=== PATIENT | female | born 1940 | race Caucasian/White ===

== ENCOUNTER → 2017-07-12 09:48 | Outpatient (CLI) | payer MEDICARE, SELFPAY ==
[2017-07-12 12:36] LABS: Absolute Neutrophil Count 1.6 X10^3/uL (2.0-7.7); Basophil# 0.01 X10^3/uL; Basophil% 0.2 % (0-1); Eosinophil# 0.12 X10^3/uL; Eosinophils% 2.8 % (0-5); Hematocrit 39.1 % (37-47); Hemoglobin 12.7 g/dl (12.0-15.0); Lymphocyte % 46.4 % (19-41); Mean Corp Hgb Conc 32.5 g/gl (32-36); Mean Corpuscular Hgb 32.9 pg (27.0-32.0); Mean Corpuscular Volume 101.3 fL (81-99); Mean Platelet Vol. 10.6 fl (6.2-12.0); Monocyte# 0.59 X10^3/uL; Monocyte% 13.7 % (0-10); Neutrophil # 1.58 X10^3/uL (2.7-7.7); Neutrophil % 36.7 % (47-70); Platelet Count 258 K/mm3 (150-450); RBC Distribution Width CV 12.6 % (11.6-14.6); RBC Distribution Width SD 46.5 fl (35.1-43.9); Red Blood Count 3.86 M/mm3 (4.2-5.4); White Blood Count 4.3 K/mm3 (4.4-11.0)
[2017-07-12 12:38] LABS: AST(SGOT) 21 U/L (15-37); Alanine Aminotransfer ALT/SGPT 20 U/L (13-56); Albumin, Serum 3.6 g/dL (3.2-5.0); Alkaline Phosphatase 75 U/L (45-117); Anion Gap 4 (5-15); BUN 12 mg/dL (7-18); BUN/Creat Ratio 16.2 RATIO (10-20); Calcium,Total 8.7 mg/dL (8.5-10.1); Chloride 103 mmol/L (98-107); Creatinine, Serum 0.74 mg/dL (0.55-1.02); EST Glomerular Filtration Rate 80 mL/min (>60); Est Glom Filt Rate - Afr Amer 97 mL/min (>60); Globulin 3.5 g/dL (2.2-4.2); Glucose 89 mg/dL (74-106); Potassium 4.1 mmol/L (3.5-5.1); Protein, Total 7.1 g/dL (6.4-8.2); Sodium Level 138 mmol/L (136-145)
[2017-07-12 12:46] LABS: POSITIVE COUNT NO; POSITIVE DIFFERENTIAL NO; POSITIVE MORPHOLOGY NO
== END ==
PROVIDERS: Family Provider Family Medicine; PCP Family Medicine; Visit Provider Internal Medicine Rheumatology
DX: M06.00 Rheumatoid arthritis without rheumatoid factor, unspecified site (principal); Z79.899 Other long term (current) drug therapy; M17.0 Bilateral primary osteoarthritis of knee; M47.896 Other spondylosis, lumbar region
CPT/HCPCS: 36415; 80053; 85025

== ENCOUNTER → 2017-07-18 10:32 | Outpatient (CLI) | payer MEDICARE, SELFPAY ==
[2017-07-18 12:26] LABS: Thyroid Stim Hormone (TSH) 2.16 uIU/mL (0.358-3.74)
== END ==
PROVIDERS: Family Medicine; Family Provider Family Medicine; PCP Family Medicine; Visit Provider Family Medicine
DX: R63.5 Abnormal weight gain (principal)
CPT/HCPCS: 36415; 84443

== ENCOUNTER → 2017-07-26 12:00 | Outpatient (CLI) | payer MEDICARE, SELFPAY ==
--- NOTE | 2017-07-26 12:00 | DT_ITS ---
This patient was seen during an EMR downtime July 23, 2017 - July 30, 2017. This patient may have a combination of paper and electronic documentation or all paper documentation. All documentation is viewable within the e-chart portion of [facility] for each patient visit.
== END ==
PROVIDERS: Family Provider Family Medicine; PCP Family Medicine; Visit Provider Internal Medicine Rheumatology
DX: M06.00 Rheumatoid arthritis without rheumatoid factor, unspecified site (principal)
CPT/HCPCS: 96413; 96415; J7050; A4216; Q5103

== ENCOUNTER → 2017-09-27 09:48 | Outpatient (CLI) | payer MEDICARE, SELFPAY ==
[2017-09-27 10:06] VITALS: BP 121/65; PULSE 78; RESP 16; TEMP 36.9; O2SAT 98; BMI 27.5
[2017-09-27 10:57] VITALS: BP 105/57; PULSE 64; RESP 16; TEMP 36.3; O2SAT 98
[2017-09-27 11:13] VITALS: BP 107/61; PULSE 62; RESP 16; TEMP 36.2; O2SAT 99
[2017-09-27 11:35] VITALS: BP 116/69; PULSE 65; RESP 16; TEMP 36.4; O2SAT 100
[2017-09-27 11:53] VITALS: BP 115/53; PULSE 64; RESP 16; TEMP 36.4; O2SAT 99
== END ==
PROVIDERS: Family Provider Family Medicine; PCP Family Medicine; Visit Provider Internal Medicine Rheumatology
DX: M06.00 Rheumatoid arthritis without rheumatoid factor, unspecified site (principal)
CPT/HCPCS: 96365; 96413; J7050; A4216; Q5103

== ENCOUNTER → 2017-10-10 10:19 | Outpatient (CLI) | payer MEDICARE, SELFPAY ==
[2017-10-10 12:24] LABS: Absolute Lymphocyte Count 2.22 X10^3/ul (0.83-4.51); Absolute Neutrophil Count 1.9 X10^3/uL (2.0-7.7); Basophil# 0.03 X10^3/uL; Basophil% 0.6 % (0-1); Eosinophil# 0.17 X10^3/uL; Eosinophils% 3.4 % (0-5); Hematocrit 39.8 % (37-47); Hemoglobin 12.5 g/dl (12.0-15.0); Lymphocyte # 2.22 X10^3/ul (4.0); Lymphocyte % 44.6 % (19-41); Mean Corp Hgb Conc 31.4 g/gl (32-36); Mean Corpuscular Hgb 31.8 pg (27.0-32.0); Mean Corpuscular Volume 101.3 fL (81-99); Mean Platelet Vol. 10.6 fl (6.2-12.0); Monocyte% 14.1 % (0-10); Neutrophil # 1.86 X10^3/uL (2.7-7.7); Neutrophil % 37.3 % (47-70); Platelet Count 262 K/mm3 (150-450); RBC Distribution Width CV 13.3 % (11.6-14.6); RBC Distribution Width SD 49.7 fl (35.1-43.9); Red Blood Count 3.93 M/mm3 (4.2-5.4)
[2017-10-10 12:28] LABS: POSITIVE COUNT NO; POSITIVE DIFFERENTIAL NO; POSITIVE MORPHOLOGY NO
[2017-10-10 12:56] LABS: AST(SGOT) 19 U/L (15-37); Alanine Aminotransfer ALT/SGPT 19 U/L (13-56); Albumin, Serum 3.4 g/dL (3.2-5.0); Alkaline Phosphatase 76 U/L (45-117); Anion Gap 6 (5-15); BUN 18 mg/dL (7-18); BUN/Creat Ratio 21.3 RATIO (10-20); Calcium,Total 8.7 mg/dL (8.5-10.1); Chloride 104 mmol/L (98-107); Creatinine, Serum 0.84 mg/dL (0.55-1.02); EST Glomerular Filtration Rate 69 mL/min (>60); Est Glom Filt Rate - Afr Amer 84 mL/min (>60); Globulin 3.5 g/dL (2.2-4.2); Glucose 85 mg/dL (74-106); Potassium 4.1 mmol/L (3.5-5.1); Protein, Total 6.9 g/dL (6.4-8.2); Sodium Level 140 mmol/L (136-145)
== END ==
PROVIDERS: Family Provider Family Medicine; PCP Family Medicine; Visit Provider Internal Medicine Rheumatology
DX: M06.00 Rheumatoid arthritis without rheumatoid factor, unspecified site (principal); Z79.899 Other long term (current) drug therapy; M17.0 Bilateral primary osteoarthritis of knee; M47.896 Other spondylosis, lumbar region
CPT/HCPCS: 36415; 80053; 85025

== ENCOUNTER → 2018-09-18 13:42 | Outpatient (CLI) | payer MEDICARE, SELFPAY ==
[2017-09-27 10:06] VITALS: BMI 27.5
[2018-09-18 14:53] LABS: Absolute Lymphocyte Count 2.64 X10^3/uL (0.83-4.51); Absolute Neutrophil Count 2.9 X10^3/uL (2.0-7.7); Basophil# 0.03 X10^3/uL; Basophil% 0.5 % (0-1); Eosinophil# 0.15 X10^3/uL; Eosinophils% 2.4 % (0-5); Hematocrit 39.8 % (37-47); Hemoglobin 12.5 g/dL (12.0-15.0); Lymphocyte # 2.64 X10^3/ul (4.0); Lymphocyte % 42.5 % (19-41); Mean Corp Hgb Conc 31.4 g/dL (32-36); Mean Corpuscular Hgb 31.1 pg (27.0-32.0); Mean Platelet Vol. 10.1 fl (6.2-12.0); Monocyte# 0.52 X10^3/uL; Monocyte% 8.4 % (0-10); NRBC Flagged by Analyzer 0 % (0-5); Neutrophil # 2.85 X10^3/uL (2.7-7.7); Neutrophil % 45.9 % (47-70); Platelet Count 278 K/mm3 (150-450); RBC Distribution Width CV 12.6 % (11.6-14.6); RBC Distribution Width SD 45.6 fl (35.1-43.9); Red Blood Count 4.02 M/mm3 (4.2-5.4); White Blood Count 6.2 K/mm3 (4.4-11.0)
[2018-09-18 15:32] LABS: AST(SGOT) 21 U/L (15-37); Alanine Aminotransfer ALT/SGPT 16 U/L (13-56); Albumin, Serum 3.4 g/dL (3.2-5.0); Alkaline Phosphatase 93 U/L (45-117); Anion Gap 4 (5-15); BUN 12 mg/dL (7-18); BUN/Creat Ratio 14.5 RATIO (10-20); Calcium,Total 8.5 mg/dL (8.5-10.1); Chloride 105 mmol/L (98-107); Creatinine, Serum 0.82 mg/dL (0.55-1.02); EST Glomerular Filtration Rate 71 mL/min (>60); Est Glom Filt Rate - Afr Amer 86 mL/min (>60); Globulin 3.5 g/dL (2.2-4.2); Glucose 106 mg/dL (74-106); Potassium 3.6 mmol/L (3.5-5.1); Protein, Total 6.9 g/dL (6.4-8.2); Sodium Level 141 mmol/L (136-145)
== END ==
PROVIDERS: Family Provider Family Medicine; PCP Family Medicine; Referring Provider Internal Medicine Rheumatology; Visit Provider Internal Medicine Rheumatology
DX: M06.00 Rheumatoid arthritis without rheumatoid factor, unspecified site (principal); Z79.899 Other long term (current) drug therapy; M17.0 Bilateral primary osteoarthritis of knee; M47.896 Other spondylosis, lumbar region
CPT/HCPCS: 36415; 80053; 85025

== ENCOUNTER → 2019-08-07 07:59 | Outpatient (CLI) | payer MEDICARE, SELFPAY ==
[2017-09-27 10:06] VITALS: BMI 27.5
[2019-08-07 10:17] LABS: Absolute Lymphocyte Count 1.92 X10^3/uL (0.83-4.51); Absolute Neutrophil Count 2.2 X10^3/uL (2.0-7.7); Basophil# 0.02 X10^3/uL; Basophil% 0.4 % (0-1); Eosinophil# 0.08 X10^3/uL; Eosinophils% 1.7 % (0-5); Hemoglobin 12.3 g/dL (12.0-15.0); Lymphocyte # 1.92 X10^3/ul (4.0); Lymphocyte % 39.9 % (19-41); Mean Corp Hgb Conc 31.5 g/dL (32-36); Mean Corpuscular Hgb 32.6 pg (27.0-32.0); Mean Corpuscular Volume 103.4 fL (81-99); Mean Platelet Vol. 10.1 fl (6.2-12.0); Monocyte# 0.55 X10^3/uL; Monocyte% 11.4 % (0-10); NRBC Flagged by Analyzer 0 % (0-5); Neutrophil # 2.23 X10^3/uL (2.7-7.7); Neutrophil % 46.4 % (47-70); Platelet Count 311 K/mm3 (150-450); RBC Distribution Width CV 13.2 % (11.6-14.6); RBC Distribution Width SD 50.5 fl (35.1-43.9); Red Blood Count 3.77 M/mm3 (4.2-5.4); White Blood Count 4.8 K/mm3 (4.4-11.0)
[2019-08-07 10:41] LABS: AST(SGOT) 17 U/L (15-37); Alanine Aminotransfer ALT/SGPT 18 U/L (13-56); Albumin, Serum 3.5 g/dL (3.2-5.0); Alkaline Phosphatase 79 U/L (45-117); Anion Gap 5 (5-15); BUN 15 mg/dL (7-18); BUN/Creat Ratio 19.4 RATIO (10-20); Calcium,Total 8.8 mg/dL (8.5-10.1); Chloride 102 mmol/L (98-107); Creatinine, Serum 0.77 mg/dL (0.55-1.02); EST Glomerular Filtration Rate 76 mL/min (>60); Est Glom Filt Rate - Afr Amer 92 mL/min (>60); Globulin 3.5 g/dL (2.2-4.2); Glucose 93 mg/dL (74-106); Sodium Level 140 mmol/L (136-145)
== END ==
PROVIDERS: Referring Provider Internal Medicine Rheumatology; Visit Provider Internal Medicine Rheumatology
DX: M06.00 Rheumatoid arthritis without rheumatoid factor, unspecified site (principal); M17.0 Bilateral primary osteoarthritis of knee; M47.896 Other spondylosis, lumbar region; Z79.899 Other long term (current) drug therapy
CPT/HCPCS: 36415; 80053; 85025

== ENCOUNTER → 2019-09-03 10:47 | Outpatient (CLI) | payer MEDICARE, SELFPAY ==
[2017-09-27 10:06] VITALS: BMI 27.5
[2019-09-03 11:07] VITALS: BP 123/63; PULSE 66; RESP 16; TEMP 36.7; BMI 25.4
[2019-09-03] MEDS: 0.9% NaCl IVPB Med Flush (250 mL) 15 ML IV (11:16)
[2019-09-03] MEDS: 0.9% NaCl Peripheral Flush Adult/Peds IV (11:16)
[2019-09-03 11:46] VITALS: BP 124/63; PULSE 50; RESP 16; TEMP 37.2
== END ==
PROVIDERS: Referring Provider Internal Medicine Rheumatology; Visit Provider Internal Medicine Rheumatology
DX: M06.00 Rheumatoid arthritis without rheumatoid factor, unspecified site (principal)
CPT/HCPCS: 96365; J7050; A4216; J1602

== ENCOUNTER → 2019-10-02 09:45 | Outpatient (CLI) | payer MEDICARE, SELFPAY ==
[2019-09-03 11:07] VITALS: BMI 25.4
[2019-10-02 12:30] LABS: Absolute Lymphocyte Count 1.96 X10^3/uL (0.83-4.51); Absolute Neutrophil Count 4.7 X10^3/uL (2.0-7.7); Basophil# 0.04 X10^3/uL; Basophil% 0.5 % (0-1); Eosinophil# 0.07 X10^3/uL; Eosinophils% 0.9 % (0-5); Hematocrit 40.3 % (37-47); Hemoglobin 12.8 g/dL (12.0-15.0); Lymphocyte # 1.96 X10^3/ul (4.0); Lymphocyte % 26.1 % (19-41); Mean Corp Hgb Conc 31.8 g/dL (32-36); Mean Corpuscular Hgb 32.6 pg (27.0-32.0); Mean Corpuscular Volume 102.5 fL (81-99); Mean Platelet Vol. 10.1 fl (6.2-12.0); Monocyte% 9.3 % (0-10); NRBC Flagged by Analyzer 0 % (0-5); Neutrophil # 4.71 X10^3/uL (2.7-7.7); Neutrophil % 62.7 % (47-70); Platelet Count 311 K/mm3 (150-450); RBC Distribution Width CV 12.2 % (11.6-14.6); RBC Distribution Width SD 46.5 fl (35.1-43.9); Red Blood Count 3.93 M/mm3 (4.2-5.4); White Blood Count 7.5 K/mm3 (4.4-11.0)
[2019-10-02 12:44] LABS: AST(SGOT) 12 U/L (15-37); Alanine Aminotransfer ALT/SGPT 17 U/L (13-56); Albumin, Serum 3.5 g/dL (3.2-5.0); Alkaline Phosphatase 70 U/L (45-117); Anion Gap 3 (5-15); BUN 17 mg/dL (7-18); BUN/Creat Ratio 19.8 RATIO (10-20); Calcium,Total 8.7 mg/dL (8.5-10.1); Chloride 100 mmol/L (98-107); Creatinine, Serum 0.86 mg/dL (0.55-1.02); EST Glomerular Filtration Rate 68 mL/min (>60); Est Glom Filt Rate - Afr Amer 82 mL/min (>60); Globulin 3.6 g/dL (2.2-4.2); Glucose 91 mg/dL (74-106); Potassium 3.5 mmol/L (3.5-5.1); Protein, Total 7.1 g/dL (6.4-8.2); Sodium Level 138 mmol/L (136-145)
== END ==
PROVIDERS: Referring Provider Internal Medicine Rheumatology; Visit Provider Internal Medicine Rheumatology
DX: M06.00 Rheumatoid arthritis without rheumatoid factor, unspecified site (principal); Z79.899 Other long term (current) drug therapy; M17.0 Bilateral primary osteoarthritis of knee; M47.896 Other spondylosis, lumbar region
CPT/HCPCS: 36415; 80053; 85025

== ENCOUNTER → 2019-10-29 10:47 | Outpatient (CLI) | payer MEDICARE, SELFPAY ==
[2019-09-03 11:07] VITALS: BMI 25.4
[2019-10-29 11:24] VITALS: BP 105/48; PULSE 66; RESP 16; TEMP 35.9; O2SAT 97; BMI 25.4
[2019-10-29] MEDS: 0.9% NaCl Peripheral Flush Adult/Peds IV (11:32)
[2019-10-29] MEDS: 0.9% NaCl IVPB Med Flush (250 mL) 15 ML IV (11:35)
[2019-10-29 12:28] VITALS: BP 105/53; RESP 12; TEMP 36.8; O2SAT 99
== END ==
PROVIDERS: Referring Provider Internal Medicine Rheumatology; Visit Provider Internal Medicine Rheumatology
DX: M06.00 Rheumatoid arthritis without rheumatoid factor, unspecified site (principal)
CPT/HCPCS: 96365; J7050; A4216; J1602

== ENCOUNTER → 2019-10-30 09:30 | Outpatient (CLI) | payer MEDICARE, SELFPAY ==
[2019-10-29 11:24] VITALS: BMI 25.4
[2019-10-30 12:52] LABS: Absolute Lymphocyte Count 1.65 X10^3/uL (0.83-4.51); Absolute Neutrophil Count 4.1 X10^3/uL (2.0-7.7); Basophil# 0.03 X10^3/uL; Basophil% 0.5 % (0-1); Eosinophil# 0.06 X10^3/uL; Eosinophils% 0.9 % (0-5); Hematocrit 39.1 % (37-47); Hemoglobin 12.2 g/dL (12.0-15.0); Lymphocyte # 1.65 X10^3/ul (4.0); Lymphocyte % 25.9 % (19-41); Mean Corp Hgb Conc 31.2 g/dL (32-36); Mean Corpuscular Hgb 31.9 pg (27.0-32.0); Mean Corpuscular Volume 102.1 fL (81-99); Mean Platelet Vol. 10.1 fl (6.2-12.0); Monocyte# 0.56 X10^3/uL; Monocyte% 8.8 % (0-10); NRBC Flagged by Analyzer 0 % (0-5); Neutrophil # 4.05 X10^3/uL (2.7-7.7); Neutrophil % 63.6 % (47-70); Platelet Count 329 K/mm3 (150-450); RBC Distribution Width CV 12.7 % (11.6-14.6); RBC Distribution Width SD 47.2 fl (35.1-43.9); Red Blood Count 3.83 M/mm3 (4.2-5.4); White Blood Count 6.4 K/mm3 (4.4-11.0)
[2019-10-30 13:21] LABS: ALB/GLOB Ratio 1.1 RATIO (0.9-2.4); AST(SGOT) 20 U/L (15-37); Alanine Aminotransfer ALT/SGPT 16 U/L (13-56); Albumin, Serum 3.5 g/dL (3.2-5.0); Alkaline Phosphatase 62 U/L (45-117); Anion Gap 5 (5-15); BUN 19 mg/dL (7-18); BUN/Creat Ratio 21.4 RATIO (10-20); Calcium,Total 8.8 mg/dL (8.5-10.1); Chloride 103 mmol/L (98-107); Creatinine, Serum 0.89 mg/dL (0.55-1.02); EST Glomerular Filtration Rate 65 mL/min (>60); Est Glom Filt Rate - Afr Amer 79 mL/min (>60); Globulin 3.3 g/dL (2.2-4.2); Glucose 100 mg/dL (74-106); Potassium 3.9 mmol/L (3.5-5.1); Protein, Total 6.8 g/dL (6.4-8.2); Sodium Level 139 mmol/L (136-145)
== END ==
PROVIDERS: Referring Provider Internal Medicine Rheumatology; Visit Provider Internal Medicine Rheumatology
DX: M06.00 Rheumatoid arthritis without rheumatoid factor, unspecified site (principal); Z79.899 Other long term (current) drug therapy; M17.0 Bilateral primary osteoarthritis of knee; M47.896 Other spondylosis, lumbar region
CPT/HCPCS: 36415; 80053; 85025

== ENCOUNTER → 2020-07-20 11:02 | Outpatient (CLI) | payer MEDICARE, SELFPAY ==
[2019-10-29 11:24] VITALS: BMI 25.4
[2020-07-20 12:24] LABS: Absolute Lymphocyte Count 1.86 X10^3/uL (0.83-4.51); Basophil# 0.03 X10^3/uL; Basophil% 0.6 % (0-1); Eosinophil# 0.12 X10^3/uL; Eosinophils% 2.5 % (0-5); Hematocrit 38.9 % (37-47); Hemoglobin 12.3 g/dL (12.0-15.0); Lymphocyte # 1.86 X10^3/ul (0.83-4.51); Lymphocyte % 39.5 % (19-41); Mean Corp Hgb Conc 31.6 g/dL (32-36); Mean Corpuscular Hgb 32.3 pg (27.0-32.0); Mean Corpuscular Volume 102.1 fL (81-99); Mean Platelet Vol. 10.4 fl (6.2-12.0); Monocyte# 0.73 X10^3/uL; Monocyte% 15.5 % (0-10); NRBC Flagged by Analyzer 0 % (0-5); Neutrophil # 1.95 X10^3/uL (2.7-7.7); Neutrophil % 41.5 % (47-70); Platelet Count 277 K/mm3 (150-450); Red Blood Count 3.81 M/mm3 (4.2-5.4); White Blood Count 4.7 K/mm3 (4.4-11.0)
[2020-07-20 13:07] LABS: ALB/GLOB Ratio 1.1 RATIO (0.9-2.4); AST(SGOT) 19 U/L (15-37); Alanine Aminotransfer ALT/SGPT 16 U/L (13-56); Albumin, Serum 3.6 g/dL (3.2-5.0); Alkaline Phosphatase 73 U/L (45-117); Anion Gap 2 (5-15); BUN 17 mg/dL (7-18); BUN/Creat Ratio 22.3 RATIO (10-20); Chloride 106 mmol/L (98-107); Creatinine, Serum 0.76 mg/dL (0.55-1.02); EST Glomerular Filtration Rate 77 mL/min (>60); Est Glom Filt Rate - Afr Amer 93 mL/min (>60); Globulin 3.3 g/dL (2.2-4.2); Glucose 81 mg/dL (74-106); Potassium 4.2 mmol/L (3.5-5.1); Protein, Total 6.9 g/dL (6.4-8.2); Sodium Level 140 mmol/L (136-145)
[2020-07-22 20:08] LABS: QNTFERON TB Mitogen Value > 10.00 IU/mL (.); QNTFERON TB Nil Value 0.05 IU/mL (.); QNTFERON TB1+ Ag Value 0.14 IU/mL (.); QNTFERON TB2+ Ag Value 0.14 IU/mL (.)
[2020-07-22 21:04] LABS: QNTIFERON TB Positive Criteria Negative (Negative)
== END ==
PROVIDERS: Referring Provider Internal Medicine Rheumatology; Visit Provider Internal Medicine Rheumatology
DX: M06.00 Rheumatoid arthritis without rheumatoid factor, unspecified site (principal); Z79.899 Other long term (current) drug therapy; M17.0 Bilateral primary osteoarthritis of knee; M47.896 Other spondylosis, lumbar region
CPT/HCPCS: 36415; 80053; 85025; 86480

== ENCOUNTER → 2020-08-26 07:56 | Outpatient (CLI) | payer MEDICARE, SELFPAY ==
[2019-10-29 11:24] VITALS: BMI 25.4
[2020-08-26 08:06] VITALS: BP 117/62; PULSE 84; RESP 16; TEMP 36.2; O2SAT 96; BMI 26.6
[2020-08-26] MEDS: 0.9% NaCl IVPB Med Flush (250 mL) 15 ML IV (08:20)
[2020-08-26] MEDS: 0.9% NaCl Peripheral Flush Adult/Peds IV (08:20)
[2020-08-26 09:33] VITALS: BP 110/59; PULSE 64; RESP 16; O2SAT 98
== END ==
PROVIDERS: Referring Provider Internal Medicine Rheumatology; Visit Provider Internal Medicine Rheumatology
DX: M06.00 Rheumatoid arthritis without rheumatoid factor, unspecified site (principal)
CPT/HCPCS: 96365; J7050; A4216; J1602

== ENCOUNTER → 2020-10-04 09:51 | Outpatient (CLI) | payer MEDICARE, SELFPAY ==
[2020-08-26 08:06] VITALS: BMI 26.6
[2020-10-04 12:02] LABS: Absolute Lymphocyte Count 1.98 X10^3/uL (0.83-4.51); Absolute Neutrophil Count 2.3 X10^3/uL (2.0-7.7); Basophil# 0.04 X10^3/uL; Basophil% 0.8 % (0-1); Eosinophil# 0.13 X10^3/uL; Eosinophils% 2.6 % (0-5); Hematocrit 41.2 % (37-47); Hemoglobin 13.1 g/dL (12.0-15.0); Lymphocyte # 1.98 X10^3/ul (0.83-4.51); Mean Corp Hgb Conc 31.8 g/dL (32-36); Mean Corpuscular Volume 100.7 fL (81-99); Mean Platelet Vol. 10.8 fl (6.2-12.0); Monocyte% 10.1 % (0-10); NRBC Flagged by Analyzer 0 % (0-5); Neutrophil # 2.28 X10^3/uL (2.7-7.7); Neutrophil % 46.1 % (47-70); Platelet Count 305 K/mm3 (150-450); RBC Distribution Width CV 12.8 % (11.6-14.6); RBC Distribution Width SD 47.5 fl (35.1-43.9); Red Blood Count 4.09 M/mm3 (4.2-5.4)
[2020-10-04 12:23] LABS: ALB/GLOB Ratio 1.1 RATIO (0.9-2.4); AST(SGOT) 19 U/L (15-37); Alanine Aminotransfer ALT/SGPT 23 U/L (13-56); Albumin, Serum 3.7 g/dL (3.2-5.0); Alkaline Phosphatase 82 U/L (45-117); Anion Gap 3 (5-15); BUN 16 mg/dL (7-18); BUN/Creat Ratio 23.3 RATIO (10-20); Calcium,Total 8.9 mg/dL (8.5-10.1); Chloride 103 mmol/L (98-107); Creatinine, Serum 0.69 mg/dL (0.55-1.02); EST Glomerular Filtration Rate 87 mL/min (>60); Est Glom Filt Rate - Afr Amer 105 mL/min (>60); Globulin 3.4 g/dL (2.2-4.2); Glucose 99 mg/dL (74-106); Potassium 3.9 mmol/L (3.5-5.1); Protein, Total 7.1 g/dL (6.4-8.2); Sodium Level 139 mmol/L (136-145)
== END ==
PROVIDERS: Referring Provider Internal Medicine Rheumatology; Visit Provider Internal Medicine Rheumatology
DX: M06.00 Rheumatoid arthritis without rheumatoid factor, unspecified site (principal); Z79.899 Other long term (current) drug therapy; M17.0 Bilateral primary osteoarthritis of knee; M47.896 Other spondylosis, lumbar region
CPT/HCPCS: 36415; 80053; 85025

== ENCOUNTER → 2020-10-21 08:10 | Outpatient (CLI) | payer MEDICARE, SELFPAY ==
[2019-10-29 11:24] VITALS: BMI 25.4
[2020-10-21 08:17] VITALS: BP 126/55; PULSE 73; RESP 16; TEMP 36.2; O2SAT 96; BMI 26.6
[2020-10-21] MEDS: 0.9% NaCl Peripheral Flush Adult/Peds IV (08:30)
[2020-10-21] MEDS: 0.9% NaCl IVPB Med Flush (250 mL) 15 ML IV (08:33)
[2020-10-21 09:32] VITALS: BP 111/57; PULSE 65; RESP 16; TEMP 36.4; O2SAT 98
== END ==
PROVIDERS: Referring Provider Internal Medicine Rheumatology; Visit Provider Internal Medicine Rheumatology
DX: M06.00 Rheumatoid arthritis without rheumatoid factor, unspecified site (principal)
CPT/HCPCS: 96365; J7050; A4216; J1602

== ENCOUNTER → 2021-07-15 | Outpatient (CLI) | payer MEDICARE, SELFPAY ==
[2021-07-15 12:33] LABS: Absolute Lymphocyte Count 1.71 X10^3/uL (0.83-4.51); Absolute Neutrophil Count 2.1 X10^3/uL (2.0-7.7); Basophil# 0.04 X10^3/uL; Basophil% 0.9 % (0-1); Eosinophil# 0.08 X10^3/uL; Eosinophils% 1.8 % (0-5); Hematocrit 35.9 % (37-47); Hemoglobin 11.6 g/dL (12.0-15.0); Lymphocyte # 1.71 X10^3/ul (0.83-4.51); Lymphocyte % 38.8 % (19-41); Mean Corp Hgb Conc 32.3 g/dL (32-36); Mean Corpuscular Hgb 33.1 pg (27.0-32.0); Mean Corpuscular Volume 102.6 fL (81-99); Mean Platelet Vol. 10.3 fl (6.2-12.0); Monocyte# 0.51 X10^3/uL; Monocyte% 11.6 % (0-10); NRBC Flagged by Analyzer 0 % (0-5); Neutrophil # 2.05 X10^3/uL (2.7-7.7); Neutrophil % 46.4 % (47-70); Platelet Count 321 K/mm3 (150-450); RBC Distribution Width CV 12.5 % (11.6-14.6); RBC Distribution Width SD 46.6 fl (35.1-43.9); White Blood Count 4.4 K/mm3 (4.4-11.0)
[2021-07-15 12:50] LABS: ALB/GLOB Ratio 0.9 RATIO (0.9-2.4); AST(SGOT) 18 U/L (15-37); Alanine Aminotransfer ALT/SGPT 17 U/L (13-56); Albumin, Serum 3.4 g/dL (3.2-5.0); Alkaline Phosphatase 64 U/L (45-117); Anion Gap 5 (5-15); BUN 22 mg/dL (7-18); BUN/Creat Ratio 27.1 RATIO (10-20); Calcium,Total 9.1 mg/dL (8.5-10.1); Chloride 102 mmol/L (98-107); Creatinine, Serum 0.81 mg/dL (0.55-1.02); EST Glomerular Filtration Rate 72 mL/min (>60); Est Glom Filt Rate - Afr Amer 87 mL/min (>60); Globulin 3.6 g/dL (2.2-4.2); Glucose 102 mg/dL (74-106); Potassium 3.9 mmol/L (3.5-5.1); Sodium Level 139 mmol/L (136-145)
== END | disposition home or self-care (01) ==
LOC: MTLAB 09:21
PROVIDERS: Referring Provider Internal Medicine Rheumatology; Visit Provider Internal Medicine Rheumatology
DX: M06.00 Rheumatoid arthritis without rheumatoid factor, unspecified site (principal); Z79.899 Other long term (current) drug therapy; M17.0 Bilateral primary osteoarthritis of knee; M47.896 Other spondylosis, lumbar region
CPT/HCPCS: 36415; 80053; 85025

== ENCOUNTER → 2021-08-25 | Outpatient (CLI) | payer MEDICARE, SELFPAY ==
[2021-08-25 08:24] VITALS: BP 127/75; PULSE 89; RESP 16; TEMP 37.1; O2SAT 95; BMI 27.1
[2021-08-25] MEDS: 0.9% NaCl Peripheral Flush Adult/Peds IV (08:43)
[2021-08-25] MEDS: 0.9% NaCl IVPB Med Flush (250 mL) 15 ML IV (08:43)
[2021-08-25 09:24] VITALS: BP 118/60; PULSE 81; TEMP 37.3; O2SAT 96
== END | disposition home or self-care (01) ==
LOC: MEDOUTP 08:17
PROVIDERS: Referring Provider Internal Medicine Rheumatology; Visit Provider Internal Medicine Rheumatology
DX: M06.00 Rheumatoid arthritis without rheumatoid factor, unspecified site (principal)
CPT/HCPCS: 96365; J7050; A4216; J1602

== ENCOUNTER → 2021-10-13 | Outpatient (CLI) | payer MEDICARE, SELFPAY ==
[2021-10-13 11:58] LABS: Hematocrit 36.1 % (37-47); Hemoglobin 11.6 g/dL (12.0-15.0); Mean Corp Hgb Conc 32.1 g/dL (32-36); Mean Corpuscular Hgb 32.2 pg (27.0-32.0); Mean Corpuscular Volume 100.3 fL (81-99); Mean Platelet Vol. 9.6 fl (6.2-12.0); POSITIVE COUNT YES; POSITIVE MORPHOLOGY YES; Platelet Count 474 K/mm3 (150-450); RBC Distribution Width CV 13.4 % (11.6-14.6); RBC Distribution Width SD 49.4 fl (35.1-43.9); White Blood Count 7.5 K/mm3 (4.4-11.0)
[2021-10-13 12:09] LABS: Differential Indicated MANUAL DIFF
[2021-10-13 12:15] LABS: ALB/GLOB Ratio 0.7 RATIO (0.9-2.4); AST(SGOT) 47 U/L (15-37); Alanine Aminotransfer ALT/SGPT 48 U/L (13-56); Albumin, Serum 2.8 g/dL (3.2-5.0); Alkaline Phosphatase 86 U/L (45-117); Anion Gap 6 (5-15); BUN 15 mg/dL (7-18); BUN/Creat Ratio 18.3 RATIO (10-20); Calcium,Total 9.3 mg/dL (8.5-10.1); Chloride 101 mmol/L (98-107); Creatinine, Serum 0.82 mg/dL (0.55-1.02); EST Glomerular Filtration Rate 71 mL/min (>60); Est Glom Filt Rate - Afr Amer 86 mL/min (>60); Globulin 4.1 g/dL (2.2-4.2); Glucose 140 mg/dL (74-106); Protein, Total 6.9 g/dL (6.4-8.2); Sodium Level 138 mmol/L (136-145)
[2021-10-13 13:33] LABS: Lymphocyte 39 % (19-41); Metamyelocyte 1 % (0-1); Monocyte 8 % (0-10); Myelocyte 5 % (0-0); Neutrophil-Band 2 % (0-5); Neutrophil-Segmented 45 % (47-70); Platelet Estimate ADEQUATE (ADEQ); Red Cell Morphology NORM C+C NORMAL (NORM C&C); Total Cells Counted 100 (MANUAL DIFF)
[2021-10-13 13:34] LABS: Absolute Lymphocyte Count 2.92 X10^3/uL (0.83-4.51); Absolute Neutrophil Count 3.5 X10^3/uL (2.0-7.7)
[2021-10-14 15:11] LABS: Pathologist Review Reviewed
== END | disposition home or self-care (01) ==
LOC: MTLAB 10:04
PROVIDERS: Referring Provider Internal Medicine Rheumatology; Visit Provider Internal Medicine Rheumatology
DX: M06.00 Rheumatoid arthritis without rheumatoid factor, unspecified site (principal); Z79.899 Other long term (current) drug therapy; M17.0 Bilateral primary osteoarthritis of knee; M47.896 Other spondylosis, lumbar region
CPT/HCPCS: 36415; 80053; 85025

== ENCOUNTER → 2021-10-28 | Outpatient (CLI) | payer MEDICARE, SELFPAY ==
[2021-10-28 08:28] VITALS: BP 111/61; PULSE 70; RESP 16; TEMP 35.9; O2SAT 95; BMI 25.8
[2021-10-28] MEDS: 0.9% NaCl Peripheral Flush Adult/Peds IV (08:40)
[2021-10-28] MEDS: 0.9% NaCl IVPB Med Flush (250 mL) 15 ML IV (09:09)
[2021-10-28 10:04] VITALS: BP 117/65; PULSE 65
== END | disposition home or self-care (01) ==
LOC: MEDOUTP 08:22
PROVIDERS: Referring Provider Internal Medicine Rheumatology; Visit Provider Internal Medicine Rheumatology
DX: M06.00 Rheumatoid arthritis without rheumatoid factor, unspecified site (principal)
CPT/HCPCS: 96365; J7050; A4216; J1602

== ENCOUNTER → 2021-11-08 | Outpatient (CLI) | payer MEDICARE, SELFPAY ==
[2021-11-08 10:23] LABS: ALB/GLOB Ratio 0.9 RATIO (0.9-2.4); AST(SGOT) 16 U/L (15-37); Alanine Aminotransfer ALT/SGPT 15 U/L (13-56); Albumin, Serum 3.3 g/dL (3.2-5.0); Alkaline Phosphatase 79 U/L (45-117); Anion Gap 7 (5-15); BUN 17 mg/dL (7-18); BUN/Creat Ratio 22.3 RATIO (10-20); Calcium,Total 8.8 mg/dL (8.5-10.1); Chloride 104 mmol/L (98-107); Creatinine, Serum 0.76 mg/dL (0.55-1.02); EST Glomerular Filtration Rate 77 mL/min (>60); Est Glom Filt Rate - Afr Amer 93 mL/min (>60); Globulin 3.6 g/dL (2.2-4.2); Glucose 112 mg/dL (74-106); Potassium 3.7 mmol/L (3.5-5.1); Protein, Total 6.9 g/dL (6.4-8.2); Sodium Level 142 mmol/L (136-145)
== END | disposition home or self-care (01) ==
LOC: MTLAB 09:11
PROVIDERS: Referring Provider Internal Medicine Rheumatology; Visit Provider Internal Medicine Rheumatology
DX: M06.00 Rheumatoid arthritis without rheumatoid factor, unspecified site (principal); Z79.899 Other long term (current) drug therapy; M17.0 Bilateral primary osteoarthritis of knee; M47.896 Other spondylosis, lumbar region
CPT/HCPCS: 36415; 80053

== ENCOUNTER → 2022-07-19 | Outpatient (CLI) | payer MEDICARE, SELFPAY ==
[2022-07-19 10:59] LABS: Absolute Lymphocyte Count 1.96 X10^3/uL (0.83-4.51); Absolute Neutrophil Count 1.7 X10^3/uL (2.0-7.7); Basophil# 0.04 X10^3/uL; Basophil% 0.9 % (0-1); Eosinophil# 0.12 X10^3/uL; Eosinophils% 2.8 % (0-5); Hematocrit 38.4 % (37-47); Hemoglobin 12.2 g/dL (12.0-15.0); Lymphocyte # 1.96 X10^3/ul (0.83-4.51); Lymphocyte % 45.7 % (19-41); Mean Corp Hgb Conc 31.8 g/dL (32-36); Mean Corpuscular Hgb 32.4 pg (27.0-32.0); Mean Corpuscular Volume 102.1 fL (81-99); Mean Platelet Vol. 10.2 fl (6.2-12.0); Monocyte# 0.48 X10^3/uL; Monocyte% 11.2 % (0-10); NRBC Flagged by Analyzer 0 % (0-5); Neutrophil # 1.68 X10^3/uL (2.7-7.7); Neutrophil % 39.2 % (47-70); Platelet Count 290 K/mm3 (150-450); Red Blood Count 3.76 M/mm3 (4.2-5.4); White Blood Count 4.3 K/mm3 (4.4-11.0)
[2022-07-19 12:04] LABS: ALB/GLOB Ratio 1.1 RATIO (0.9-2.4); AST(SGOT) 25 U/L (15-37); Alanine Aminotransfer ALT/SGPT 20 U/L (13-56); Albumin, Serum 3.6 g/dL (3.2-5.0); Alkaline Phosphatase 76 U/L (45-117); Anion Gap 7 (5-15); BUN 15 mg/dL (7-18); BUN/Creat Ratio 19.2 RATIO (10-20); Calcium,Total 9.2 mg/dL (8.5-10.1); Chloride 106 mmol/L (98-107); Creatinine, Serum 0.78 mg/dL (0.55-1.02); EST Glomerular Filtration Rate 75 mL/min (>60); Est Glom Filt Rate - Afr Amer 90 mL/min (>60); Globulin 3.2 g/dL (2.2-4.2); Glucose 114 mg/dL (74-106); Potassium 4.2 mmol/L (3.5-5.1); Protein, Total 6.8 g/dL (6.4-8.2); Sodium Level 142 mmol/L (136-145)
== END | disposition home or self-care (01) ==
PROVIDERS: Referring Provider Internal Medicine Rheumatology; Visit Provider Internal Medicine Rheumatology
DX: M06.00 Rheumatoid arthritis without rheumatoid factor, unspecified site (principal); Z79.899 Other long term (current) drug therapy; M17.0 Bilateral primary osteoarthritis of knee; M47.896 Other spondylosis, lumbar region
CPT/HCPCS: 36415; 80053; 85025

== ENCOUNTER → 2022-07-21 | Outpatient (CLI) | payer MEDICARE, SELFPAY ==
[2022-07-25 08:12] LABS: QNTFERON TB Mitogen Value > 10.00 IU/mL (.); QNTFERON TB1+ Ag Value 0.15 IU/mL (.); QNTFERON TB2+ Ag Value 0.14 IU/mL (.); QNTIFERON TB Positive Criteria Negative (Negative)
== END | disposition home or self-care (01) ==
LOC: MTLAB 10:11
PROVIDERS: Referring Provider Internal Medicine Rheumatology; Visit Provider Internal Medicine Rheumatology
DX: M06.00 Rheumatoid arthritis without rheumatoid factor, unspecified site (principal); Z79.899 Other long term (current) drug therapy; M17.0 Bilateral primary osteoarthritis of knee; M47.896 Other spondylosis, lumbar region
CPT/HCPCS: 36415; 86480

== ENCOUNTER 2022-09-13 08:25 | Outpatient (CLI) | payer MEDICARE, SELFPAY ==
[2022-09-13 08:37] VITALS: BP 121/67; PULSE 68; RESP 16; TEMP 36.2; O2SAT 96; BMI 26.2
[2022-09-13 10:05] VITALS: BP 103/61; PULSE 62; RESP 16; TEMP 36.1; O2SAT 96
== END 2022-09-13 08:26 | disposition home or self-care (01) ==
PROVIDERS: Referring Provider Internal Medicine Rheumatology; Visit Provider Internal Medicine Rheumatology
DX: M06.00 Rheumatoid arthritis without rheumatoid factor, unspecified site (principal)
CPT/HCPCS: 96365; J7050; A4216; J1602

== ENCOUNTER → 2022-10-16 | Outpatient (CLI) | payer MEDICARE, SELFPAY ==
[2022-10-16 12:07] LABS: Absolute Lymphocyte Count 2.24 X10^3/uL (0.83-4.51); Absolute Neutrophil Count 2.2 X10^3/uL (2.0-7.7); Basophil# 0.05 X10^3/uL; Basophil% 0.9 % (0-1); Eosinophil# 0.13 X10^3/uL; Eosinophils% 2.5 % (0-5); Hematocrit 40.2 % (37-47); Hemoglobin 12.4 g/dL (12.0-15.0); Lymphocyte # 2.24 X10^3/ul (0.83-4.51); Lymphocyte % 42.5 % (19-41); Mean Corp Hgb Conc 30.8 g/dL (32-36); Mean Corpuscular Volume 103.6 fL (81-99); Mean Platelet Vol. 10.5 fl (6.2-12.0); Monocyte# 0.67 X10^3/uL; Monocyte% 12.7 % (0-10); NRBC Flagged by Analyzer 0 % (0-5); Neutrophil # 2.17 X10^3/uL (2.7-7.7); Neutrophil % 41.2 % (47-70); Platelet Count 282 K/mm3 (150-450); RBC Distribution Width CV 12.7 % (11.6-14.6); RBC Distribution Width SD 48.2 fl (35.1-43.9); Red Blood Count 3.88 M/mm3 (4.2-5.4); White Blood Count 5.3 K/mm3 (4.4-11.0)
[2022-10-16 12:50] LABS: AST(SGOT) 17 U/L (15-37); Alanine Aminotransfer ALT/SGPT 17 U/L (13-56); Albumin, Serum 3.3 g/dL (3.2-5.0); Alkaline Phosphatase 77 U/L (45-117); Anion Gap 3 (5-15); BUN 18 mg/dL (7-18); BUN/Creat Ratio 22.4 RATIO (10-20); Calcium,Total 8.7 mg/dL (8.5-10.1); Chloride 105 mmol/L (98-107); EST Glomerular Filtration Rate 72 mL/min (>60); Est Glom Filt Rate - Afr Amer 87 mL/min (>60); Globulin 3.4 g/dL (2.2-4.2); Glucose 69 mg/dL (74-106); Potassium 4.1 mmol/L (3.5-5.1); Protein, Total 6.7 g/dL (6.4-8.2); Sodium Level 138 mmol/L (136-145)
== END | disposition home or self-care (01) ==
LOC: MTLAB 09:34
PROVIDERS: Referring Provider Internal Medicine Rheumatology; Visit Provider Internal Medicine Rheumatology
DX: M06.00 Rheumatoid arthritis without rheumatoid factor, unspecified site (principal); Z79.899 Other long term (current) drug therapy; M17.0 Bilateral primary osteoarthritis of knee; M47.896 Other spondylosis, lumbar region
CPT/HCPCS: 36415; 80053; 85025

== ENCOUNTER 2022-11-08 08:28 | Outpatient (CLI) | payer MEDICARE, SELFPAY ==
[2022-11-08 08:40] VITALS: BP 78/58; PULSE 77; RESP 16; TEMP 36.5; O2SAT 96; BMI 26.4
[2022-11-08 10:11] VITALS: BP 104/58; PULSE 70; RESP 16; TEMP 36.2
== END 2022-11-08 08:29 | disposition home or self-care (01) ==
LOC: MEDOUTP 08:29
PROVIDERS: Referring Provider Internal Medicine Rheumatology; Visit Provider Internal Medicine Rheumatology
DX: M06.00 Rheumatoid arthritis without rheumatoid factor, unspecified site (principal)
CPT/HCPCS: 96365; J7050; A4216; J1602

== ENCOUNTER → 2023-07-25 | Outpatient (CLI) | payer MEDICARE, SELFPAY ==
[2023-07-25 10:13] LABS: Absolute Lymphocyte Count 2.06 X10^3/uL (0.83-4.51); Absolute Neutrophil Count 1.7 X10^3/uL (2.0-7.7); Basophil# 0.04 X10^3/uL; Basophil% 0.8 % (0-1); Eosinophil# 0.24 X10^3/uL; Hematocrit 38.5 % (37-47); Hemoglobin 12.4 g/dL (12.0-15.0); Lymphocyte # 2.06 X10^3/ul (0.83-4.51); Lymphocyte % 42.7 % (19-41); Mean Corp Hgb Conc 32.2 g/dL (32-36); Mean Corpuscular Hgb 32.8 pg (27.0-32.0); Mean Corpuscular Volume 101.9 fL (81-99); Mean Platelet Vol. 10.3 fl (6.2-12.0); Monocyte# 0.81 X10^3/uL; Monocyte% 16.8 % (0-10); NRBC Flagged by Analyzer 0 % (0-5); Neutrophil # 1.66 X10^3/uL (2.7-7.7); Neutrophil % 34.5 % (47-70); Platelet Count 287 K/mm3 (150-450); RBC Distribution Width CV 13.1 % (11.6-14.6); RBC Distribution Width SD 48.8 fl (35.1-43.9); Red Blood Count 3.78 M/mm3 (4.2-5.4); White Blood Count 4.8 K/mm3 (4.4-11.0)
[2023-07-25 10:40] LABS: AST(SGOT) 19 U/L (15-37); Alanine Aminotransfer ALT/SGPT 18 U/L (13-56); Albumin, Serum 3.6 g/dL (3.2-5.0); Alkaline Phosphatase 84 U/L (45-117); Anion Gap 7 (5-15); BUN 12 mg/dL (7-18); BUN/Creat Ratio 14.7 RATIO (10-20); Calcium,Total 9.2 mg/dL (8.5-10.1); Chloride 104 mmol/L (98-107); Creatinine, Serum 0.82 mg/dL (0.55-1.02); EST Glomerular Filtration Rate 71 mL/min (>60); Est Glom Filt Rate - Afr Amer 86 mL/min (>60); Globulin 3.5 g/dL (2.2-4.2); Glucose 103 mg/dL (74-106); Protein, Total 7.1 g/dL (6.4-8.2); Sodium Level 138 mmol/L (136-145)
== END | disposition home or self-care (01) ==
LOC: MTLAB 08:27
PROVIDERS: Referring Provider Internal Medicine Rheumatology; Visit Provider Internal Medicine Rheumatology
DX: M06.00 Rheumatoid arthritis without rheumatoid factor, unspecified site (principal); Z79.899 Other long term (current) drug therapy
CPT/HCPCS: 36415; 80053; 85025

== ENCOUNTER 2023-08-24 08:52 | Outpatient (CLI) | payer MEDICARE, SELFPAY ==
[2023-08-24 08:57] VITALS: BP 117/48; PULSE 76; RESP 14; TEMP 35.9; O2SAT 97; BMI 26.9
[2023-08-24] MEDS: GOLIMUMAB IV (09:23)
[2023-08-24] MEDS: NORMAL SALINE 0.9% IV (09:23)
[2023-08-24 10:13] VITALS: BP 116/48; PULSE 71; RESP 16; O2SAT 98
== END 2023-08-24 23:59 | disposition home or self-care (01) ==
LOC: MEDOUTP 08:53
PROVIDERS: Referring Provider Internal Medicine Rheumatology; Visit Provider Internal Medicine Rheumatology
DX: M06.00 Rheumatoid arthritis without rheumatoid factor, unspecified site (principal)
CPT/HCPCS: 96365; A4216; J1602

== ENCOUNTER 2023-10-19 08:21 | Outpatient (CLI) | payer MEDICARE, SELFPAY ==
[2023-10-19 08:38] VITALS: BP 116/53; PULSE 73; RESP 16; TEMP 35.9; O2SAT 96; BMI 27.4
[2023-10-19] MEDS: GOLIMUMAB IV (09:04)
[2023-10-19] MEDS: NORMAL SALINE 0.9% IV (09:04)
== END 2023-10-19 23:59 | disposition home or self-care (01) ==
LOC: MEDOUTP 08:21
PROVIDERS: Referring Provider Internal Medicine Rheumatology; Visit Provider Internal Medicine Rheumatology
DX: M06.00 Rheumatoid arthritis without rheumatoid factor, unspecified site (principal)
CPT/HCPCS: 96365; J7050; A4216; J1602

== ENCOUNTER → 2023-10-23 | Outpatient (CLI) | payer MEDICARE, SELFPAY ==
[2023-10-23 12:20] LABS: Absolute Neutrophil Count 2.8 X10^3/uL (2.0-7.7); Basophil# 0.04 X10^3/uL; Basophil% 0.7 % (0-1); Eosinophil# 0.14 X10^3/uL; Eosinophils% 2.3 % (0-5); Hematocrit 36.8 % (37-47); Hemoglobin 11.8 g/dL (12.0-15.0); Lymphocyte % 38.4 % (19-41); Mean Corp Hgb Conc 32.1 g/dL (32-36); Mean Corpuscular Hgb 32.3 pg (27.0-32.0); Mean Corpuscular Volume 100.8 fL (81-99); Mean Platelet Vol. 10.3 fl (6.2-12.0); Monocyte# 0.74 X10^3/uL; Monocyte% 12.4 % (0-10); NRBC Flagged by Analyzer 0 % (0-5); Neutrophil # 2.75 X10^3/uL (2.7-7.7); Neutrophil % 45.9 % (47-70); Platelet Count 302 K/mm3 (150-450); RBC Distribution Width CV 13.2 % (11.6-14.6); RBC Distribution Width SD 48.7 fl (35.1-43.9); Red Blood Count 3.65 M/mm3 (4.2-5.4)
[2023-10-23 12:46] LABS: AST(SGOT) 18 U/L (15-37); Alanine Aminotransfer ALT/SGPT 16 U/L (13-56); Albumin, Serum 3.4 g/dL (3.2-5.0); Alkaline Phosphatase 73 U/L (45-117); Anion Gap 6 (5-15); BUN 16 mg/dL (7-18); BUN/Creat Ratio 18.1 RATIO (10-20); Calcium,Total 9.1 mg/dL (8.5-10.1); Chloride 104 mmol/L (98-107); Creatinine, Serum 0.88 mg/dL (0.55-1.02); EST Glomerular Filtration Rate 65 mL/min (>60); Est Glom Filt Rate - Afr Amer 78 mL/min (>60); Globulin 3.3 g/dL (2.2-4.2); Glucose 98 mg/dL (74-106); Potassium 4.2 mmol/L (3.5-5.1); Protein, Total 6.7 g/dL (6.4-8.2); Sodium Level 139 mmol/L (136-145)
== END | disposition home or self-care (01) ==
LOC: MTLAB 10:30
PROVIDERS: Referring Provider Internal Medicine Rheumatology; Visit Provider Internal Medicine Rheumatology
DX: M06.00 Rheumatoid arthritis without rheumatoid factor, unspecified site (principal); Z79.899 Other long term (current) drug therapy; M17.0 Bilateral primary osteoarthritis of knee; M47.896 Other spondylosis, lumbar region
CPT/HCPCS: 36415; 80053; 85025

== ENCOUNTER → 2024-07-16 | Outpatient (CLI) | payer MEDICARE, BC, SELFPAY ==
[2024-07-16 12:33] LABS: Absolute Lymphocyte Count 2.41 X10^3/uL (0.83-4.51); Absolute Neutrophil Count 2.4 X10^3/uL (2.0-7.7); Basophil# 0.04 X10^3/uL; Basophil% 0.7 % (0-1); Eosinophil# 0.14 X10^3/uL; Eosinophils% 2.5 % (0-5); Hematocrit 38.3 % (37-47); Hemoglobin 12.4 g/dL (12.0-15.0); Lymphocyte # 2.41 X10^3/ul (0.83-4.51); Lymphocyte % 43.1 % (19-41); Mean Corp Hgb Conc 32.4 g/dL (32-36); Mean Corpuscular Hgb 32.6 pg (27.0-32.0); Mean Corpuscular Volume 100.8 fL (81-99); Mean Platelet Vol. 10.2 fl (6.2-12.0); Monocyte# 0.59 X10^3/uL; Monocyte% 10.6 % (0-10); NRBC Flagged by Analyzer 0 % (0-5); Neutrophil # 2.39 X10^3/uL (2.7-7.7); Neutrophil % 42.7 % (47-70); Platelet Count 308 K/mm3 (150-450); RBC Distribution Width SD 51.1 fl (35.1-43.9); White Blood Count 5.6 K/mm3 (4.4-11.0)
[2024-07-16 12:57] LABS: ALB/GLOB Ratio 1.6 RATIO (0.9-2.4); AST(SGOT) 25 U/L (<=31); Alanine Aminotransfer ALT/SGPT 20 U/L (<=34); Albumin, Serum 4.1 g/dL (3.4-4.8); Alkaline Phosphatase 72 U/L (35-104); Anion Gap 10 (5-15); BUN 18 mg/dL (4-19); BUN/Creat Ratio 22.3 RATIO (10-20); Calcium,Total 9.3 mg/dL (7.6-11.0); Carbon Dioxide 27.7 mmol/L (21.0-32.0); Chloride 101 mmol/L (98-108); Creatinine, Serum 0.82 mg/dL (0.70-1.20); EST Glomerular Filtration Rate 70 (>60); Globulin 2.6 g/dL (2.2-4.2); Glucose 103 mg/dL (70-99); Potassium 4.1 mmol/L (3.3-5.1); Protein, Total 6.7 g/dL (5.9-8.4); Sodium Level 138 mmol/L (133-145)
== END | disposition home or self-care (01) ==
LOC: MTLAB 10:10
PROVIDERS: Referring Provider Internal Medicine Rheumatology; Visit Provider Internal Medicine Rheumatology
DX: M06.00 Rheumatoid arthritis without rheumatoid factor, unspecified site (principal); Z79.899 Other long term (current) drug therapy
CPT/HCPCS: 36415; 80053; 85025

== ENCOUNTER 2024-08-28 08:50 | Outpatient (CLI) | payer MEDICARE, BC, SELFPAY ==
[2024-08-28 09:04] VITALS: BP 138/57; PULSE 72; RESP 14; TEMP 36.7; O2SAT 97; BMI 27.3
--- OUTSIDE RECORDS SUMMARY | 2024-08-28 09:39 | XMS RPT_ITS | CCD ---
Author Organization [facility] Care Team Providers Care Aeg[facility] Console Operator Track Name Role Phone León Marcano MD Primary Care Provider Lucretia Babcock MD Unavailable Town Doctor, Out of Primary Care Provider Unaangelito nichols [facility] Doctor, Out of Referring Provider Malachiab susie HERNANDEZ, DAVID Cornelius Attending Provider Dr. Kj Villa Attending Provider León Marcano MD Primary Care Provider Lucretia Babcock MD Unavailable Care Physician, No Primary Primary Care Provider Unavailable Dr. Marissa Amezcua MD Attending Provider Dr. Marissa Amezcua MD Referring Provider Marissa Amezcua Referring Unavailable Marissa Amezcua Attending Unavailable Care Physician, No Primary Primary Care Unava ilable Marissa Amezcua Referring Unavailable Care Physician, No Primary Primary Care Unava ilable Marissa Amezcua Attending Unavailable Marissa Amezcua Referring Unavailable Care Physician, No Primary Primary Care Unava ilable Marissa Amezcua Attending Unavailable Kj Villa Attending Unavailable Care Physician, No Primary Primary Care Unava ilable Goldie Marissa Referring Unavailable Marissa Amezcua Attending Unavailable Care Physician, No Primary Primary Care Unava ilable Goldie, Marissa Referring Unavailable Marissa Amezcua Attending Unavailable Care Physician, No Primary Primary Care Unava ilsusi Villa MD, Dr. Underwood Attending Provider Allergies Allergy Classification Reported Allergen(s) Allergy Type Date of Onset Reaction(s) Facility (8 sources) NITROFURANTOIN, MACROCRYSTALS / Nitrofurantoin, Monohydrate Drug Allergy 7 Shortness of Breath, Other: See Comments [facility] Medications Current Medications Medication Drug Class(es) Dates Sig (Normalized) Sig (Original) cholecalciferol 0.025 mg oral tablet (9 sources) Vitamin D Start: 11-04-2014 Cholecalciferol (Vitamin D3) (Vitamin D) 1,000 UNIT tablet Active 1000 U PO DAILY November 04, 2014 12:00am doxycycline monohydrate 100 mg oral tablet (2 sources) Tetracycline-cl ass Drug Start: 10-07-2021 End: 10-14-2021 take 1 tablet by mouth twice daily doxycycline monohydrate 100 mg tablet Take 1 tablet by mouth twice daily for 7 days. 14 tablet 0 10/07/2021 10/14/2021 Active Comment on above: Take 1 tablet by allison twice daily for 7 days. folic acid 1 mg oral tablet (9 sources) Start: 10-29-2019 take 2 tablets by mouth once daily Folic Acid 1 MG tablet Active 2 mg PO DAILY October 29, 2019 12:00am Start: 10-29-2019 take 2 mg by mouth once daily Folic Acid Active 2 MG PO DAILY October 29, 2019 12:00am 4 ml golimumab 12.5 mg/ml injection (15 sources) Tumor Necrosis Factor Ziggy Start: 08-25-2021 golimumab (SIMPONI A LANEY) infusion Inject intravenously. 08/25/2021 Active Start: 08-25-2021 Golimumab (Sim poni Aria) 12.5 mg/mL Solution Active 0 .ROUTE .COMPLEX August 25, 2021 12:00am mg intravenously every 8 weeks Comment on above: Inject intravenously . methotrexate 2.5 mg oral tablet (17 sources) Folate Analog Metabolic Inhibitor Start: 10-29-19 take 4 tablets by mouth every week Methotrexate Sodium 2.5 mg tablet Active 10 mg PO EVERY WEEK October 29, 2019 12:00am Start: 10-29-2019 take 10 mg by mouth every week Methotrexate Sodium Active 10 MG PO EVERY WEEK October 29, 2019 12:00am Comment on above: Take 10 mg by mouth one time only. traMADol hydrochloride 50 mg oral tablet (9 sources) Opioid Agonist Start: 09-03-2013 take 1 tablet by mouth every four hours as needed for pain Tramadol 50 MG tablet Active 50 mg PO EVERY 4 HOURS NEEDED as needed for Pain September 03, 2013 12:00am Completed/Discontinued Medications Medication Drug Class(es) Dates Sig (Normalized) Sig (Original) acetaminophen 500 mg oral tablet (1 source) Start: 10-07-2021 End: 10-07-2021 acetaminophen 1,000 mg tab(s) (TYLENOL) Start: 10-07-2021 End: 10-07-2021 acetaminophen 1,000 mg tab(s ) (TYLENOL) albuterol 0.83 mg/ml inhalation solution (1 source) beta2-Adrenergic Agonist Start: 10-07-2021 End: 10-07-2021 albuterol 2.5 mg /3 mL (0.083 %) 2.5 mg (PROVENTIL) Start: 10-07-2021 End: 10-07-2021 albuterol 2.5 mg /3 mL (0.08 3 %) 2.5 mg (PROVENTIL) benzonatate 100 mg oral capsule (5 sources) Non-narcotic Antitussive Start: 10-03-2021 End: 10-18-2021 take 1 capsule by mouth every eight hours as needed for cough benzonatate (TESSALON PERLE) 100 mg capsule Indications: Acute cough Take 1 capsule by mouth every 8 hours as needed for cough for up to 15 days. 30 capsule 10/03/2021 10/18/2021 Comment on above: Take 1 capsule by mouth every 8 hours as needed for cough for up to 15 days. inFLIXimab 100 mg injection (3 sources) Tumor Necrosis Factor Ziggy Start: 08-30-2016 End: 10-03-2021 inject 100 mg intravenously every three months inFLIXimab (REMICADE) 100 mg injection Inject 100 mg intravenously every 3 months. 1 Vial 1 08/30/2016 10/03/2021 Discontinued (Changing Therapy/Dosage Form) Comment on above: Inject 100 mg intravenously every 3 ashleigh hs. predniSONE 2.5 mg oral tablet (9 sources) Start: 09-03-2019 End: 09-13-2022 take 2 tablets by mouth once daily Prednisone 2.5 MG tablet Discontinued 5 mg PO DAILY September 03, 2019 12:00am September 13, 2022 8:36am Start: 09-03-2019 End: 09-13-2022 take 5 mg by mouth once daily Prednisone Discontinued 5 MG PO DAILY September 03, 2019 12:00am September 13, 2022 8:36am Problems Problem Classification Problem Date Documented Da te Episodic/Chronic Fever of unknown origin (1 source) Fever; Translations: [Fever, unspecified] Episodic Immunizations and screening for infectious disease (1 source) Suspected disease caused by 2019-nCoV; Translations: [Suspected COVID-19 virus infection] Episodic Other lower respiratory disease (10 sources) Cough; Translations: [Acute cough] Episodic Other lower respiratory disease (1 source) Cough; Translations: [Acute cough] 10-07-2021 Episodic Other upper respiratory infections (1 source) Sore throat symptom; Translations: [Acute pharyngitis, unspecified] Episodic Pneumonia (except that caused by tuberculosis or sexually transmitted disease) (9 sources) Bacterial pneumonia; Translations: [Unspecified bacterial pneumonia] Episodic 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 Imaging Services [address] [place] [address] Hips B/L min 2 views w/ Pelvis MR#: [id number] Acct: [id number] Name: DEANA GARCÍA Rep #: [id number] : 1940 F 83 From: Jose Elias Handy MD PCP: Care Physician,No Primary Status: DEP AMB Study: Hips B/L min 2 views w/ Pelvis Date of Exam: 0 07/22/24 Exam# [id number] Ordering Dr: Marissa Amezcua MD PROCEDURE: HIPS B/L MIN 2 VIEWS W/ PELVIS 07/22/2024 REASON FOR EXAM: PAIN TECHNIQUE: AP view of the pelvis and AP and lateral views of both hips were obtained. COMPARISON: None. FINDINGS: The bony pelvis is intact. The SI joints are unremarkable. There is degenerative disc disease L1-2 through L5-S1. 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 The soft tissues of the pelvis are unremarkable. AP and lateral views of the right hip demonstrate no evidence of fracture or dislocation. There is mild arthritis with asymmetric joint space narrowing and marginal osteophyte formation. The periarticular soft tissues are normal. AP and lateral views of the left hip demonstrate no evidence of fracture or dislocation. There is mild arthritis with asymmetric joint space narrowing and marginal osteophyte formation. The periarticular soft tissues are normal. RAD/Hips B/L min 2 views w/ Pelvis IMPRESSION: Arthritis of both hips as described. Other findings as noted. Reading Location: [id number] CC: Dr. Marissa Amezcua MD; No Primary Care Physician Deputy Administrator: Signed Normal [facility] Absolute lymphocyte countOrd ered By: Marissa Amezcua on 07-16-2024 Lymphocytes Auto (Unsp spec) [#/Vol] 2.41 10*3/uL 0.83-4.51 [facility] Absolute neutrophil countOrd ered By: [facility] Goldie on 07-16-2024 Neutrophils (Bld) [#/Vol] 2.4 10*3/uL 2.0-7.7 [facility] Anion gap in Serum or Plasma Ordered By: Marissa Amezcua on 07-16-2024 Anion gap [Moles/Vol] 10 mmol/L 5-15 [facility] Automated lymphocyte count a s percentage of total leukocytesOrdered By: Marissa Amzecua on 07-16-2024 Lymphocytes/100 WBC Auto (Unsp spec) 43.1 % High 19-41 [facility] BUN/creatinine ratioOrdered By: Marissafredy Amezcua on 07-16-2024 Urea nitrogen/Creatinine [Mass ratio] 22.3 mg/mg High 10-20 [facility] Basophil percentageOrdered B y: Marissa Amezcua on 07-16-2024 Basophils/100 WBC (Bld) 0.7 % 0-1 [facility] Bilirubin, totalOrdered By: Marissa Amezcua on 07-16-2024 Bilirubin [Mass/Vol] 0.50 mg/dL 0.00-1.[address] [facility] CBC W/Diff, Automatedon 05-2 Absolute Lymph 2.41 X10 3/uL Normal 0.83-4.51 [facility] Comment on above: Performed By: #### L 500.4050, L100.0100 #### [facility] [address] [place], [address] Absolute Neut 2.4 X10 3/uL Normal 2.0-7.7 [facility] Comment on above: Performed By: #### L 500.4050, L100.0100 #### [facility] [address] [place], [address] Basophils/100 WBC (Bld) 0.7 % Normal 0-1 [facility] Comment on above: Performed By: #### L 500.4050, L100.0100 #### [facility] [address] [place], [address] Eosinophils/100 WBC (Bld) 2.5 % Normal 0-5 [facility] Comment on above: Performed By: #### L 500.4050, L100.0100 #### [facility] [address] [place], [address] Erythrocyte distribution width (RBC) [Ratio] 14.0 % Normal 11.6-14.6 [facility] Comment on above: Performed By: #### L 500.4050, L100.0100 #### [facility] [address] [place], [address] Hematocrit (Bld) [Volume fraction] 38.3 % Normal 37-47 [facility] Comment on above: Performed By: #### L 500.4050, L100.0100 #### [facility] [address] [place], [address] Hemoglobin (Bld) [Mass/Vol] 12.4 g/dL Normal 12.0-15.0 [facility] Comment on above: Performed By: #### L 500.4050, L100.0100 #### [facility] [address] [place], [address] IG% 0.400 Normal 0.0-0.9 [facility] Comment on above: Result Comment: IG% - Immature Granulocytes (promyelocytes, myelocytes and metamyelocytes) > 1% indicates that a LEFT SHIFT is Present. Performed By: #### L 500.4050, L100.0100 #### [facility] [address] [place], [address] Lymphocytes/100 WBC (Bld) 43.1 % High 19-41 [facility] Comment on above: Performed By: #### L 500.4050, L100.0100 #### [facility] [address] [place], [address] MCH (RBC) [Entitic mass] 32.6 pg High 27.0-32.0 [facility] Comment on above: Performed By: #### L 500.4050, L100.0100 #### [facility] [address] [place], [address] MCHC (RBC) [Mass/Vol] 32.4 g/dL Normal 32-36 [facility] Comment on above: Performed By: #### L 500.4050, L100.0100 #### [facility] [address] [place], [address] MCV (RBC) [Entitic vol] 100.8 fL High 81-99 [facility] Comment on above: Performed By: #### L 500.4050, L100.0100 #### [facility] [address] [place], [address] Monocytes/100 WBC (Bld) 10.6 % High 0-10 [facility] Comment on above: Performed By: #### L 500.4050, L100.0100 #### [facility] [address] [place], [address] Neutrophils/100 WBC (Bld) 42.7 % Low 47-70 [facility] Comment on above: Performed By: #### L 500.4050, L100.0100 #### [facility] [address] [place], [address] Nucleated RBC (Bld) [#/Vol] 0 10*3/uL Normal 0-5 [facility] Comment on above: Performed By: #### L 500.4050, L100.0100 #### [facility] [address] [place], [address] Platelet mean volume (Bld) [Entitic vol] 10.2 fL Normal 6.2-12.0 [facility] Comment on above: Performed By: #### L 500.4050, L100.0100 #### [facility] [address] [place], [address] Platelets (Bld) [#/Vol] 308 10*3/uL Normal 150-450 [facility] Comment on above: Performed By: #### L 500.4050, L100.0100 #### [facility] [address] [place], [address] RBC (Bld) [#/Vol] 3.80 10*6/uL Low 4.2-5.4 [facility] Comment on above: Performed By: #### L 500.4050, L100.0100 #### [facility] [address] [place], [address] RDW SD 51.1 fl High 35.1-43.9 [facility] Comment on above: Performed By: #### L 500.4050, L100.0100 #### [facility] [address] [place], [address] WBC (Bld) [#/Vol] 5.6 10*3/uL Normal 4.4-11.0 [facility] Comment on above: Performed By: #### L 500.4050, L100.0100 #### [facility] [address] [place], [address] Carbon dioxide, total [Moles /volume] in Central venous bloodOrdered By: Marissa Amezcua on 07-16-2024 CO2 [Moles/Vol] 27.7 mmol/L 21.0-32.0 [facility] Chloride assayOrdered By: David Amezcua on 07-16-2024 Chloride [Moles/Vol] 101 mmol/L 98-[address] [facility] Comprehensive Metabolic Prof ilon 07-16-2024 Albumin [Mass/Vol] 4.1 g/dL Normal 3.4-4.8 [facility] Comment on above: Performed By: #### L 500.4050, L100.0100 #### [facility] [address] [place], [address] Albumin/Globulin [Mass ratio] 1.6 {ratio} Normal 0.9-2.4 [facility] Comment on above: Performed By: #### L 500.4050, L100.0100 #### [facility] [address] [place], [address] ALK PHOS 72 U/L Normal 35-104 [facility] Comment on above: Performed By: #### L 500.4050, L100.0100 #### [facility] [address] [place], [address] ALT [Catalytic activity/Vol] 20 U/L Normal <=34 [facility] Comment on above: Performed By: #### L 500.4050, L100.0100 #### [facility] [address] [place], [address] AST [Catalytic activity/Vol] 25 U/L Normal <=31 [facility] Comment on above: Performed By: #### L 500.4050, L100.0100 #### [facility] [address] [place], [address] Bilirubin [Mass/Vol] 0.50 mg/dL Normal 0.00-1.[address] [facility] Comment on above: Performed By: #### L 500.4050, L100.0100 #### [facility] [address] [place], [address] BUN/CRE 22.3 RATIO High 10-20 [facility] Comment on above: Performed By: #### L 500.4050, L100.0100 #### [facility] [address] [place], [address] Calcium [Mass/Vol] 9.3 mg/dL Normal 7.6-11.0 [facility] Comment on above: Performed By: #### L 500.4050, L100.0100 #### [facility] [address] [place], [address] Chloride [Moles/Vol] 101 mmol/L Normal 98-[address] [facility] Comment on above: Performed By: #### L 500.4050, L100.0100 #### [facility] [address] [place], [address] CO2 [Moles/Vol] 27.7 mmol/L Normal 21.0-32.0 [facility] Comment on above: Performed By: #### L 500.4050, L100.0100 #### [facility] [address] [place], [address] Creatinine [Mass/Vol] 0.82 mg/dL Normal 0.70-1.20 [facility] Comment on above: Performed By: #### L 500.4050, L100.0100 #### [facility] [address] [place], [address] GAP 10 Normal 5-15 [facility] Comment on above: Performed By: #### L 500.4050, L100.0100 #### [facility] [address] [place], [address] GFR/1.73 sq M.predicted among non-blacks MDRD (S/P/Bld) [Vol rate/Area] 70 mL/min/{1.73_m2} Normal >60 [facility] Comment on above: Result Comment: mL/m in/1.73m2 CKD-EPI Creatinine Equation (2020) Performed By: #### L 500.4050, L100.0100 #### [facility] [address] [place], [address] Globulin (S) [Mass/Vol] 2.6 g/dL Normal 2.2-4.2 [facility] Comment on above: Performed By: #### L 500.4050, L100.0100 #### [facility] [address] [place], [address] Glucose [Mass/Vol] 103 mg/dL High 70-99 [facility] Comment on above: Performed By: #### L 500.4050, L100.0100 #### [facility] [address] [place], [address] Potassium [Moles/Vol] 4.1 mmol/L Normal 3.3-5.1 [facility] Comment on above: Performed By: #### L 500.4050, L100.0100 #### [facility] [address] [place], [address] Sodium [Moles/Vol] 138 mmol/L Normal 133-145 [facility] Comment on above: Performed By: #### L 500.4050, L100.0100 #### [facility] [address] [place], [address] T PROT 6.7 g/dL Normal 5.9-8.4 [facility] Comment on above: Performed By: #### L 500.4050, L100.0100 #### [facility] [address] [place], [place], [address] Urea nitrogen [Mass/Vol] 18 mg/dL Normal 4-19 [facility] Comment on above: Performed By: #### L 500.4050, L100.0100 #### [facility] [address] [place], [place], [address] Eosinophil percentageOrdered By: Marissa Amezcua on 07-16-2024 Eosinophils/100 WBC (Bld) 2.5 % 0-5 [facility] Erythrocyte distribution wid th ratioOrdered By: Marissa Amezcua on 07-16-2024 Erythrocyte distribution width (RBC) [Ratio] 14.0 % 11.6-14.6 [facility] Erythrocyte distribution wid th standard deviationOrdered By: Marissa Amezcua on 07-16-2024 Erythrocyte distribution width (RBC) [Ratio] 51.1 fl High 35.1-43.9 [facility] Glomerular filtration rate ( GFR) estimation/1.73 sq m using serum, plasma, or whole bOrdered By: Marissa Amezcua on 07-16-2024 GFR/1.73 sq M.predicted among non-blacks MDRD (S/P/Bld) [Vol rate/Area] 70 mL/min/{1.73_m2} >60 [facility] Comment on above: mL/min/1.73m2 CKD-EP I Creatinine Equation (2020) Hematocrit Auto (Bld) [Volum e fraction]Ordered By: Marissa Amezcua on 07-16-2024 Hematocrit (Bld) [Volume fraction] 38.3 % 37-47 [facility] Hemoglobin measurementOrdere d By: Marissa Amezcua on 07-16-2024 Hemoglobin (Bld) [Mass/Vol] 12.4 g/dL 12.0-15.0 [facility] Immature granulocytes/100 WB C Auto (Bld)Ordered By: Marissa Amezcua on 07-16-2024 Immature granulocytes/100 WBC (Bld) 0.400 % 0.0-0.9 [facility] Comment on above: IG% - Immature Granu locytes (promyelocytes, myelocytes and metamyelocytes) > 1% indicates that a LEFT SHIFT is Present. Laboratory - Chemistry and C hemistry - challengeOrdered By: Marissa Amezcua on 07-16-2024 AST [Catalytic activity/Vol] 25 U/L <32 [facility] MCV (mean corpuscular volume ) determinationOrdered By: Marissa Amezcua on 07-16-2024 MCV (RBC) [Entitic vol] 100.8 fL High 81-99 [facility] Mean corpuscular hemoglobin (MCH) determinationOrdered By: Marissa Amezcua on 07-16-2024 MCH (RBC) [Entitic mass] 32.6 pg High 27.0-32.0 [facility] Mean corpuscular hemoglobin concentration (MCHC) determinationOrdered By: Marissa Amezcua on 07-16-2024 MCHC (RBC) [Mass/Vol] 32.4 g/dL 32-36 [facility] Mean platelet volume determi nationOrdered By: Marissa Amezcua on 07-16-2024 Platelet mean volume (Bld) [Entitic vol] 10.2 fL 6.2-12.0 [facility] Monocyte percentageOrdered B y: Marissa Amezcua on 07-16-2024 Monocytes/100 WBC (Bld) 10.6 % High 0-10 [facility] Neutrophil percentageOrdered By: Marissa Amezcua on 07-16-2024 Neutrophils/100 WBC (Bld) 42.7 % Low 47-70 [facility] Nucleated red blood cell per centageOrdered By: Marissa Amezcua on 07-16-2024 Nucleated RBC/100 WBC (Bld) [Ratio] 0 % 0-5 [facility] Platelet countOrdered By: David Amezcua on 07-16-2024 Platelets (Bld) [#/Vol] 308 10*3/uL 150-450 [facility] Potassium measurement (mass/ volume)Ordered By: Marissa Amezcua on 07-16-2024 Potassium (Unsp spec) [Mass/Vol] 4.1 mmol/L 3.3-5.1 [facility] RBC Auto (Bld) [#/Vol]Ordere d By: Marissa Amezcua on 07-16-2024 RBC (Bld) [#/Vol] 3.80 10*6/uL Low 4.2-5.4 [facility] Serum creatinine measurement (mass/volume)Ordered By: Marissa Amezcua on 07-16-2024 Creatinine [Mass/Vol] 0.82 mg/dL 0.70-1.20 [facility] Serum globulin measurementOr dered By: Marissa Amezcua on 07-16-2024 Globulin (S) [Mass/Vol] 2.6 g/dL 2.2-4.2 [facility] Serum glucose measurement (m ass/volume)Ordered By: Marisas Amezcua on 07-16-2024 Glucose [Mass/Vol] 103 mg/dL High 70-99 [facility] Serum or plasma alanine stoddard otransferase (ALT) measurementOrdered By: Marissa Amezcua on 07-16-2024 ALT [Catalytic activity/Vol] 20 U/L <35 [facility] Serum or plasma albumin bentley urement (mass/volume)Ordered By: Marissa Amezcua on 07-16-2024 Albumin [Mass/Vol] 4.1 g/dL 3.4-4.8 [facility] Serum or plasma albumin/glob ulin mass ratioOrdered By: Marissa Amezcua on 07-16-2024 Albumin/Globulin [Mass ratio] 1.6 {ratio} 0.9-2.4 [facility] Serum or plasma alkaline raven sphatase measurementOrdered By: Marissa Amezcua on 07-16-2024 ALP [Catalytic activity/Vol] 72 U/L 35-104 [facility] Serum or plasma calcium bentley urement (mass/volume)Ordered By: Marissa Amezcua on 07-16-2024 Calcium [Mass/Vol] 9.3 mg/dL 7.6-11.0 [facility] Serum or plasma urea nitroge n measurement (mass/volume)Ordered By: Marissa Amezcua on 07-16-2024 Urea nitrogen [Mass/Vol] 18 mg/dL 4-19 [facility] Sodium levelOrdered By: Huang Amezcua on 07-16-2024 Sodium [Moles/Vol] 138 mmol/L 133-145 [facility] Total proteinOrdered By: Renetta Amezcua on 07-16-2024 Protein [Mass/Vol] 6.7 g/dL 5.9-8.4 [facility] White blood cell (WBC) count Ordered By: Marissa Amezcua on 07-16-2024 WBC (Bld) [#/Vol] 5.6 10*3/uL 4.4-11.0 [facility] CBC W/Diff, Automatedon 09-0 Absolute Lymph 2.30 X10 3/uL Normal 0.83-4.51 [facility] Comment on above: Performed By: #### L 100.0100, L500.4050 #### [facility] [address] [place], [address] Absolute Neut 2.8 X10 3/uL Normal 2.0-7.7 [facility] Comment on above: Performed By: #### L 100.0100, L500.4050 #### [facility] [address] [place], [address] Basophils/100 WBC (Bld) 0.7 % Normal 0-1 [facility] Comment on above: Performed By: #### L 100.0100, L500.4050 #### [facility] [address] [place], [address] Eosinophils/100 WBC (Bld) 2.3 % Normal 0-5 [facility] Comment on above: Performed By: #### L 100.0100, L500.4050 #### [facility] [address] [place], [address] Erythrocyte distribution width (RBC) [Ratio] 13.2 % Normal 11.6-14.6 [facility] Comment on above: Performed By: #### L 100.0100, L500.4050 #### [facility] [address] [place], [address] Hematocrit (Bld) [Volume fraction] 36.8 % Low 37-47 [facility] Comment on above: Performed By: #### L 100.0100, L500.4050 #### [facility] [address] [place], [address] Hemoglobin (Bld) [Mass/Vol] 11.8 g/dL Low 12.0-15.0 [facility] Comment on above: Performed By: #### L 100.0100, L500.4050 #### [facility] [address] [place], [address] IG% 0.300 Normal 0.0-0.9 [facility] Comment on above: Result Comment: IG% - Immature Granulocytes (promyelocytes, myelocytes and metamyelocytes) > 1% indicates that a LEFT SHIFT is Present. Performed By: #### L 100.0100, L500.4050 #### [facility] [address] [place], [address] Lymphocytes/100 WBC (Bld) 38.4 % Normal 19-41 [facility] Comment on above: Performed By: #### L 100.0100, L500.4050 #### [facility] [address] [place], [address] MCH (RBC) [Entitic mass] 32.3 pg High 27.0-32.0 [facility] Comment on above: Performed By: #### L 100.0100, L500.4050 #### [facility] [address] [place], [address] MCHC (RBC) [Mass/Vol] 32.1 g/dL Normal 32-36 [facility] Comment on above: Performed By: #### L 100.0100, L500.4050 #### [facility] [address] [place], [address] MCV (RBC) [Entitic vol] 100.8 fL High 81-99 [facility] Comment on above: Performed By: #### L 100.0100, L500.4050 #### [facility] [address] [place], [address] Monocytes/100 WBC (Bld) 12.4 % High 0-10 [facility] Comment on above: Performed By: #### L 100.0100, L500.4050 #### [facility] [address] [place], [address] Neutrophils/100 WBC (Bld) 45.9 % Low 47-70 [facility] Comment on above: Performed By: #### L 100.0100, L500.4050 #### [facility] [address] [place], [address] Nucleated RBC (Bld) [#/Vol] 0 10*3/uL Normal 0-5 [facility] Comment on above: Performed By: #### L 100.0100, L500.4050 #### [facility] [address] [place], [address] Platelet mean volume (Bld) [Entitic vol] 10.3 fL Normal 6.2-12.0 [facility] Comment on above: Performed By: #### L 100.0100, L500.4050 #### [facility] [address] [place], [address] Platelets (Bld) [#/Vol] 302 10*3/uL Normal 150-450 [facility] Comment on above: Performed By: #### L 100.0100, L500.4050 #### [facility] [address] [place], [address] RBC (Bld) [#/Vol] 3.65 10*6/uL Low 4.2-5.4 [facility] Comment on above: Performed By: #### L 100.0100, L500.4050 #### [facility] [address] [place], [address] RDW SD 48.7 fl High 35.1-43.9 [facility] Comment on above: Performed By: #### L 100.0100, L500.4050 #### [facility] [address] [place], [address] WBC (Bld) [#/Vol] 6.0 10*3/uL Normal 4.4-11.0 [facility] Comment on above: Performed By: #### L 100.0100, L500.4050 #### [facility] [address] [place], [address] Comprehensive Metabolic Prof ilon 10-23-2023 Albumin [Mass/Vol] 3.4 g/dL Normal 3.2-5.0 [facility] Comment on above: Performed By: #### L 100.0100, L500.4050 #### [facility] [address] [place], [address] Albumin/Globulin [Mass ratio] 1.0 {ratio} Normal 0.9-2.4 [facility] Comment on above: Performed By: #### L 100.0100, L500.4050 #### [facility] [address] [place], [address] ALK P 73 U/L Normal 45-117 [facility] Comment on above: Performed By: #### L 100.0100, L500.4050 #### [facility] [address] [place], [address] ALT [Catalytic activity/Vol] 16 U/L Normal 13-56 [facility] Comment on above: Performed By: #### L 100.0100, L500.4050 #### [facility] [address] [place], [address] AST [Catalytic activity/Vol] 18 U/L Normal 15-37 [facility] Comment on above: Performed By: #### L 100.0100, L500.4050 #### [facility] [address] [place], [address] Bilirubin [Mass/Vol] 0.50 mg/dL Normal 0.20-1.[address] [facility] Comment on above: Result Comment: For patients on eltrombopag therapy, use of Dimension [place] TBIL is not recommended. Performed By: #### L 100.0100, L500.4050 #### [facility] [address] [place], [address] BUN/CRE 18.1 RATIO Normal 10-20 [facility] Comment on above: Performed By: #### L 100.0100, L500.4050 #### [facility] [address] [place], [address] CA,Total 9.1 mg/dL Normal 8.5-10.1 [facility] Comment on above: Performed By: #### L 100.0100, L500.4050 #### [facility] [address] [place], [address] Chloride [Moles/Vol] 104 mmol/L Normal 98-[address] [facility] Comment on above: Performed By: #### L 100.0100, L500.4050 #### [facility] [address] [place], [address] CO2 [Moles/Vol] 29.0 mmol/L Normal 21.0-32.0 [facility] Comment on above: Performed By: #### L 100.0100, L500.4050 #### [facility] [address] [place], [address] Creatinine [Mass/Vol] 0.88 mg/dL Normal 0.55-1.02 [facility] Comment on above: Result Comment: The validity of the calculated GFR GFRAA in patients over 70 years has not been determined. Clinical correlation is essential. Performed By: #### L 100.0100, L500.4050 #### [facility] [address] [place], [address] EST GFR - AA 78 mL/min Normal >60 [facility] Comment on above: Result Comment: Afri can Martiniquais GFR Calc Performed By: #### L 100.0100, L500.4050 #### [facility] [address] [place], [address] GAP 6 Normal 5-15 [facility] Comment on above: Performed By: #### L 100.0100, L500.4050 #### [facility] [address] [place], [address] GFR/1.73 sq M.predicted among non-blacks MDRD (S/P/Bld) [Vol rate/Area] 65 mL/min/{1.73_m2} Normal >60 [facility] Comment on above: Result Comment: Non- GFR Calc Performed By: #### L 100.0100, L500.4050 #### [facility] [address] [place], [address] Globulin (S) [Mass/Vol] 3.3 g/dL Normal 2.2-4.2 [facility] Comment on above: Performed By: #### L 100.0100, L500.4050 #### [facility] [address] [place], [address] Glucose [Mass/Vol] 98 mg/dL Normal 74-106 [facility] Comment on above: Performed By: #### L 100.0100, L500.4050 #### [facility] [address] [place], [address] Potassium [Moles/Vol] 4.2 mmol/L Normal 3.5-5.1 [facility] Comment on above: Performed By: #### L 100.0100, L500.4050 #### [facility] [address] [place], [address] Sodium [Moles/Vol] 139 mmol/L Normal 136-145 [facility] Comment on above: Performed By: #### L 100.0100, L500.4050 #### [facility] [address] [place], [address] T PROT 6.7 g/dL Normal 6.4-8.2 [facility] Comment on above: Performed By: #### L 100.0100, L500.4050 #### [facility] [address] [place], [address] Urea nitrogen [Mass/Vol] 16 mg/dL Normal 7-18 [facility] Comment on above: Performed By: #### L 100.0100, L500.4050 #### [facility] [address] [place], [address] CBC W/Diff, Automatedon 06-0 5-2024 Absolute Lymph 2.06 X10 3/uL Normal 0.83-4.51 [facility] Comment on above: Performed By: #### L 500.4050, L100.0100 #### [facility] [address] [place], [address] Absolute Neut 1.7 X10 3/uL Low 2.0-7.7 [facility] Comment on above: Performed By: #### L 500.4050, L100.0100 #### [facility] [address] [place], [address] Basophils/100 WBC (Bld) 0.8 % Normal 0-1 [facility] Comment on above: Performed By: #### L 500.4050, L100.0100 #### [facility] [address] [place], [address] Eosinophils/100 WBC (Bld) 5.0 % Normal 0-5 [facility] Comment on above: Performed By: #### L 500.4050, L100.0100 #### [facility] [address] [place], [address] Erythrocyte distribution width (RBC) [Ratio] 13.1 % Normal 11.6-14.6 [facility] Comment on above: Performed By: #### L 500.4050, L100.0100 #### [facility] [address] [place], [address] Hematocrit (Bld) [Volume fraction] 38.5 % Normal 37-47 [facility] Comment on above: Performed By: #### L 500.4050, L100.0100 #### [facility] [address] [place], [address] Hemoglobin (Bld) [Mass/Vol] 12.4 g/dL Normal 12.0-15.0 [facility] Comment on above: Performed By: #### L 500.4050, L100.0100 #### [facility] [address] [place], [address] IG% 0.200 Normal 0.0-0.9 [facility] Comment on above: Result Comment: IG% - Immature Granulocytes (promyelocytes, myelocytes and metamyelocytes) > 1% indicates that a LEFT SHIFT is Present. Performed By: #### L 500.4050, L100.0100 #### [facility] [address] [place], [address] Lymphocytes/100 WBC (Bld) 42.7 % High 19-41 [facility] Comment on above: Performed By: #### L 500.4050, L100.0100 #### [facility] [address] [place], [address] MCH (RBC) [Entitic mass] 32.8 pg High 27.0-32.0 [facility] Comment on above: Performed By: #### L 500.4050, L100.0100 #### [facility] [address] [place], [address] MCHC (RBC) [Mass/Vol] 32.2 g/dL Normal 32-36 [facility] Comment on above: Performed By: #### L 500.4050, L100.0100 #### [facility] [address] [place], [address] MCV (RBC) [Entitic vol] 101.9 fL High 81-99 [facility] Comment on above: Performed By: #### L 500.4050, L100.0100 #### [facility] [address] [place], [address] Monocytes/100 WBC (Bld) 16.8 % High 0-10 [facility] Comment on above: Performed By: #### L 500.4050, L100.0100 #### [facility] [address] [place], [address] Neutrophils/100 WBC (Bld) 34.5 % Low 47-70 [facility] Comment on above: Performed By: #### L 500.4050, L100.0100 #### [facility] [address] [place], [address] Nucleated RBC (Bld) [#/Vol] 0 10*3/uL Normal 0-5 [facility] Comment on above: Performed By: #### L 500.4050, L100.0100 #### [facility] [address] [place], [address] Platelet mean volume (Bld) [Entitic vol] 10.3 fL Normal 6.2-12.0 [facility] Comment on above: Performed By: #### L 500.4050, L100.0100 #### [facility] [address] [place], [address] Platelets (Bld) [#/Vol] 287 10*3/uL Normal 150-450 [facility] Comment on above: Performed By: #### L 500.4050, L100.0100 #### [facility] [address] [place], [address] RBC (Bld) [#/Vol] 3.78 10*6/uL Low 4.2-5.4 [facility] Comment on above: Performed By: #### L 500.4050, L100.0100 #### [facility] [address] [place], [address] RDW SD 48.8 fl High 35.1-43.9 [facility] Comment on above: Performed By: #### L 500.4050, L100.0100 #### [facility] [address] [place], [address] WBC (Bld) [#/Vol] 4.8 10*3/uL Normal 4.4-11.0 [facility] Comment on above: Performed By: #### L 500.4050, L100.0100 #### [facility] [address] [place], [address] Comprehensive Metabolic Prof [facility] 07-25-2023 Albumin [Mass/Vol] 3.6 g/dL Normal 3.2-5.0 [facility] Comment on above: Performed By: #### L 500.4050, L100.0100 #### [facility] [address] [place], [address] Albumin/Globulin [Mass ratio] 1.0 {ratio} Normal 0.9-2.4 [facility] Comment on above: Performed By: #### L 500.4050, L100.0100 #### [facility] [address] [place], [address] ALK P 84 U/L Normal 45-117 [facility] Comment on above: Performed By: #### L 500.4050, L100.0100 #### [facility] [address] [place], [address] ALT [Catalytic activity/Vol] 18 U/L Normal 13-56 [facility] Comment on above: Performed By: #### L 500.4050, L100.0100 #### [facility] [address] [place], [address] AST [Catalytic activity/Vol] 19 U/L Normal 15-37 [facility] Comment on above: Performed By: #### L 500.4050, L100.0100 #### [facility] [address] [place], [address] Bilirubin [Mass/Vol] 0.70 mg/dL Normal 0.20-1.[address] [facility] Comment on above: Result Comment: For patients on eltrombopag therapy, use of Dimension [place] TBIL is not recommended. Performed By: #### L 500.4050, L100.0100 #### [facility] [address] [place], [address] BUN/CRE 14.7 RATIO Normal 10-20 [facility] Comment on above: Performed By: #### L 500.4050, L100.0100 #### [facility] [address] [place], [address] CA,Total 9.2 mg/dL Normal 8.5-10.1 [facility] Comment on above: Performed By: #### L 500.4050, L100.0100 #### [facility] [address] [place], [address] Chloride [Moles/Vol] 104 mmol/L Normal 98-[address] [facility] Comment on above: Performed By: #### L 500.4050, L100.0100 #### [facility] [address] [place], [address] CO2 [Moles/Vol] 27.0 mmol/L Normal 21.0-32.0 [facility] Comment on above: Performed By: #### L 500.4050, L100.0100 #### [facility] [address] [place], [address] Creatinine [Mass/Vol] 0.82 mg/dL Normal 0.55-1.02 [facility] Comment on above: Result Comment: The validity of the calculated GFR GFRAA in patients over 70 years has not been determined. Clinical correlation is essential. Performed By: #### L 500.4050, L100.0100 #### [facility] [address] [place], [address] EST GFR - AA 86 mL/min Normal >60 [facility] Comment on above: Result Comment: Afri can Martiniquais GFR Calc Performed By: #### L 500.4050, L100.0100 #### [facility] [address] [place], [address] GAP 7 Normal 5-15 [facility] Comment on above: Performed By: #### L 500.4050, L100.0100 #### [facility] [address] [place], [address] GFR/1.73 sq M.predicted among non-blacks MDRD (S/P/Bld) [Vol rate/Area] 71 mL/min/{1.73_m2} Normal >60 [facility] Comment on above: Result Comment: Non- GFR Calc Performed By: #### L 500.4050, L100.0100 #### [facility] [address] [place], [address] Globulin (S) [Mass/Vol] 3.5 g/dL Normal 2.2-4.2 [facility] Comment on above: Performed By: #### L 500.4050, L100.0100 #### [facility] [address] [place], [address] Glucose [Mass/Vol] 103 mg/dL Normal 74-106 [facility] Comment on above: Result Comment: Fast ing Glucose result from 100 to 125 mg/dL suggests IMPAIRED HOMEOSTASIS per A.D.A. criteria. Performed By: #### L 500.4050, L100.0100 #### [facility] [address] [place], [address] Potassium [Moles/Vol] 4.0 mmol/L Normal 3.5-5.1 [facility] Comment on above: Performed By: #### L 500.4050, L100.0100 #### [facility] [address] [place], [address] Sodium [Moles/Vol] 138 mmol/L Normal 136-145 [facility] Comment on above: Performed By: #### L 500.4050, L100.0100 #### [facility] [address] [place], [address] T PROT 7.1 g/dL Normal 6.4-8.2 [facility] Comment on above: Performed By: #### L 500.4050, L100.0100 #### [facility] [address] [place], [address] Urea nitrogen [Mass/Vol] 12 mg/dL Normal 7-18 [facility] Comment on above: Performed By: #### L 500.4050, L100.0100 #### [facility] [address] [place], [address] Absolute lymphocyte countOrd ered By: Marissa Amezcua on 10-16-2022 Lymphocytes Auto (Unsp spec) [#/Vol] 2.24 10*3/uL 0.83-4.51 [facility] Basophil percentageOrdered B y: Marissa Amezcua on 10-16-2022 Basophils/100 WBC (Bld) 0.9 % 0-1 [facility] Bilirubin [Mass/Vol] 0.50 mg/dL 0.20-1.[address] [facility] Comment on above: For patients on eltr ombopag therapy, use of Dimension [place] TBIL is not recommended. Chloride [Moles/Vol] 105 mmol/L 98-[address] [facility] Eosinophils/100 WBC (Bld) 2.5 % 0-5 [facility] Glucose [Mass/Vol] 69 mg/dL 74-106 [facility] Neutrophils (Bld) [#/Vol] 2.2 10*3/uL 2.0-7.7 [facility] Neutrophils/100 WBC (Bld) 41.2 % 47-70 [facility] Potassium [Moles/Vol] 4.1 mmol/L 3.5-5.1 [facility] Protein [Mass/Vol] 6.7 g/dL 6.4-8.2 [facility] Sodium [Moles/Vol] 138 mmol/L 136-145 [facility] WBC (Bld) [#/Vol] 5.3 10*3/uL 4.4-11.0 [facility] Blood erythrocytes count (nu mber/volume)Ordered By: Marissa Amezcua on 10-16-2022 RBC (Bld) [#/Vol] 3.88 10*6/uL 4.2-5.4 [facility] Blood hemoglobin measurement (mass/volume)Ordered By: Marissa Amezcua on 10-16-2022 Hemoglobin (Bld) [Mass/Vol] 12.4 g/dL 12.0-15.0 [facility] Blood lymphocytes/100 leukoc ytesOrdered By: Marissa Amezcua on 10-16-2022 Lymphocytes/100 WBC (Bld) 42.5 % 19-41 [facility] Blood monocytes/100 leukocyt esOrdered By: Marissa Amezcua on 10-16-2022 Monocytes/100 WBC (Bld) 12.7 % 0-10 [facility] Blood platelet mean volumeOr dered By: Marissa Amezcua on 10-16-2022 Platelet mean volume (Bld) [Entitic vol] 10.5 fL 6.2-12.0 [facility] Determination of erythrocyte mean corpuscular volume (MCV)Ordered By: Marissa Amezcua on 10-16-2022 MCV (RBC) [Entitic vol] 103.6 fL 81-99 [facility] Hematocrit Auto (Bld) [Volum e fraction]Ordered By: Marissafredy Amezcua on 10-16-2022 Hematocrit (Bld) [Volume fraction] 40.2 % 37-47 [facility] - Chemistry and C hemistry - challengeOrdered By: Marissa Amezcua on 10-16-2022 ALP [Catalytic activity/Vol] 77 U/L 45-117 [facility] ALT [Catalytic activity/Vol] 17 U/L 13-56 [facility] CO2 [Moles/Vol] 30.0 mmol/L 21.0-32.0 [facility] Globulin (S) [Mass/Vol] 3.4 g/dL 2.2-4.2 [facility] Urea nitrogen/Creatinine [Mass ratio] 22.4 mg/mg 10-20 [facility] - Hematology and Cell countsOrdered By: Marissafredy Amezcua on 10-16-2022 Erythrocyte distribution width (RBC) [Entitic vol] 48.2 fL 35.1-43.9 [facility] Erythrocyte distribution width (RBC) [Ratio] 12.7 % 11.6-14.6 [facility] Immature granulocytes/100 WBC (Bld) 0.200 % 0.0-0.9 [facility] Comment on above: IG% - Immature Granu locytes (promyelocytes, myelocytes and metamyelocytes) > 1% indicates that a LEFT SHIFT is Present. MCH (RBC) [Entitic mass] 32.0 pg 27.0-32.0 [facility] Nucleated RBC/100 WBC (Bld) [Ratio] 0 % 0-5 [facility] MCHC Auto (RBC) [Mass/Vol]Or dered By: Marissa Amezcua on 10-16-2022 MCHC (RBC) [Mass/Vol] 30.8 g/dL 32-36 [facility] No Panel InformationOrdered By: Marissafredy Amezcua on 10-16-2022 Estimated GFR (MDRD) Amer 87 mL/min >60 [facility] Comment on above: GFR Calc Estimated GFR (MDRD) Non-Af Amer 72 mL/min >60 [facility] Comment on above: Non- GFR Calc Platelets bldOrdered By: Renetta Amezcua on 10-16-2022 Platelets (Bld) [#/Vol] 282 10*3/uL 150-450 [facility] Serum or plasma albumin bentley urement (mass/volume)Ordered By: Marissa Amezcua on 10-16-2022 Albumin [Mass/Vol] 3.3 g/dL 3.2-5.0 [facility] Serum or plasma albumin/glob ulin mass ratioOrdered By: Marissa Amezcua on 10-16-2022 Albumin/Globulin [Mass ratio] 1.0 {ratio} 0.9-2.4 [facility] Serum or plasma calcium bentley urement (mass/volume)Ordered By: Marissa Amezcua on 10-16-2022 Calcium [Mass/Vol] 8.7 mg/dL 8.5-10.1 [facility] Serum or plasma creatinine m easurement (mass/volume)Ordered By: Marissa Amezcua on 10-16-2022 Creatinine [Mass/Vol] 0.80 mg/dL 0.55-1.02 [facility] Comment on above: The validity of the calculated GFR & GFRAA in patients over 70 years has not been determined. Clinical correlation is essential. Serum or plasma urea nitroge n measurement (mass/volume)Ordered By: Marissa Amezcua on 10-16-2022 Urea nitrogen [Mass/Vol] 18 mg/dL 7-18 [facility] Thin prep Papanicolaou smear with manual screeningOrdered By: Marissa Amezcua on 10-16-2022 Thin prep Papanicolaou smear with manual screening 17 U/L 15-37 [facility] Thin prep Papanicolaou smear with manual screening 3 5-15 [facility] Qualitative QuantiFERON-TB g old in tube testOrdered By: Dr. Amezcua on 07-21-2022 M. tuberculosis tuberculin stim IFN-g Ql (Bld) 0.15 IU/mL . [facility] Thin prep Papanicolaou smear with manual screeningOrdered By: Dr. Amezcua on 07-21-2022 Thin prep Papanicolaou smear with manual screening Comment . [facility] Comment on above: QuantiFERON-TB Gold Plus is a qualitative indirect test forM tuberculosis infection (including disease) and isintended for use in conjunction with risk assessment,radiography, and other medical and diagnostic evaluations.The QuantiFERON-TB Gold Plus result is determined bysubtracting the Nil value from either TB antigen (Ag)value. The Mitogen tube serves as a control for the test. Thin prep Papanicolaou smear with manual screening 0.14 IU/mL . [facility] Thin prep Papanicolaou smear with manual screening 0.30 IU/mL . [facility] Thin prep Papanicolaou smear with manual screening > 10.00 IU/mL . [facility] Thin prep Papanicolaou smear with manual screening Negative Negative [facility] Comment on above: No response to M tub erculosis antigens detected.Infection with M tuberculosis is unlikely, but high riskindividuals should be considered for additional testing(ATS/IDSA/CDC Clinical Practice Guidelines, 2017). Thereference range is an Antigen minus Nil result of <0.35IU/mL.The specimen received for QuantiFERON testing was incubatedby the ordering institution. Specific procedures outlinedin our Directory of Services and in the package insert forthe QuantiFERON Gold (In Tube) test must be followed toenable for proper stimulation of cells for the productionof interferon gamma. Chemiluminescence immunoassaymethodologyPerformed at: [facility] [id number] Director: Reagan Weiss PhD, Phone: [phone] Absolute lymphocyte countOrd ered By: Dr. Amezcua on 07-19-2022 Lymphocytes Auto (Unsp spec) [#/Vol] 1.96 10*3/uL 0.83-4.51 [facility] Basophil percentageOrdered B y: Dr. Amezcua on 07-19-2022 Basophils/100 WBC (Bld) 0.9 % 0-1 [facility] Bilirubin [Mass/Vol] 0.70 mg/dL 0.20-1.[address] [facility] Comment on above: For patients on eltr ombopag therapy, use of Dimension [place] TBIL is not recommended. Chloride [Moles/Vol] 106 mmol/L 98-[address] [facility] Eosinophils/100 WBC (Bld) 2.8 % 0-5 [facility] Glucose [Mass/Vol] 114 mg/dL 74-106 [facility] Comment on above: Fasting Glucose resu lt from 100 to 125 mg/dL suggests IMPAIRED HOMEOSTASIS per A.D.A. criteria. Neutrophils (Bld) [#/Vol] 1.7 10*3/uL 2.0-7.7 [facility] Neutrophils/100 WBC (Bld) 39.2 % 47-70 [facility] Potassium [Moles/Vol] 4.2 mmol/L 3.5-5.1 [facility] Protein [Mass/Vol] 6.8 g/dL 6.4-8.2 [facility] Sodium [Moles/Vol] 142 mmol/L 136-145 [facility] WBC (Bld) [#/Vol] 4.3 10*3/uL 4.4-11.0 [facility] Blood erythrocytes count (nu mber/volume)Ordered By: Dr. Amezcua on 07-19-2022 RBC (Bld) [#/Vol] 3.76 10*6/uL 4.2-5.4 [facility] Blood hemoglobin measurement (mass/volume)Ordered By: Dr. Amezcua on 07-19-2022 Hemoglobin (Bld) [Mass/Vol] 12.2 g/dL 12.0-15.0 [facility] Blood lymphocytes/100 leukoc ytesOrdered By: Dr. Amezcua on 07-19-2022 Lymphocytes/100 WBC (Bld) 45.7 % 19-41 [facility] Blood monocytes/100 leukocyt esOrdered By: Dr. mAezcua on 07-19-2022 Monocytes/100 WBC (Bld) 11.2 % 0-10 [facility] Blood platelet mean volumeOr dered By: Dr. Amezcua on 07-19-2022 Platelet mean volume (Bld) [Entitic vol] 10.2 fL 6.2-12.0 [facility] Determination of erythrocyte mean corpuscular volume (MCV)Ordered By: Dr. Amezcua on 07-19-2022 MCV (RBC) [Entitic vol] 102.1 fL 81-99 [facility] Hematocrit Auto (Bld) [Volum e fraction]Ordered By: Dr. Amezcua on 07-19-2022 Hematocrit (Bld) [Volume fraction] 38.4 % 37-47 [facility] Laboratory - Chemistry and C hemistry - challengeOrdered By: Dr. Amezcua on 07-19-2022 ALP [Catalytic activity/Vol] 76 U/L 45-117 [facility] ALT [Catalytic activity/Vol] 20 U/L 13-56 [facility] CO2 [Moles/Vol] 29.0 mmol/L 21.0-32.0 [facility] Globulin (S) [Mass/Vol] 3.2 g/dL 2.2-4.2 [facility] Urea nitrogen/Creatinine [Mass ratio] 19.2 mg/mg 10-20 [facility] Laboratory - Hematology and Cell countsOrdered By: Dr. Amezcua on 07-19-2022 Erythrocyte distribution width (RBC) [Entitic vol] 49.0 fL 35.1-43.9 [facility] Erythrocyte distribution width (RBC) [Ratio] 13.0 % 11.6-14.6 [facility] Immature granulocytes/100 WBC (Bld) 0.200 % 0.0-0.9 [facility] Comment on above: IG% - Immature Granu locytes (promyelocytes, myelocytes and metamyelocytes) > 1% indicates that a LEFT SHIFT is Present. MCH (RBC) [Entitic mass] 32.4 pg 27.0-32.0 [facility] Nucleated RBC/100 WBC (Bld) [Ratio] 0 % 0-5 [facility] MCHC Auto (RBC) [Mass/Vol]Or dered By: Dr. Amezcua on 07-19-2022 MCHC (RBC) [Mass/Vol] 31.8 g/dL 32-36 [facility] No Panel InformationOrdered By: Dr. Amezcua on 07-19-2022 Estimated GFR (MDRD) Amer 90 mL/min >60 [facility] Comment on above: GFR Calc Estimated GFR (MDRD) Non-Af Amer 75 mL/min >60 [facility] Comment on above: Non- GFR Calc Platelets bldOrdered By: Dr. Amezcua on 07-19-2022 Platelets (Bld) [#/Vol] 290 10*3/uL 150-450 [facility] Serum or plasma albumin bentley urement (mass/volume)Ordered By: Dr. Amezcua on 07-19-2022 Albumin [Mass/Vol] 3.6 g/dL 3.2-5.0 [facility] Serum or plasma albumin/glob ulin mass ratioOrdered By: Dr. Amezcua on 07-19-2022 Albumin/Globulin [Mass ratio] 1.1 {ratio} 0.9-2.4 [facility] Serum or plasma calcium bentley urement (mass/volume)Ordered By: Dr. Amezcua on 07-19-2022 Calcium [Mass/Vol] 9.2 mg/dL 8.5-10.1 [facility] Serum or plasma creatinine m easurement (mass/volume)Ordered By: Dr. Amezcua on 07-19-2022 Creatinine [Mass/Vol] 0.78 mg/dL 0.55-1.02 [facility] Comment on above: The validity of the calculated GFR & GFRAA in patients over 70 years has not been determined. Clinical correlation is essential. Serum or plasma urea nitroge n measurement (mass/volume)Ordered By: Dr. Amezcua on 07-19-2022 Urea nitrogen [Mass/Vol] 15 mg/dL 7-18 [facility] Thin prep Papanicolaou smear with manual screeningOrdered By: Dr. 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 Patient was treated with doxycycline for pneumonia. Patient reports feeling better. Still has slight cough. .Patient presents with: XRay Report: Needs chest xray to prove absence of pneumonia PAST MEDICAL HISTORY Diagnosis Date Female bladder prolapse 02/2011 Rheumatoid arthritis involving multiple sites with positive rheumatoid factor (HCC) 08/30/2016 PAST SURGICAL HISTORY Procedure Laterality Date HYSTERECTOMY HX N/A ALLERGIES Macrobid [Nitrofurantoin Monohyd/M-Cryst] MEDICATIONS golimumab (SIMPONI ARIA) infusion Inject intravenously. methotrexate 2.5 mg tablet Take 10 mg by mouth one time only. No family history on file. Social History Tobacco Use Smoking status: Never Smokeless tobacco: Never ROS Objective Blood pressure 130/68, pulse 86, temperature 36.8 ?C (98.3 ?F), resp. rate 21, weight 71.3 kg (157 lb 3.2 oz), SpO2 98 %. Physical Exam Constitutional: General: She is not in acute distress. Appearance: She is not toxic-appearing or diaphoretic. HENT: Head: Normocephalic and atraumatic. Cardiovascular: Rate and Rhythm: Normal rate and regular rhythm. Heart sounds: Normal heart sounds, S1 normal and S2 normal. Pulmonary: Effort: Pulmonary effort is normal. Breath sounds: Normal breath sounds. Neurological: Mental Status: She is alert and oriented to person, place, and time. Gait: Gait is intact. ASSESSMENT/PLAN: 1. Acute cough - ICD9: 786.2, ICD10: R05.1 Patient was to go [facility] and get xray as xray services [facility] in [facility]. I called patient after few hours, patient stated [facility]. - XR CHEST 2V FRONTAL/LAT Che Boyle APRN.ASSOCIATE MERCHANDISER Referring Provider: SELF [[id number]] Allergies As of Date: 10/20/2021 Noted Allergy Reaction MACROBID (NITROFURANTOIN MONOHYD/*09/07/2016 12 - Shortness of Breath 14 - Other: See Comments Comments: Symptoms of heart attack Date Reviewed: 10/20/2021 Reviewed by: Christen Pacheco MA - Fully Assessed Reason for Visit: XRay Report [1241] Cmt: Needs chest xray to prove absence of pneumonia Primary Visit Diagnosis:Acute cough [R05.1] Prescriptions as of 10/20/2021 - golimumab (SIMPONI ARIA) infusion Inject intravenously. - methotrexate 2.5 mg tablet Take 10 mg by mouth one time only. Problem List As Of Date 10/20/2021 Noted Resolved Rheumatoid arthritis involving multiple sites w*08/30/2016 Female bladder prolapse [N81.10] 02/19/2011 Encounter Status:Closed by CHE BOYLE on 10/20/21 Normal [facility] Absolute lymphocyte counton 10-13-2021 Lymphocytes Auto (Unsp spec) [#/Vol] 2.92 10*3/uL 0.83-4.51 [facility] Work Phone: Basophil percentageon 2021 Basophil percentage Not Reportable W [facility] Work Phone: Bilirubin [Mass/Vol] 0.30 mg/dL 0.20-1.[address] [facility] Work Phone: Comment on above: For patients on eltr ombopag therapy, use of Dimension [place] TBIL is not recommended. Chloride [Moles/Vol] 101 mmol/L 98-[address] [facility] Work Phone: Glucose [Mass/Vol] 140 mg/dL 74-106 [facility] Work Phone: Comment on above: Fasting Glucose resu lt greater than or equal to 126 mg/dL suggests DIABETES MELLITUS per A.D.A. criteria. Neutrophils (Bld) [#/Vol] 3.5 10*3/uL 2.0-7.7 [facility] Work Phone: [phone] Potassium [Moles/Vol] 4.0 mmol/L 3.5-5.1 [facility] Work Phone: [phone] Protein [Mass/Vol] 6.9 g/dL 6.4-8.2 [facility] Work Phone: Sodium [Moles/Vol] 138 mmol/L 136-145 [facility] Work Phone: WBC (Bld) [#/Vol] 7.5 10*3/uL 4.4-11.0 [facility] Work Phone: Blood band neutrophil count as percentage of total leukocyteson 10-13-2021 Band form neutrophils/100 WBC (Bld) 2 % 0-5 [facility] Work Phone: Blood erythrocytes count (nu mber/volume)on 10-13-2021 RBC (Bld) [#/Vol] 3.60 10*6/uL 4.2-5.4 [facility] Work Phone: Blood hemoglobin measurement (mass/volume)on 10-13-2021 Hemoglobin (Bld) [Mass/Vol] 11.6 g/dL 12.0-15.0 [facility] Work Phone: Blood lymphocytes/100 leukoc yteson 10-13-2021 Lymphocytes/100 WBC (Bld) 39 % 19-41 [facility] Work Phone: Blood metamyelocytes/100 edouard kocyteson 10-13-2021 Metamyelocytes/100 WBC (Bld) 1 % 0-1 [facility] Work Phone: Blood monocytes/100 leukocyt eson 10-13-2021 Monocytes/100 WBC (Bld) 8 % 0-10 [facility] Work Phone: Blood platelet adequacy dete ction by light microscopyon 10-13-2021 Platelets LM Ql (Bld) ADEQUATE ADEQ [facility] Work Phone: Blood platelet mean volumeon 10-13-2021 Platelet mean volume (Bld) [Entitic vol] 9.6 fL 6.2-12.0 [facility] Work Phone: Blood segmented neutrophils/ 100 leukocyteson 10-13-2021 Segmented neutrophils/100 WBC (Bld) 45 % 47-70 [facility] Work Phone: Determination of erythrocyte mean corpuscular volume (MCV)on 10-13-2021 MCV (RBC) [Entitic vol] 100.3 fL 81-99 [facility] Work Phone: Hematocrit Auto (Bld) [Volum e fraction]on 10-13-2021 Hematocrit (Bld) [Volume fraction] 36.1 % 37-47 [facility] Work Phone: Laboratory - Chemistry and C hemistry - challengeon 10-13-2021 ALP [Catalytic activity/Vol] 86 U/L 45-117 [facility] Work Phone: ALT [Catalytic activity/Vol] 48 U/L 13-56 [facility] Work Phone: CO2 [Moles/Vol] 31.0 mmol/L 21.0-32.0 [facility] Work Phone: Globulin (S) [Mass/Vol] 4.1 g/dL 2.2-4.2 [facility] Work Phone: Urea nitrogen/Creatinine [Mass ratio] 18.3 mg/mg 10-20 [facility] Work Phone: Laboratory - Hematology and Cell countson 10-13-2021 Erythrocyte distribution width (RBC) [Entitic vol] 49.4 fL 35.1-43.9 [facility] Work Phone: Erythrocyte distribution width (RBC) [Ratio] 13.4 % 11.6-14.6 [facility] Work Phone: MCH (RBC) [Entitic mass] 32.2 pg 27.0-32.0 [facility] Work Phone: Myelocytes/100 WBC (Bld) 5 % 0-0 [facility] Work Phone: MCHC Auto (RBC) [Mass/Vol]on 10-13-2021 MCHC (RBC) [Mass/Vol] 32.1 g/dL 32-36 [facility] Work Phone: No Panel Informationon 10-13 Estimated GFR (MDRD) Amer 86 mL/min >60 [facility] Work Phone: Comment on above: GFR Calc Estimated GFR (MDRD) Non-Af Amer 71 mL/min >60 [facility] Work Phone: Comment on above: Non- GFR Calc Platelets bldon 10-13-2021 Platelets (Bld) [#/Vol] 474 10*3/uL 150-450 [facility] Work Phone: RBC morphologyon 10-13-2021 RBC morphology finding Nom (Bld) NORM C+C NORMAL NORM C&C [facility] Work Phone: Review by pathologiston 09-20 Pathologist review Sameer (Unsp spec) [Interp] Reviewed [facility] Work Phone: Comment on above: Previous reported re sult: [place] patel Edited by: IAN on 10/14/21:1511Macrocytic anemia.Neutrophilic left shift.Thrombocytosis.Clinical correlation necessary.Joshua Driver M.D. 10/14/21 AMENDED REPORT 10/14/21 1511 PATH REV previously reported as: [place] patel Serum or plasma albumin bentley urement (mass/volume)on 10-13-2021 Albumin [Mass/Vol] 2.8 g/dL 3.2-5.0 [facility] Work Phone: Serum or plasma albumin/glob ulin mass ratioon 10-13-2021 Albumin/Globulin [Mass ratio] 0.7 {ratio} 0.9-2.4 [facility] Work Phone: Serum or plasma calcium bentley urement (mass/volume)on 10-13-2021 Calcium [Mass/Vol] 9.3 mg/dL 8.5-10.1 [facility] Work Phone: Serum or plasma creatinine m easurement (mass/volume)on 10-13-2021 Creatinine [Mass/Vol] 0.82 mg/dL 0.55-1.02 [facility] Work Phone: Comment on above: The validity of the calculated GFR & GFRAA in patients over 70 years has not been determined. Clinical correlation is essential. Serum or plasma urea nitroge n measurement (mass/volume)on 10-13-2021 Urea nitrogen [Mass/Vol] 15 mg/dL 7-18 [facility] Work Phone: Thin prep Papanicolaou smear with manual screeningon 10-13-2021 Thin prep Papanicolaou smear with manual screening 47 U/L 15-37 [facility] Work Phone: Thin prep Papanicolaou smear with manual screening 6 5-15 [facility] Work Phone: Total cell counton Cells counted Molgen (Bld/Tiss) [#] 100 MANUAL DIFF [facility] Work Phone: CNPNon 10-08-2021 CNPN Telephone (UCWSTR) DEANA ROMAN ([id number]) 1940 F Date Time Provider Department 10/08/21 SELENE MCGILL [facility] During your visit today, we recorded the following information about you: Karli Nixon 10/08/2021 9:10 AM Signed ----- Message from Selene Mcgill APRN.ASSOCIATE MERCHANDISER sent at 10/08/2021 8:06 AM EDT ----- Please advise patient of negative COVID and flu test. Karli Nixon 10/08/2021 9:10 AM Signed Patient given results and verbalized understanding of instructions given. Karli Nixon Allergies As of Date: 10/08/2021 Noted Allergy Reaction MACROBID (NITROFURANTOIN MONOHYD/*09/07/2016 12 - Shortness of Breath 14 - Other: See Comments Comments: Symptoms of heart attack Date Reviewed: 10/07/2021 Reviewed by: Christen Pacheco MA - Fully Assessed Reason for Visit: Results, Lab [1201] Prescriptions as of 10/08/2021 - doxycycline monohydrate 100 mg tablet Take 1 tablet by mouth twice daily for 7 days. - golimumab (SIMPONI ARIA) infusion Inject intravenously. - benzonatate (TESSALON PERLE) 100 mg capsule Take 1 capsule by mouth every 8 hours as needed for cough for up to 15 days. - methotrexate 2.5 mg tablet Take 10 mg by mouth one time only. Problem List As Of Date 10/08/2021 Noted Resolved Rheumatoid arthritis involving multiple sites w*08/30/2016 Female bladder prolapse [N81.10] 02/19/2011 Encounter Status:Closed by KARLI NIXON on 10/08/21 [facility] CNOVon 10-07-2021 CNOV Office Visit (UCWSTR ) DEANA ROMAN ([id number]) 1940 F Date Time Provider Department 10/07/21 11:15 AM ROCIO ZAMORA UCWSTR During your visit today, we recorded the following information about you: Temperature Pulse Respiration Blood pressure 103.5 degrees 125/minute 20/minute 148/62 Weight 69.4 kg Rocio Zamora APRN.ASSOCIATE MERCHANDISER 10/07/2021 1:42 PM Signed This note was created using LogicMonitorriter. Subjective Deana Roman is a 80 year old female. 80 year old female with PMH RA presents for illness. Acute onset of symptoms was around 09/30/21. +sore throat + cough Seen here on 10/03/21. Had negative COVID at that time (she does have history of having COVID in July/August of this year) Was prescribed Tessalon Perles Presents with worsening symptoms +fever + fatigue + achy +cough Denies hemoptysis. 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 No foreign language instructor was used. Cough This is a new problem. The current episode started more than 1 week ago. The problem occurs constantly. The problem has been gradually worsening. The cough is Non-productive. The maximum temperature recorded prior to her arrival was 102 to 102.9 F. Associated symptoms include chills, sweats, headaches, rhinorrhea, sore throat, myalgias, shortness of breath and wheezing. Pertinent negatives include no chest pain, no weight loss, no ear congestion, no ear pain and no eye redness. Treatments tried: Tessalon Perles. The treatment provided no relief. She is not a smoker. Her past medical history does not include bronchitis, pneumonia, bronchiectasis, COPD, emphysema or asthma. PAST MEDICAL HISTORY Diagnosis Date Female bladder prolapse 02/2011 Rheumatoid arthritis involving multiple sites with positive rheumatoid factor (HCC) 08/30/2016 PAST SURGICAL HISTORY Procedure Laterality Date HYSTERECTOMY HX N/A ALLERGIES Macrobid [Nitrofurantoin Monohyd/M-Cryst] MEDICATIONS golimumab (SIMPONI ARIA) infusionInject intravenously.Disp: Rfl: benzonatate (TESSALON PERLE) 100 mg capsuleTake 1 capsule by mouth every 8 hours as needed for cough for up to 15 days.Disp: 30 capsuleRfl: 0 methotrexate 2.5 mg tabletTake 10 mg by mouth one time only.Disp: Rfl: No family history on file. Social History Tobacco Use Smoking status: Never Smokeless tobacco: Never Review of Systems Constitutional: Positive for chills, fatigue and fever. Negative for activity change, appetite change, diaphoresis and weight loss. HENT: Positive for congestion, rhinorrhea, sinus pressure, sinus pain and sore throat. Negative for ear pain. Eyes: Negative for pain, discharge, redness and itching. Respiratory: Positive for cough, shortness of breath and wheezing. Negative for apnea, choking and chest tightness. Cardiovascular: Negative for chest pain, palpitations and leg swelling. Gastrointestinal: Negative for abdominal pain, diarrhea, nausea and vomiting. Musculoskeletal: Positive for myalgias. Negative for arthralgias and back pain. Skin: Negative for color change, pallor and rash. Allergic/Immunologic: Positive for immunocompromised state. Negative for environmental allergies and food allergies. Neurological: Positive for headaches. Negative for dizziness and facial asymmetry. Hematological: Negative for adenopathy. Does not bruise/bleed easily. Psychiatric/Behavioral: Negative for agitation and behavioral problems. Objective BP 148/62 Pulse (!) 125 Temp (!) 39.7 ?C (103.5 ?F) Resp 20 Wt 69.4 kg (153 lb) SpO2 90% With deep breaths and coughing patient noted to be 92 to 93 percent Physical Exam Vitals and nursing note reviewed. Constitutional: General: She is not in acute distress. Appearance: Normal appearance. She is normal weight. She is ill-appearing. She is not toxic-appearing or diaphoretic. HENT: Head: Normocephalic and atraumatic. Right Ear: Ear canal and external ear normal. Left Ear: Ear canal and external ear normal. Nose: Nose normal. No congestion or rhinorrhea. Mouth/Throat: Mouth: Mucous membranes are moist. Pharynx: No oropharyngeal exudate or posterior oropharyngeal erythema. Eyes: General: Right eye: No discharge. Left eye: No discharge. Extraocular Movements: Extraocular movements intact. Conjunctiva/sclera: Conjunctivae normal. Pupils: Pupils are equal, round, and reactive to light. Cardiovascular: Rate and Rhythm: Regular rhythm. Tachycardia present. Pulses: Normal pulses. Heart sounds: Normal heart sounds. No murmur heard. No friction rub. Pulmonary: Effort: Pulmonary effort is normal. No respiratory distress. Breath sounds: Normal breath sounds. No stridor. No wheezing, rhonchi or rales. Comments: Harsh deep cough with auscultation. Tightness noted. Chest: Chest wall: No tenderness. Abdominal: General: A (more content not included)... Normal [facility] Influenza virus A and B RNA and SARS-CoV-2 (COVID-19) N gene panel JEANMARIE+probe (Resp)on 10-07-2021 FLUAV RNA JEANMARIE+probe Ql (Unsp spec) Negative Normal Negative for Influenza A by RT-PCR [facility] Comment on above: Order Comment: Speci men Type: SWAB OF INTERNAL NOSEOrdering Facility: [facility] Address: [address] [place] [id number] Performed By: #### 9 5422-2 ####[facility] LABCLIA [id number] [place] [address] [place] FLUBV RNA JEANMARIE+probe Ql (Unsp spec) Negative Normal Negative for Influenza B by RT-PCR [facility] Comment on above: Order Comment: Speci men Type: SWAB OF INTERNAL NOSEOrdering Facility: [facility] Address: [address] [place] [address] Performed By: #### 9 5422-2 ####[facility] LABIA [id number] [place] [address] [place] SARS-CoV-2 (COVID-19) RNA JEANMARIE+probe Ql (Resp) SARS-CoV-2 (Agent of COVID-19) Not Detected by RT-PCR or equivalent method. Normal Not Detected [facility] Comment on above: Order Comment: Speci men Type: SWAB OF INTERNAL NOSEOrdering Facility: [facility] Address: [address] [place] [address] Result Comment: xiao s [id number]_[employer] (DENIZ)_EUA This test was developed and its performance characteristics determined by [facility] [place]. This test has been authorized by FDA under an Emergency Use Authorization (EUA). This test has been validated in accordance with the FDA's Guidance Document Policy for Diagnostics Testing in Laboratories Certified to Perform High Complexity Testing under CLIA prior to Emergency use Authorization for Coronavirus Disease 2019 during the Public Health Emergency issued on April 19, 2019. Test performed by [facility], [facility] [place], [address] [place] [address]. Performed By: #### 9 5422-2 ####[facility] LABIA [id number] [place] [address] [place] XR CHEST 2V FRONTAL/LATon XR CHEST 2V FRONTAL/LAT * * *Final Report* * * DATE OF EXAM: Oct 07 2021 11:55AM WOX [id number] - XR CHEST 2V FRONTAL/LAT / PROCEDURE REASON: Acute cough * * * * Physician Interpretation * * * * EXAMINATION: CHEST RADIOGRAPH (2 VIEW FRONTAL and LATERAL) CLINICAL HISTORY: Acute cough MQ: XC2_6 EXAM DATE/TIME: 10/07/2021 11:55 AM COMPARISON: No relevant prior studies available. RESULT: Lines, tubes, and devices: None. Lungs and pleura: Bilateral lower lobe basilar consolidative opacities. No evidence of pulmonary vascular redistribution or pleural effusion. Cardiomediastinal silhouette: Normal cardiomediastinal silhouette. Bones and soft tissues: Status post LEFT shoulder joint replacement IMPRESSION: Bibasilar airspace disease suggestive of infiltrates. Atelectasis less likely. Chest x-ray follow-up to document resolution is recommended. Deputy Administrator: [employer] Transcribe Date/Time: Oct 07 2021 11:58A Dictated by : LORENA CABAN MD This examination was interpreted and the report reviewed and electronically signed by: LORENA CABAN MD on Oct 07 2021 12:00PM EST [id number] Normal [facility] XR Chest PA and Lateralon IMPRESSION: Bibasilar airspace disease suggestive of infiltrates. Atelectasis less likely. Chest x-ray follow-up to document resolution is recommended. Deputy Administrator: [employer] Transcribe Date/Time: Oct 07 2021 11:58A Dictated by : LORENA CABAN MD This examination was interpreted and the report reviewed and electronically signed by: LORENA CABAN MD on Oct 07 2021 12:00PM [facility] DIVISION OF RADIOLOGY * * *Final Report* * * DATE OF EXAM: Oct 07 2021 11:55AM WOX 5291 - XR CHEST 2V FRONTAL/LAT / PROCEDURE REASON: Acute cough * * * * Physician Interpretation * * * * EXAMINATION: CHEST RADIOGRAPH (2 VIEW FRONTAL & LATERAL) CLINICAL HISTORY: Acute cough MQ: XC2_6 EXAM DATE/TIME: 10/07/2021 11:55 AM COMPARISON: No relevant prior studies available. RESULT: Lines, tubes, and devices: None. Lungs and pleura: Bilateral lower lobe basilar consolidative opacities. No evidence of pulmonary vascular redistribution or pleural effusion. Cardiomediastinal silhouette: Normal cardiomediastinal silhouette. Bones and soft tissues: Status post LEFT shoulder joint replacement DIVISION OF RADIOLOGY Provider, Ccmarianna lockhart [place] - 10/07/2021 * * *Final Report* * * DATE OF EXAM: Oct 07 2021 11:55AM WOX 5291 - XR CHEST 2V FRONTAL/LAT / PROCEDURE REASON: Acute cough * * * * Physician Interpretation * * * * EXAMINATION: CHEST RADIOGRAPH (2 VIEW FRONTAL & LATERAL) CLINICAL HISTORY: Acute cough MQ: XC2_6 EXAM DATE/TIME: 10/07/2021 11:55 AM COMPARISON: No relevant prior studies available. RESULT: Lines, tubes, and devices: None. Lungs and pleura: Bilateral lower lobe basilar consolidative opacities. No evidence of pulmonary vascular redistribution or pleural effusion. Cardiomediastinal silhouette: Normal cardiomediastinal silhouette. Bones and soft tissues: Status post LEFT shoulder joint replacement IMPRESSION IMPRESSION: Bibasilar airspace disease suggestive of infiltrates. Atelectasis less likely. Chest x-ray follow-up to document resolution is recommended. Deputy Administrator: ORALIA Transcribe Date/Time: Oct 07 2021 11:58A Dictated by : LORENA CABAN MD This examination was interpreted and the report reviewed and electronically signed by: LORENA CABAN MD on Oct 07 2021 12:00PM EST [facility] Radiology Study observation (narrative) [facility] XR Chest PA and LateralOrder ed By: Ccf Provider on 10-07-2021 [facility] CNPNon [facility]-04-2021 [facility] DE[facility] ([id number]) 1940 F Date Time Provider Department 10/04/21 ROCIO ZAMORA [facility] During your visit today, we recorded the following information about you: Rocio Zamora APRN.[facility] 10/04/2021 7:14 AM Signed Please inform patient of negative COVID. Continue treatment plan discussed at time of discharge. Follow up with PCP Karli Nixon 10/04/2021 8:19 AM Signed Patient given results and verbalized understanding of instructions given. Karli Nixon Allergies As of Date: 10/04/2021 Noted Allergy Reaction MACROBID (NITROFURANTOIN MONOHYD/*09/07/2016 12 - Shortness of Breath 14 - Other: See Comments Comments: Symptoms of heart attack Date Reviewed: 10/03/2021 Reviewed by: Christen Pacheco MA - Fully Assessed Reason for Visit: Results [95] Prescriptions as of 10/04/2021 - golimumab (SIMPONI ARIA) infusion Inject intravenously. - benzonatate (TESSALON PERLE) 100 mg capsule Take 1 capsule by mouth every 8 hours as needed for cough for up to 15 days. - methotrexate 2.5 mg tablet Take 10 mg by mouth one time only. Problem List As Of Date 10/04/2021 Noted Resolved Rheumatoid arthritis involving multiple sites w*08/30/2016 Female bladder prolapse [N81.10] 02/19/2011 Encounter Status:Closed by KARLI NIXON on 10/04/21 [facility] CNOVon 10-03-2021 CNOV Office Visit (UCWSTR ) DEANA ROMAN ([id number]) 1940 F Date Time Provider Department 10/03/21 1:45 PM GARY KHAN [facility] During your visit today, we recorded the following information about you: Temperature Pulse Respiration Blood pressure 99.1 degrees 96/minute 18/minute 110/64 Weight 73.8 kg Gary Khan MD 10/03/2021 2:38 PM Signed Patient presents with: Sore Throat: Sore throat x3 days HPI: Feeling sick for 3-4 days. Positive symptoms: deep Cough, bad Sore throat, Earache, Post nasal drainage, hoarse voice, decreased appetite, Negative symptoms: Shortness of breath, Wheezing, Chest pain, Fever, Vomiting, Diarrhea, OTC: delsym, tylenol arthritis Had COVID 2 months ago without symptoms. Has had COVID vaccine. PAST MEDICAL HISTORY Diagnosis Date Female bladder prolapse 02/2011 Rheumatoid arthritis involving multiple sites with positive rheumatoid factor (HCC) 08/30/2016 MEDICATIONS: Current Outpatient Medications Medication Sig golimumab (SIMPONI ARIA) infusion Inject intravenously. methotrexate 2.5 mg tablet Take 10 mg by mouth one time only. No current facility-administered medications for this visit. ALLERGIES: ALLERGIES Allergen Reactions Macrobid [Nitrofura* Shortness of Breath, Other: See Comments Symptoms of heart attack VITALS: BP 110/64 Pulse 96 Temp 37.3 ?C (99.1 ?F) Resp 18 Wt 73.8 kg (162 lb 12.8 oz) SpO2 97% PHYSICAL EXAM: GEN: mildly ill appearing HEENT: PERRL, EOMI, conjunctiva clear Ears: hearing aids removed. canals clear. TMs without erythema, bulge, or effusion Sinuses: non-tender frontal sinus, non-tender maxillary sinuses Throat: moist mucous membranes, mild pharyneal erythema, no exudate Neck: supple, no thyromegaly, no lymphadenopathy, hoarse voice HEART: regular rate and rhythm, no murmurs LUNGS: clear to auscultation, no wheezes or crackles, no increased WOB; deep raspy cough. ASSESSMENT/PLAN: 1. Sore throat - ICD9: 462, ICD10: J02.9 (primary diagnosis) - STREP A MOLECULAR (POC) - negative - 2019 CORONAVIRUS 2. Acute cough - ICD9: 786.2, ICD10: R05.1 - suspect viral URI, differential includes COVID-19. - Discussed supportive care treatment with home isolation, rest, cough medicine, and analgesia. - Red flags to seek further treatment include chest pain, shortness of breath, and lethargy; in the ER if severe. - BENZONATATE 100 MG CAPSULE Gary Khan MD Referring Provider: SELF [200] Allergies As of Date: 10/03/2021 Noted Allergy Reaction MACROBID (NITROFURANTOIN MONOHYD/*09/07/2016 12 - Shortness of Breath 14 - Other: See Comments Comments: Symptoms of heart attack Date Reviewed: 10/03/2021 Reviewed by: Christen Pacheco MA - Fully Assessed Reason for Visit: Sore Throat [200] Cmt: Sore throat x3 days Primary Visit Diagnosis:Sore throat [J02.9] Other Visit Diagnosis:Acute cough [R05.1] Order(s):STREP A MOLECULAR (POC) [3245979] Order #: [id number]. #:[id number] 2018 CORONAVIRUS [SQCOVID] Order #: [id number] 2018 CORONAVIRUS [SQCOVID] Order #: [id number]. #:[id number] benzonatate (TESSALON PERLE) 100 mg capsuleTake 1 capsule by mouth every 8 hours as needed for cough for up to 15 days.Disp: 30 capsuleRfl: 0 Prescriptions as of 10/03/2021 - golimumab (SIMPONI ARIA) infusion Inject intravenously. - benzonatate (TESSALON PERLE) 100 mg capsule Take 1 capsule by mouth every 8 hours as needed for cough for up to 15 days. - methotrexate 2.5 mg tablet Take 10 mg by mouth one time only. Problem List As Of Date 10/03/2021 Noted Resolved Rheumatoid arthritis involving multiple sites w*08/30/2016 Female bladder prolapse [N81.10] 02/19/2011 Prescriptions ordered this encounter Disp Refills Start End BENZONATATE 100 MG CAPSULE 30 c* 0 10/03/2021 10/18/2021 Route: ORAL Sig: Take 1 capsule by mouth every 8 hours as needed for cough for up to 15 days. Medications Discontinued During This Encounter Prescriptions - inFLIXimab (REMICADE) 100 mg injection (Discontinued) Reported on 09/01/2021 Encounter Status:Closed by GARY KHAN on 10/03/21 Normal [facility] SARS-CoV-2 RNA Resp Ql JEANMARIE+p gaudencio 10-03-2021 SARS-CoV-2 (COVID-19) RNA JEANMARIE+probe Ql (Resp) COVID 19 RESULT: SARS-CoV-2 (Agent of COVID-19) Not Detected by RT-PCR or equivalent method. This test was developed and its performance characteristics determined by [facility]'s [facility]ato Castro [facility] [place]. This test has been authorized by FDA under an Emergency Use Authorization (EUA). This test has been validated in accordance with the FDA's Guidance Document Policy for Diagnostics Testing in Laboratories Certified to Perform High Complexity Testing under CLIA prior to Emergency use Authorization for Coronavirus Disease 2019 during the Public Health Emergency issued on April 19, 2019. Test performed by [facility], Donato Sellers Pathology [facility] Laboratory [facility] [place], [address] [address]. Normal [facility] Comment on above: Performed By: #### 9 [id number] ####[facility] LABCLIA [id number] [facility] [id number] [address] [place] STREP A MOLECULAR (POC)on Procedural Control Valid [facility] Strep A (POCT) Negative Negative [facility] Esthela 09-02-2021 CNPAndre Telephone (UCWSTR) DEANA ROMAN ([id number]) 1940 F Date Time Provider Department 09/02/21 HARJIT GARCIA [facility] During your visit today, we recorded the following information about you: Harjit Garcia APRN.[employer] 09/02/2021 8:39 AM Signed Patient is positive for covid please notify and tell patient to follow current cdc guidelines. 5 days of quarantine and then 5 more days of masking. Follow up if symptoms worsen. Thank you negative for flu Jessica Mendez LPN 09/02/2021 9:26 AM Signed Phone call placed patient advised (see prior provider encounter) Patient verbalized understanding, agreed with plan of care. Jessica Mendez LPN Allergies As of Date: 09/02/2021 Noted Allergy Reaction MACROBID (NITROFURANTOIN MONOHYD/*09/07/2016 12 - Shortness of Breath 14 - Other: See Comments Comments: Symptoms of heart attack Date Reviewed: 09/01/2021 Reviewed by: Christen Pacheco MA - Fully Assessed Reason for Visit: Results [95] Prescriptions as of 09/02/2021 - inFLIXimab (REMICADE) 100 mg injection Inject 100 mg intravenously every 3 months. - methotrexate 2.5 mg tablet Take 10 mg by mouth one time only. Problem List As Of Date 09/02/2021 Noted Resolved Rheumatoid arthritis involving multiple sites w*08/30/2016 Female bladder prolapse [N81.10] 02/19/2011 Encounter Status:Closed by JESSICA MENDEZ LPN on 09/02/21 Normal [facility] CNOVon 09-01-2021 CNOV Office Visit (UCWSTR ) DEANA ROMAN ([id number]) 1940 F Date Time Provider Department 09/01/21 10:00 AM ROCIO ZAMORA [facility] During your visit today, we recorded the following information about you: Temperature Pulse Respiration Blood pressure 98.2 degrees 70/minute 21/minute 148/82 Weight 72.5 kg Rocio Zamora APRN.[employer] 09/01/2021 10:45 AM Signed This note was created using [employer]. Subjective Deana Roman is a 80 year old female. 80 year old female with PMH RA presents with I have COVID Acute onset of symptoms is unsure per patient. Endorses that last Sunday she felt super fatigued and tired. +body aches Lasted 24 hours, and I was okay Her tested positive for COVID this past Sunday. She took a home test Sunday and was positive. She denies that she is experiencing symptoms presently Denies fever or chills. Denies URI sx Mild cough States that she is to go shopping today and a picnic this weekend when can I go out and about The history is provided by the patient. No foreign language instructor was used. Cough This is a new problem. The current episode started more than 2 days ago. The problem has not changed since onset.The cough is non-productive. There has been no fever. Pertinent negatives include no chest pain, no chills, no sweats, no weight loss, no ear congestion, no ear pain, no headaches, no rhinorrhea, no sore throat, no myalgias, no shortness of breath, no wheezing and no eye redness. She has tried nothing for the symptoms. The treatment provided no relief. She is not a smoker. Her past medical history does not include bronchitis, pneumonia, bronchiectasis, COPD, emphysema or asthma. PAST MEDICAL HISTORY Diagnosis Date - Female bladder prolapse 02/2011 - Rheumatoid arthritis involving multiple sites with positive rheumatoid factor (HCC) 08/30/2016 PAST SURGICAL HISTORY Procedure Laterality Date - HYSTERECTOMY HX N/A ALLERGIES Macrobid [Nitrofurantoin Monohyd/M-Cryst] MEDICATIONS methotrexate 2.5 mg tablet Take 10 mg by mouth one time only. inFLIXimab (REMICADE) 100 mg injection Inject 100 mg intravenously every 3 months. No family history on file. Social History Tobacco Use - Smoking status: Never Smoker - Smokeless tobacco: Never Used Substance Use Topics - Alcohol use: Not on file - Drug use: Not on file Review of Systems Constitutional: Negative for chills and weight loss. HENT: Negative for congestion, dental problem, ear pain, rhinorrhea and sore throat. Eyes: Negative for redness. Respiratory: Positive for cough. Negative for apnea, chest tightness, shortness of breath and wheezing. Cardiovascular: Negative for chest pain, palpitations and leg swelling. Gastrointestinal: Negative for abdominal pain, diarrhea, nausea and vomiting. Musculoskeletal: Negative for arthralgias, back pain, gait problem and myalgias. Skin: Negative for color change, pallor, rash and wound. Allergic/Immunologic: Negative for environmental allergies, food allergies and immunocompromised state. Neurological: Negative for dizziness, facial asymmetry and headaches. Hematological: Negative for adenopathy. Does not bruise/bleed easily. Psychiatric/Behavioral: Negative for agitation and behavioral problems. Objective BP 148/82 Pulse 70 Temp 36.8 ?C (98.2 ?F) Resp 21 Wt 72.5 kg (159 lb 12.8 oz) SpO2 97% Physical Exam Vitals and nursing note reviewed. Constitutional: General: She is not in acute distress. Appearance: Normal appearance. She is normal weight. She is not ill-appearing, toxic-appearing or diaphoretic. HENT: Head: Normocephalic and atraumatic. Right Ear: Ear canal and external ear normal. Left Ear: Ear canal and external ear normal. Nose: Nose normal. No congestion or rhinorrhea. Mouth/Throat: Mouth: Mucous membranes are moist. Pharynx: No oropharyngeal exudate or posterior oropharyngeal erythema. Eyes: General: Right eye: No discharge. Left eye: No discharge. Extraocular Movements: Extraocular movements intact. Conjunctiva/sclera: Conjunctivae normal. Pupils: Pupils are equal, round, and reactive to light. Cardiovascular: Rate and Rhythm: Normal rate and regular rhythm. Pulses: Normal pulses. Heart sounds: Normal heart sounds. No murmur heard. No friction rub. Pulmonary: Effort: Pulmonary effort is normal. No respiratory distress. Breath sounds: Normal breath sounds. No stridor. No wheezing, rhonchi or rales. Chest: Chest wall: No tenderness. Abdominal: General: Abdomen is flat. There is no distension. Palpations: Abdomen is soft. There is no mass. Tenderness: There is no abdominal tenderness. There is no right CVA tenderness, left CVA tenderness, guarding or rebound. Hernia: No hernia is present. Musculoskeletal: General: No swelling, tenderness, deformity or signs of injury. No (more content not included)... Normal [facility] Absolute lymphocyte counton 07-15-2021 Lymphocytes Auto (Unsp spec) [#/Vol] 1.71 10*3/uL 0.83-4.51 [facility] [place] [facility] Work Phone: Basophil percentageon 2021 Basophils/100 WBC (Bld) 0.9 % 0-1 [facility] [place] [facility] Work Phone: Bilirubin [Mass/Vol] 0.50 mg/dL 0.20-1.[address] [facility] Work Phone: Comment on above: For patients on eltr ombopag therapy, use of Dimension [place] TBIL is not recommended. Chloride [Moles/Vol] 102 mmol/L 98-[address] [facility] Work Phone: Eosinophils/100 WBC (Bld) 1.8 % 0-5 [facility] [place] [facility] Work Phone: Glucose [Mass/Vol] 102 mg/dL 74-106 [facility] Work Phone: Comment on above: Fasting Glucose resu lt from 100 to 125 mg/dL suggests IMPAIRED HOMEOSTASIS per A.D.A. criteria. Neutrophils (Bld) [#/Vol] 2.1 10*3/uL 2.0-7.7 [facility] [place] [facility] Work Phone: Neutrophils/100 WBC (Bld) 46.4 % 47-70 [facility] [place] [facility] Work Phone: Potassium [Moles/Vol] 3.9 mmol/L 3.5-5.1 [facility] Work Phone: Protein [Mass/Vol] 7.0 g/dL 6.4-8.2 [facility] Work Phone: Sodium [Moles/Vol] 139 mmol/L 136-145 [facility] Work Phone: WBC (Bld) [#/Vol] 4.4 10*3/uL 4.4-11.0 [facility] Work Phone: Blood erythrocytes count (nu mber/volume)on 07-15-2021 RBC (Bld) [#/Vol] 3.50 10*6/uL 4.2-5.4 [facility] Work Phone: Blood hemoglobin measurement (mass/volume)on 07-15-2021 Hemoglobin (Bld) [Mass/Vol] 11.6 g/dL 12.0-15.0 [facility] [place] [facility] Work Phone: Blood lymphocytes/100 leukoc yteson 07-15-2021 Lymphocytes/100 WBC (Bld) 38.8 % 19-41 [facility] [place] [facility] Work Phone: Blood monocytes/100 leukocyt eson 07-15-2021 Monocytes/100 WBC (Bld) 11.6 % 0-10 [facility] [place] [facility] Work Phone: Blood platelet mean volumeon 07-15-2021 Platelet mean volume (Bld) [Entitic vol] 10.3 fL 6.2-12.0 [facility] [place] [facility] Work Phone: [phone] Determination of erythrocyte mean corpuscular volume (MCV)on 07-15-2021 MCV (RBC) [Entitic vol] 102.6 fL 81-99 [facility] [place] [facility] Work Phone: [phone] Hematocrit Auto (Bld) [Volum e fraction]on 07-15-2021 Hematocrit (Bld) [Volume fraction] 35.9 % 37-47 [facility] [place] [facility] Work Phone: [phone] Laboratory - Chemistry and C hemistry - challengeon 07-15-2021 ALP [Catalytic activity/Vol] 64 U/L 45-117 [facility] [place] [facility] Work Phone: ALT [Catalytic activity/Vol] 17 U/L 13-56 [facility] [place] [facility] Work Phone: [phone] CO2 [Moles/Vol] 32.0 mmol/L 21.0-32.0 [facility] [place] [facility] Work Phone: [phone] Globulin (S) [Mass/Vol] 3.6 g/dL 2.2-4.2 [facility] [place] [facility] Work Phone: [phone] Urea nitrogen/Creatinine [Mass ratio] 27.1 mg/mg 10-20 [facility] [place] [facility] Work Phone: Laboratory - Hematology and Cell countson 07-15-2021 Erythrocyte distribution width (RBC) [Entitic vol] 46.6 fL 35.1-43.9 [facility] [place] [facility] Work Phone: [phone] Erythrocyte distribution width (RBC) [Ratio] 12.5 % 11.6-14.6 [facility] [place] [facility] Work Phone: [phone] Immature granulocytes/100 WBC (Bld) 0.500 % 0.0-0.9 [facility] [place] [facility] Work Phone: [phone] Comment on above: IG% - Immature Granu locytes (promyelocytes, myelocytes and metamyelocytes) > 1% indicates that a LEFT SHIFT is Present. MCH (RBC) [Entitic mass] 33.1 pg 27.0-32.0 [facility] [place] [facility] Work Phone: Nucleated RBC/100 WBC (Bld) [Ratio] 0 % 0-5 [facility] [place] [facility] Work Phone: MCHC Auto (RBC) [Mass/Vol]on 07-15-2021 MCHC (RBC) [Mass/Vol] 32.3 g/dL 32-36 [facility] Work Phone: No Panel Informationon 07-15 Estimated GFR (MDRD) Amer 87 mL/min >60 [facility] [place] [facility] Work Phone: Comment on above: GFR Calc Estimated GFR (MDRD) Non-Af Amer 72 mL/min >60 [facility] [place] [facility] Work Phone: Comment on above: Non- GFR Calc Platelets bldon 07-15-2021 Platelets (Bld) [#/Vol] 321 10*3/uL 150-450 [facility] [place] [facility] Work Phone: Serum or plasma albumin bentley urement (mass/volume)on 07-15-2021 Albumin [Mass/Vol] 3.4 g/dL 3.2-5.0 [facility] Work Phone: Serum or plasma albumin/glob ulin mass ratioon 07-15-2021 Albumin/Globulin [Mass ratio] 0.9 {ratio} 0.9-2.4 [facility] [place] [facility] Work Phone: Serum or plasma calcium bentley urement (mass/volume)on 07-15-2021 Calcium [Mass/Vol] 9.1 mg/dL 8.5-10.1 [facility] Work Phone: Serum or plasma creatinine m easurement (mass/volume)on 07-15-2021 Creatinine [Mass/Vol] 0.81 mg/dL 0.55-1.02 [facility] Work Phone: Comment on above: The validity of the calculated GFR & GFRAA in patients over 70 years has not been determined. Clinical correlation is essential. Serum or plasma urea nitroge n measurement (mass/volume)on 07-15-2021 Urea nitrogen [Mass/Vol] 22 mg/dL 7-18 [facility] [place] [facility] Work Phone: Thin prep Papanicolaou smear with manual screeningon 07-15-2021 Thin prep Papanicolaou smear with manual screening 18 U/L 15-37 [facility] [place] [facility] Work Phone: Thin prep Papanicolaou smear with manual screening 5 5-15 [facility] [place] [facility] Work Phone: CNCOon 09-13-2016 CNCO Letter Text [facility] [id number] [facility] [address] [place], [place] [address]Vxqum: [phone]: [phone] [address] Lucretia Babcock,I wanted to take this opportunity to thank you for referring Deana Reesejeysonjairrola [facility] for a consultation. Deana Roman isscheduled to meet with me on 10/09/16.It is a privilege to assist you in the treatment of your patient and I willkeep you informed of all treatment plans and procedures performed.Thank you again for referring to [facility].Sincerely,Jovany Huertas MD(Electronically signed to expedite care) Normal [facility] Vital Signs Date Time Vital Sign Value Performing Clinician Facility 07-22-2024 10:39-0400 Body height 165.1 cm No Primary Care Physician [facility] 09-13-2022 10:05-0400 Body temperature 96.9 [degF] [facility] 09-13-2022 10:05-0400 Diastolic blood pressure 61 mm[Hg] [facility] [place] [facility] 09-13-2022 10:05-0400 Heart rate 62 /min [facility] 09-13-2022 10:05-0400 Respiratory rate 16 /min [facility] 09-13-2022 10:05-0400 SaO2% (BldA) [Mass fraction] 96 % [facility] [place] [facility] 09-13-2022 10:05-0400 Systolic blood pressure 103 mm[Hg] [facility] 09-13-2022 08:37-0400 Body height 165.1 cm [facility] 09-13-2022 08:37-0400 Body mass index (BMI) [Ratio] 26.2 kg/m2 [facility] 09-13-2022 08:37-0400 Body weight 71.66 kg [facility] 10-28-2021 10:04-0400 Diastolic blood pressure 65 mm[Hg] Out [facility] Work Phone: 10-28-2021 10:04-0400 Heart rate 65 /min Out [facility] Work Phone: 10-28-2021 10:04-0400 Systolic blood pressure 117 mm[Hg] Out [facility] Work Phone: 10-28-2021 08:28-0400 Body height 165.1 cm Out [facility] Work Phone: 10-28-2021 08:28-0400 Body mass index (BMI) [Ratio] 25.8 kg/m2 Out [facility] Work Phone: 10-28-2021 08:28-0400 Body temperature 96.6 [degF] Out [facility] Work Phone: 10-28-2021 08:28-0400 Body weight 70.39 kg Out [facility] Work Phone: 10-28-2021 08:28-0400 Respiratory rate 16 /min Out [facility] Work Phone: 10-28-2021 08:28-0400 SaO2% (BldA) [Mass fraction] 95 % Out [facility] Work Phone: 10-20-2021 12:05-0400 Body mass index (BMI) [Ratio] 26.1 kg/m2 Out [facility] Work Phone: 10-20-2021 12:05-0400 Body temperature 98.6 [degF] Out [facility] Work Phone: 10-20-2021 12:05-0400 Body weight 71.21 kg Out [facility] Work Phone: 10-20-2021 12:05-0400 Diastolic blood pressure 74 mm[Hg] Out [facility] Work Phone: 10-20-2021 12:05-0400 Heart rate 88 /min Out [facility] Work Phone: 10-20-2021 12:05-0400 Respiratory rate 14 /min Out [facility] Work Phone: 10-20-2021 12:05-0400 SaO2% (BldA) [Mass fraction] 94 % Out [facility] Work Phone: 10-20-2021 12:05-0400 Systolic blood pressure 126 mm[Hg] Out [facility] Work Phone: 10-20-2021 11:22-0400 Body temperature 98.29 [degF] Che Montana LINE ORDERING CLINICIAN.ASSOCIATE MERCHANDISER Work Phone: [facility] 10-20-2021 11:22-0400 Body weight 71.31 kg Che Montana LINE ORDERING CLINICIAN.ASSOCIATE MERCHANDISER Work Phone: [facility] 10-20-2021 11:22-0400 Diastolic blood pressure 68 mm[Hg] Che Montana LINE ORDERING CLINICIAN.ASSOCIATE MERCHANDISER Work Phone: [facility] 10-20-2021 11:22-0400 Heart rate 86 /min Che Montana LINE ORDERING CLINICIAN.ASSOCIATE MERCHANDISER Work Phone: [facility] 10-20-2021 11:22-0400 Respiratory rate 21 /min Che Montana LINE ORDERING CLINICIAN.ASSOCIATE MERCHANDISER Work Phone: [facility] 10-20-2021 11:22-0400 SaO2% (BldA) [Mass fraction] 98 % Che Montana LINE ORDERING CLINICIAN.ASSOCIATE MERCHANDISER Work Phone: [facility] 10-20-2021 11:22-0400 Systolic blood pressure 130 mm[Hg] Che Montana LINE ORDERING CLINICIAN.ASSOCIATE MERCHANDISER Work Phone: [facility] 10-07-2021 11:00-0400 Body temperature 103.5 [degF] Rocio Zamora LINE ORDERING CLINICIAN.ASSOCIATE MERCHANDISER Work Phone: [facility] 10-07-2021 11:00-0400 Body weight 69.4 kg Rocio Zamora LINE ORDERING CLINICIAN.ASSOCIATE MERCHANDISER Work Phone: [facility] 10-07-2021 11:00-0400 Diastolic blood pressure 62 mm[Hg] Rocio Zamora LINE ORDERING CLINICIAN.ASSOCIATE MERCHANDISER Work Phone: [facility] 10-07-2021 11:00-0400 Heart rate 125 /min Rocio Zamora LINE ORDERING CLINICIAN.ASSOCIATE MERCHANDISER Work Phone: [facility] 10-07-2021 11:00-0400 Respiratory rate 20 /min Rocio Zamora LINE ORDERING CLINICIAN.ASSOCIATE MERCHANDISER Work Phone: [facility] 10-07-2021 11:00-0400 SaO2% (BldA) [Mass fraction] 90 % Rocio Zamora LINE ORDERING CLINICIAN.ASSOCIATE MERCHANDISER Work Phone: [facility] 10-07-2021 11:00-0400 Systolic blood pressure 148 mm[Hg] Rocio Zamora LINE ORDERING CLINICIAN.ASSOCIATE MERCHANDISER Work Phone: [facility] 10-03-2021 13:56-0400 Body temperature 99.1 [degF] Gary Khan MD Work Phone: [facility] 10-03-2021 13:56-0400 Body weight 73.85 kg Gary Khan MD Work Phone: [facility] 10-03-2021 13:56-0400 Diastolic blood pressure 64 mm[Hg] Gary Khan MD Work Phone: [facility] 10-03-2021 13:56-0400 Heart rate 96 /min Gary Khan MD Work Phone: [facility] 10-03-2021 13:56-0400 Respiratory rate 18 /min Gary Khan MD Work Phone: [facility] 10-03-2021 13:56-0400 SaO2% (BldA) [Mass fraction] 97 % Gary Khan MD Work Phone: [facility] 10-03-2021 13:56-0400 Systolic blood pressure 110 mm[Hg] Gary Khan MD Work Phone: [facility] 09-01-2021 09:59-0400 Body temperature 98.2 [degF] Rocio Zamora LINE ORDERING CLINICIAN.ASSOCIATE MERCHANDISER Work Phone: [facility] 09-01-2021 09:59-0400 Body weight 72.48 kg Rocio Zamora LINE ORDERING CLINICIAN.ASSOCIATE MERCHANDISER Work Phone: [facility] 09-01-2021 09:59-0400 Diastolic blood pressure 82 mm[Hg] Rocio Zamora LINE ORDERING CLINICIAN.ASSOCIATE MERCHANDISER Work Phone: [facility] 09-01-2021 09:59-0400 Heart rate 70 /min Rocio Zamora LINE ORDERING CLINICIAN.ASSOCIATE MERCHANDISER Work Phone: [facility] 09-01-2021 09:59-0400 Respiratory rate 21 /min Rocio Zamora LINE ORDERING CLINICIAN.ASSOCIATE MERCHANDISER Work Phone: [facility] 09-01-2021 09:59-0400 SaO2% (BldA) [Mass fraction] 97 % Rocio Zamora LINE ORDERING CLINICIAN.ASSOCIATE MERCHANDISER Work Phone: [facility] 09-01-2021 09:59-0400 Systolic blood pressure 148 mm[Hg] Rocio Zamora LINE ORDERING CLINICIAN.ASSOCIATE MERCHANDISER Work Phone: [facility] 08-25-2021 09:24-0400 Body temperature 99.1 [degF] [facility] Work Phone: 08-25-2021 09:24-0400 Diastolic blood pressure 60 mm[Hg] [facility] Work Phone: 08-25-2021 09:24-0400 Heart rate 81 /min [facility] Work Phone: 08-25-2021 09:24-0400 SaO2% (BldA) [Mass fraction] 96 % [facility] Work Phone: 08-25-2021 09:24-0400 Systolic blood pressure 118 mm[Hg] [facility] Work Phone: 08-25-2021 08:24-0400 Body height 163.83 cm [facility] Work Phone: 08-25-2021 08:24-0400 Body mass index (BMI) [Ratio] 27.1 kg/m2 [facility] Work Phone: 08-25-2021 08:24-0400 Body weight 73.02 kg [facility] Work Phone: 08-25-2021 08:24-0400 Respiratory rate 16 /min [facility] Work Phone: Encounters Encounter Date Encounter Type Care Provider Facility Start: 07-22-2024 End: 07-22-[address] Kj Villa MD -[facility] Start: 07-22-2024 End: 07-22-2024 ambulatory Kj Villa Facility:[facility] Start: 07-16-2024 End: 07-16-2024 ambulatory No Primary Care Physician [facility] Work Phone: Start: 07-16-2024 End: 07-16-[address] Marissa Amezcua MD -[facility] Work Phone: Start: 07-16-2024 End: 07-16-2024 ambulatory Marissa Velneftaly Facility:[facility] Start: 10-23-2023 End: 10-23-2023 ambulatory [facility] Start: 2023 End: 2023 ambulatory [facility] Facility:[facility] Start: 08-24-2023 End: 08-24-2023 ambulatory [facility] Facility:[facility] Start: 07-25-2023 End: 07-25-2023 ambulatory [facility] Facility:[facility] Start: 10-16-2022 End: 10-16-2022 ambulatory [facility] Work Phone: Start: 10-16-2022 End: 10-16-2022 Patient encounter procedure [facility] Work Phone: Start: 09-13-2022 End: 09-13-2022 ambulatory [facility] Work Phone: Start: 09-13-2022 End: 09-13-2022 Patient encounter procedure [facility] Work Phone: Start: 07-21-2022 End: 07-21-2022 ambulatory [facility] Work Phone: Start: 07-21-2022 End: 07-21-2022 Patient encounter procedure [facility] Start: 07-19-2022 End: 07-19-2022 ambulatory [facility] Work Phone: Start: 07-19-2022 End: 07-19-2022 Patient encounter procedure [facility] Start: 10-28-2021 End: 10-28-2021 ambulatory Out of Town Doctor [facility] Work Phone: Start: 10-28-2021 End: 10-28-2021 Patient encounter procedure Out Town Doctor [facility] Start: 10-20-2021 End: 10-20-2021 Patient encounter procedure Che Boyle APRN.ASSOCIATE MERCHANDISER Work Phone: [facility] Comment on above: Acute cough (Primary Dx) Start: 10-13-2021 End: 10-13-2021 ambulatory [facility] Work Phone: Start: 10-13-2021 End: 10-13-2021 Patient encounter procedure [facility] Start: 10-08-2021 Telephone encounter Selene Chamberlain APRN.ASSOCIATE MERCHANDISER Work Phone: [facility] Comment on above: Results, Lab Start: 10-07-2021 End: 10-07-2021 Patient encounter procedure Rocio Lazcanogs LINE ORDERING CLINICIAN.ASSOCIATE MERCHANDISER Work Phone: [facility] Comment on above: Acute cough (Primary Dx); Bacterial pneumonia; Fever, unspecified fever cause Start: 10-07-2021 End: 10-07-2021 Subsequent hospital visit by physician Xr Pending Sale To [facility] Work Phone: Radiology Comment on above: Acute cough [R05.1] Start: 10-04-2021 Telephone encounter Rocio clinton LINE ORDERING CLINICIAN.ASSOCIATE MERCHANDISER Work Phone: [facility] Comment on above: Results Start: 10-03-2021 End: 10-03-2021 Patient encounter procedure Gary Khan MD Work Phone: [facility] Comment on above: Sore throat (Primary Dx); Acute cough Start: 09-02-2021 Telephone encounter Harjit Garcia LINE ORDERING CLINICIAN.ASSOCIATE MERCHANDISER Work Phone: [facility] Comment on above: Results Start: 09-01-2021 End: 09-01-2021 Patient encounter procedure Rocio Zamora LINE ORDERING CLINICIAN.ASSOCIATE MERCHANDISER Work Phone: [facility] Comment on above: Suspected COVID-19 v irus infection (Primary Dx) Start: 08-25-2021 End: 08-25-2021 Patient encounter procedure [facility] Start: 07-15-2021 End: 07-15-2021 Patient encounter procedure [facility] [place] Procedures Date Procedure Procedure Detail Performing Clinician Start: 10-20-2021 Plain chest X-ray Out T own Doctor Start: 10-07-2021 Radiologic exam ches t 2 views Rocio Zamora LINE ORDERING CLINICIAN.ASSOCIATE MERCHANDISER Work Phone: Start: 10-03-2021 STREP A MOLECULAR (POC) Gary Khan MD Work Phone: Plan of Treatment Date Care Activity Detail Author Start: 07-22-2024 Plain x-ray of pelvi s and lower extremity Hips B/L min 2 views w/ Pelvis [facility] Start: 10-21-2023 Influenza vaccination Influenza Vacc ine (#1) [facility] Start: 02-19-2023 Advance Directive Discussion Advance Directive Discussion [facility] Start: 09-13-2022 Iv infusion therapy/prophylaxis /dx 1st to 1 hr THER/PROPH/DIAG IV INF [facility] Start: 10-28-2021 Iv infusion therapy/prophylaxis /dx 1st to 1 hr THER/PROPH/DIAG IV INF [facility] Work Phone: Start: 10-20-2021 Influenza vaccination INFLUENZA (#1) [facility] Start: 10-07-2021 End: 10-21-2021 Influenza virus A and B RNA and SARS-CoV-2 (COVID-19) N gene panel - Respiratory specimen by JEANMARIE with probe detection COVID WITH FLUA+B, ROUTINE Microbiology Routine Acute cough Bacterial pneumonia Fever, unspecified fever cause Expected: 10/07/2021, Expires: 10/21/2021 [facility] Work Phone: Comment on above: Expected: 10/07/2021 , Expires: 10/21/2021 Start: 10-03-2021 End: 10-17-2021 SARS-CoV-2 (COVID-19) RNA [Presence] in Respiratory specimen by JEANMARIE with probe detection 2019 CORONAVIRUS Microbiology Routine Sore throat Expected: 10/03/2021, Expires: 10/17/2021 [facility] Work Phone: Comment on above: Expected: 10/03/2021 , Expires: 10/17/2021 Start: 09-01-2021 End: 09-15-2021 Influenza virus A and B RNA and SARS-CoV-2 (COVID-19) N gene panel - Respiratory specimen by JEANMARIE with probe detection [facility] Work Phone: Comment on above: Expected: 09/01/2021 , Expires: 09/15/2021 Start: 08-25-2021 Iv infusion therapy/prophylaxis /dx 1st to 1 hr THER/PROPH/DIAG IV INF [facility] Work Phone: Start: 02-19-2021 ADVANCE DIRECTIVE DISCUSSION ADVANCE DIRECTIVE DISCUSSION [facility] Start: 2013 RSV Vaccine (1 - 1-d ose 75+ series) RSV Vaccine (1 - 1-dose 75+ series) [facility] Start: 02-19-2013 Pneumococcal Vaccine : 65+ (2 of 2 - PCV) Pneumococcal Vaccine: 65+ (2 of 2 - PCV) [facility] Start: 04-16-2009 Shingrix Vaccine (1 of 2) Shingrix Vaccine (1 of 2) [facility] Start: 10-20-2003 BONE DENSITY BONE DENSITY [facility] Start: 10-20-2003 Screening for osteoporosis Bone Density Screening [facility] Start: 10-20-1983 DIABETES SCREEN [facility] Start: 10-20-1983 Diabetes Screening Diabetes Screenin g [facility] Start: 1957 SHINGRIX VACCINE (1 of 2) SHINGRIX VACCINE (1 of 2) [facility] Start: 1957 Urine microalbumin profile [facility] Start: 1956 Anxiety Screening Anxiety Screening [facility] Start: 1956 Depression Screening Depression Scre ening [facility] Start: 1949 Screening for malign ant neoplasm of cervix Cervical Cancer Screening [facility] Start: 1944 PNEUMOCOCCAL: 65+ (1 - PCV) PNEUMOCOCCAL: 65+ (1 - PCV) [facility] Start: 10-20-1943 COVID-19 VACCINE (#1) COVID-19 VACCI NE (#1) [facility] Start: 04-19-1939 COVID-19 VACCINE (#1) COVID-19 VACCI NE (#1) [facility] Payers Date Payer Category Payer Self-pay [id number] 2023 Unknown [id number] 2021 Medicare AETNA MEDICARE A ETNA MEDICARE PPO [id number] 2021-Present [phone] [address] [place] [address] O [id number] 2021 Medicare AETNA MEDICARE A ETNA MEDICARE PPO [id number] 2021-Present [phone] [address] [place] [address] PPO [id number] 2011 Unknown [id number] 2003 Medicare [id number] 2003 Medicare [id number] Private Health Insurance 101 [id number] Unknown [id number] 62 Unknown [id number] 62 Unknown [id number] 62 Unknown [id number] 62 Unknown [id number] 62 Unknown [id number] 62 Social History Date Type Detail [facility] Work Phone: Start: 1940 Sex Assigned At Female [facility] Start: 10-03-2021 [facility] tobacco [facility] Start: 09-01-2021 End: 10-07-2021 Alcohol intake Not Asked [facility] Start: 1940 Sex Assigned At Not on file [facility] Start: 08-22-2021 End: 09-01-2021 Exposure to SARS-CoV-2 (event) Yes [facility] Work Phone: Start: 10-03-2021 Tobacco use and exposure Smokeless tobacco non-user [facility] Start: 09-23-2021 End: 10-20-2021 Exposure to SARS-CoV-2 (event) Not sure [facility] Start: 10-07-2021 History of Social function [facility] Start: 10-07-[address] [facility] Tobacco smoking stat us [facility] Unknown if ever smoked [facility] Work Phone: Mental Status Date Assessment Result Facility 09-13-2022 Cognitive function Voice/Name [facility] Work Phone: 10-28-2021 Cognitive function Awake;Alert;A ppropriate;Fol lows Commands [facility] Work Phone: 08-25-2021 Cognitive function Awake;Alert;A ppropriate;Fol lows Commands [facility] Work Phone: Clinical Notes 09-01-2021 to 10-20-2021 Che Boyle APRN.CNP - 10/20/2021 12:06 PM EDTTelephone Encounter - Karli Nixon - 10/08/2021 9:10 AM EDTTelephone Encounter - Karli Nixon - 10/08/2021 9:10 AM EDTPatient Instructions Note Date & Type Note Facility 10-20-2021 Note HNO ID: [id number] Author: Che Boyle APRN.ASSOCIATE MERCHANDISER Service: ? Author Type: Nurse Practitioner Type: Progress Notes Filed: 10/20/2021 6:30 PM Note Text: Subjective HPI HPI Deana Roman is a 81 year old female who presents today for need for xray per specialist before she gets another infusion. Patient was treated with doxycycline for pneumonia. Patient reports feeling better. Still has slight cough. .Patient presents with: XRay Report: Needs chest xray to prove absence of pneumonia PAST MEDICAL HISTORY Diagnosis Date Female bladder prolapse 02/2011 Rheumatoid arthritis involving multiple sites with positive rheumatoid factor (HCC) 08/30/2016 PAST SURGICAL HISTORY Procedure Laterality Date HYSTERECTOMY HX N/A ALLERGIES Macrobid [Nitrofurantoin Monohyd/M-Cryst] MEDICATIONS golimumab (SIMPONI ARIA) infusion Inject intravenously. methotrexate 2.5 mg tablet Take 10 mg by mouth one time only. No family history on file. Social History Tobacco Use Smoking status: Never Smokeless tobacco: Never ROS Objective Blood pressure 130/68, pulse 86, temperature 36.8 ?C (98.3 ?F), resp. rate 21, weight 71.3 kg (157 lb 3.2 oz), SpO2 98 %. Physical Exam Constitutional: General: She is not in acute distress. Appearance: She is not toxic-appearing or diaphoretic. HENT: Head: Normocephalic and atraumatic. Cardiovascular: Rate and Rhythm: Normal rate and regular rhythm. Heart sounds: Normal heart sounds, S1 normal and S2 normal. Pulmonary: Effort: Pulmonary effort is normal. Breath sounds: Normal breath sounds. Neurological: Mental Status: She is alert and oriented to person, place, and time. Gait: Gait is intact. ASSESSMENT/PLAN: 1. Acute cough - ICD9: 786.2, ICD10: R05.1 Patient was to go [facility] and get xray as xray services [facility]. I called patient after few hours, patient [facility]. - XR CHEST 2V FRONTAL/LAT Che Boyle APRN.ASSOCIATE MERCHANDISER [facility] 10-20-2021 History of Presen t illness Narrative Subjective HPI HPI Deana Roman is a 81 year old female who presents today for need for xray per specialist before she gets another infusion. Patient was treated with doxycycline for pneumonia. Patient reports feeling better. Still has slight cough. .Patient presents with: XRay Report: Needs chest xray to prove absence of pneumonia PAST MEDICAL HISTORY Diagnosis Date Female bladder prolapse 02/2011 Rheumatoid arthritis involving multiple sites with positive rheumatoid factor (HCC) 08/30/2016 PAST SURGICAL HISTORY Procedure Laterality Date HYSTERECTOMY HX N/A ALLERGIES Macrobid [Nitrofurantoin Monohyd/M-Cryst] MEDICATIONS golimumab (SIMPONI ARIA) infusion Inject intravenously. methotrexate 2.5 mg tablet Take 10 mg by mouth one time only. No family history on file. Social History Tobacco Use Smoking status: Never Smokeless tobacco: Never ROS Objective Blood pressure 130/68, pulse 86, temperature 36.8 C (98.3 F), resp. rate 21, weight 71.3 kg (157 lb 3.2 oz), SpO2 98 %. Physical Exam Constitutional: General: She is not in acute distress. Appearance: She is not toxic-appearing or diaphoretic. HENT: Head: Normocephalic and atraumatic. Cardiovascular: Rate and Rhythm: Normal rate and regular rhythm. Heart sounds: Normal heart sounds, S1 normal and S2 normal. Pulmonary: Effort: Pulmonary effort is normal. Breath sounds: Normal breath sounds. Neurological: Mental Status: She is alert and oriented to person, place, and time. Gait: Gait is intact. ASSESSMENT/PLAN: 1. Acute cough - ICD9: 786.2, ICD10: R05.1 Patient was to go [facility] and get xray as xray services [facility] in [facility]. I called patient after few hours, patient stated [facility]. - XR CHEST 2V FRONTAL/LAT Che Boyle APRN.ASSOCIATE MERCHANDISER documented in this encounter [facility] 10-08-2021 Miscellaneous Notes Patient given results and verbalized understanding of instructions given. Karli Nixon ----- Message from Selene Mcgill APRN.ASSOCIATE MERCHANDISER sent at 10/08/2021 8:06 AM EDT ----- Please advise patient of negative COVID and flu test. documented in this encounter [facility] 10-07-2021 Note HNO ID: [id number] Author: Leidy Martinez, RT(R) Service: Nuclear Medicine Author Type: Technologist Type: Progress Notes Filed: 10/07/2021 11:56 AM Note Text: Radiology Service Progress Note PATIENT NAME: Deana Roman DATE OF SERVICE: October 07, 2021 TIME: 11:35 AM PATIENT IDENTITY VERIFICATION COMPLETED USING TWO (2) IDENTIFIERS: Name and Date of confirmed by patient verbally. FALL SCREENING: Has the patient had 2 falls in the last year or 1 fall with injury or currently using an Ambulatory Assistive Device (Walker, Cane, Wheelchair, Crutches, etc.)? Yes, Patient High Risk for Falls What interventions were put in place to prevent falls during this visit? Offered Assistance with Transfers/Clothing, Instructed Patient to Remain Seated (Not on Exam Table) Until Exam, and did sitting in chair PATIENT GENDER DATA: Female. status: : No status: NO. PATIENT RELEVANT IMPLANT DATA REVIEWED: Not Applicable RADIOLOGY DEPARTMENT: General X-ray: Exam(s) Completed: Chest X-Ray PERIPHERAL IV DATA: Not applicable SIGNED BY: RT Jeremy(R) October 07, 2021 11:35 AM [facility] 10-07-2021 Note HNO ID: [id number] Author: Rocio Zamora APRN.ASSOCIATE MERCHANDISER Service: ? Author Type: Nurse Practitioner Type: Progress Notes Filed: 10/07/2021 1:42 PM Note Text: This note was created using LogicMonitor[employer]. Subjective Deana Roman is a 80 year old female. 80 year old female with PMH RA presents for illness. Acute onset of symptoms was around 09/30/21. +sore throat + cough Seen here on 10/03/21. Had negative COVID at that time (she does have history of having COVID in July/August of this year) Was prescribed Tessalon Perles Presents with worsening symptoms +fever + fatigue + achy +cough Denies hemoptysis. 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 No foreign language instructor was used. Cough This is a new problem. The current episode started more than 1 week ago. The problem occurs constantly. The problem has been gradually worsening. The cough is Non-productive. The maximum temperature recorded prior to her arrival was 102 to 102.9 F. Associated symptoms include chills, sweats, headaches, rhinorrhea, sore throat, myalgias, shortness of breath and wheezing. Pertinent negatives include no chest pain, no weight loss, no ear congestion, no ear pain and no eye redness. Treatments tried: Tessalon Perles. The treatment provided no relief. She is not a smoker. Her past medical history does not include bronchitis, pneumonia, bronchiectasis, COPD, emphysema or asthma. PAST MEDICAL HISTORY Diagnosis Date Female bladder prolapse 02/2011 Rheumatoid arthritis involving multiple sites with positive rheumatoid factor (HCC) 08/30/2016 PAST SURGICAL HISTORY Procedure Laterality Date HYSTERECTOMY HX N/A ALLERGIES Macrobid [Nitrofurantoin Monohyd/M-Cryst] MEDICATIONS golimumab (SIMPONI ARIA) infusionInject intravenously.Disp: Rfl: benzonatate (TESSALON PERLE) 100 mg capsuleTake 1 capsule by mouth every 8 hours as needed for cough for up to 15 days.Disp: 30 capsuleRfl: 0 methotrexate 2.5 mg tabletTake 10 mg by mouth one time only.Disp: Rfl: No family history on file. Social History Tobacco Use Smoking status: Never Smokeless tobacco: Never Review of Systems Constitutional: Positive for chills, fatigue and fever. Negative for activity change, appetite change, diaphoresis and weight loss. HENT: Positive for congestion, rhinorrhea, sinus pressure, sinus pain and sore throat. Negative for ear pain. Eyes: Negative for pain, discharge, redness and itching. Respiratory: Positive for cough, shortness of breath and wheezing. Negative for apnea, choking and chest tightness. Cardiovascular: Negative for chest pain, palpitations and leg swelling. Gastrointestinal: Negative for abdominal pain, diarrhea, nausea and vomiting. Musculoskeletal: Positive for myalgias. Negative for arthralgias and back pain. Skin: Negative for color change, pallor and rash. Allergic/Immunologic: Positive for immunocompromised state. Negative for environmental allergies and food allergies. Neurological: Positive for headaches. Negative for dizziness and facial asymmetry. Hematological: Negative for adenopathy. Does not bruise/bleed easily. Psychiatric/Behavioral: Negative for agitation and behavioral problems. Objective BP 148/62 Pulse (!) 125 Temp (!) 39.7 ?C (103.5 ?F) Resp 20 Wt 69.4 kg (153 lb) SpO2 90% With deep breaths and coughing patient noted to be 92 to 93 percent Physical Exam Vitals and nursing note reviewed. Constitutional: General: She is not in acute distress. Appearance: Normal appearance. She is normal weight. She is ill-appearing. She is not toxic-appearing or diaphoretic. HENT: Head: Normocephalic and atraumatic. Right Ear: Ear canal and external ear normal. Left Ear: Ear canal and external ear normal. Nose: Nose normal. No congestion or rhinorrhea. Mouth/Throat: Mouth: Mucous membranes are moist. Pharynx: No oropharyngeal exudate or posterior oropharyngeal erythema. Eyes: General: Right eye: No discharge. Left eye: No discharge. Extraocular Movements: Extraocular movements intact. Conjunctiva/sclera: Conjunctivae normal. Pupils: Pupils are equal, round, and reactive to light. Cardiovascular: Rate and Rhythm: Regular rhythm. Tachycardia present. Pulses: Normal pulses. Heart sounds: Normal heart sounds. No murmur heard. No friction rub. Pulmonary: Effort: Pulmonary effort is normal. No respiratory distress. Breath sounds: Normal breath sounds. No stridor. No wheezing, rhonchi or rales. Comments: Harsh deep cough with auscultation. Tightness noted. Chest: Chest wall: No tenderness. Abdominal: General: Abdomen is flat. There is no distension. Palpations: Abdomen is soft. There is no mass. Tenderness: There is no abdominal tenderness. There is no right CVA tenderness, left CVA tenderness, guarding or rebound. Hernia: No hernia is present. Musculoskeletal: General: No swelling, (more content not included)... [facility] 10-07-2021 Instructions Rocio Zamora APRN.[facility] - 10/07/2021 12:16 PM EDT GENERAL INFORMATION: Pneumonia is a lung infection caused by bacteria, viruses, or bacteria-like germs. It usually cannot be spread to other people. INSTRUCTIONS: 1. If you are given a prescription for antibiotics, take them as ordered by your doctor until they are all gone. 2. Use a cool-mist humidifier or vaporizer to increase air moisture. This will make it easier for you to breathe. Do not use hot steam. 3. Rest in until your temperature is normal (98.6 F or 37 C) and your chest pain and shortness of breath are gone. 4. Slowly restart your normal activities. You may feel weak and tired for up to six weeks. 5. Drink at least one glass of water or other liquid every hour. This will help thin sputum and make it easier to cough up. 6. If you have chest pain, applying a heating pad or warm compresses for 10 to 20 minutes several times a day to the painful area may lessen the pain. 7. Take several deep breaths and then cough frequently during the day. This will help get rid of the infection. 8. You may take medicines that you can buy without a prescription to treat pain and fever. Use cough medicine only if absolutely necessary as coughing helps clear the infection. CONTACT YOUR DOCTOR IF: 1. Your temperature is over 102 F (39 C). 2. Your chest pain, fever or chills do not get better with medicine in 2-3 days. 3. You develop nausea, vomiting or diarrhea. 4. You are coughing up large amounts of bloody sputum. 5. You have any problems that may be related to the medicine that you are taking (such as rash, itching, swelling, or stomach pain). RETURN TO THE EMERGENCY DEPARTMENT IF: 1. You have a lot of trouble breathing or you have dark or bluish fingernails, toenails, or skin. 2. You have a severe headache, neck stiffness, or feel confused. documented in this encounter [facility] 10-07-2021 Nurse Note Pt given albuterol treatment O2 before 92. After treatment O2 was 90. Christen Pacheco MA documented in this encounter [facility] 10-07-2021 History of Presen t illness Narrative Radiology Service Progress Note PATIENT NAME: Deana Roman DATE OF SERVICE: October 07, 2021 TIME: 11:35 AM PATIENT IDENTITY VERIFICATION COMPLETED USING TWO (2) IDENTIFIERS: Name and Date of confirmed by patient verbally. FALL SCREENING: Has the patient had 2 falls in the last year or 1 fall with injury or currently using an Ambulatory Assistive Device (Walker, Cane, Wheelchair, Crutches, etc.)? Yes, Patient High Risk for Falls What interventions were put in place to prevent falls during this visit? Offered Assistance with Transfers/Clothing, Instructed Patient to Remain Seated (Not on Exam Table) Until Exam, and did sitting in chair PATIENT GENDER DATA: Female. status: : No status: NO. PATIENT RELEVANT IMPLANT DATA REVIEWED: Not Applicable RADIOLOGY DEPARTMENT: General X-ray: Exam(s) Completed: Chest X-Ray PERIPHERAL IV DATA: Not applicable SIGNED BY: RT Jeremy(R) October 07, 2021 11:35 AM documented in this encounter [facility] 10-07-2021 History of Presen t illness Narrative This note was created using Advaction. Subjective Deana Roman is a 80 year old female. 80 year old female with PMH RA presents for illness. Acute onset of symptoms was around 09/30/21. +sore throat + cough Seen here on 10/03/21. Had negative COVID at that time (she does have history of having COVID in July/August of this year) Was prescribed Tessalon Perles Presents with worsening symptoms +fever + fatigue + achy +cough Denies hemoptysis. 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 No foreign language instructor was used. Cough This is a new problem. The current episode started more than 1 week ago. The problem occurs constantly. The problem has been gradually worsening. The cough is Non-productive. The maximum temperature recorded prior to her arrival was 102 to 102.9 F. Associated symptoms include chills, sweats, headaches, rhinorrhea, sore throat, myalgias, shortness of breath and wheezing. Pertinent negatives include no chest pain, no weight loss, no ear congestion, no ear pain and no eye redness. Treatments tried: Tessalon Perles. The treatment provided no relief. She is not a smoker. Her past medical history does not include bronchitis, pneumonia, bronchiectasis, COPD, emphysema or asthma. PAST MEDICAL HISTORY Diagnosis Date Female bladder prolapse 02/2011 Rheumatoid arthritis involving multiple sites with positive rheumatoid factor (HCC) 08/30/2016 PAST SURGICAL HISTORY Procedure Laterality Date HYSTERECTOMY HX N/A ALLERGIES Macrobid [Nitrofurantoin Monohyd/M-Cryst] MEDICATIONS golimumab (SIMRICHY WHIPPLEA) infusion^Inject intravenously.^Disp: ^Rfl: benzonatate (TESSALON PERLE) 100 mg capsule^Take 1 capsule by mouth every 8 hours as needed for cough for up to 15 days.^Disp: 30 capsule^Rfl: 0 methotrexate 2.5 mg tablet^Take 10 mg by mouth one time only.^Disp: ^Rfl: No family history on file. Social History Tobacco Use Smoking status: Never Smokeless tobacco: Never Review of Systems Constitutional: Positive for chills, fatigue and fever. Negative for activity change, appetite change, diaphoresis and weight loss. HENT: Positive for congestion, rhinorrhea, sinus pressure, sinus pain and sore throat. Negative for ear pain. Eyes: Negative for pain, discharge, redness and itching. Respiratory: Positive for cough, shortness of breath and wheezing. Negative for apnea, choking and chest tightness. Cardiovascular: Negative for chest pain, palpitations and leg swelling. Gastrointestinal: Negative for abdominal pain, diarrhea, nausea and vomiting. Musculoskeletal: Positive for myalgias. Negative for arthralgias and back pain. Skin: Negative for color change, pallor and rash. Allergic/Immunologic: Positive for immunocompromised state. Negative for environmental allergies and food allergies. Neurological: Positive for headaches. Negative for dizziness and facial asymmetry. Hematological: Negative for adenopathy. Does not bruise/bleed easily. Psychiatric/Behavioral: Negative for agitation and behavioral problems. Objective BP 148/62 Pulse (!) 125 Temp (!) 39.7 C (103.5 F) Resp 20 Wt 69.4 kg (153 lb) SpO2 90% With deep breaths and coughing patient noted to be 92 to 93 percent Physical Exam Vitals and nursing note reviewed. Constitutional: General: She is not in acute distress. Appearance: Normal appearance. She is normal weight. She is ill-appearing. She is not toxic-appearing or diaphoretic. HENT: Head: Normocephalic and atraumatic. Right Ear: Ear canal and external ear normal. Left Ear: Ear canal and external ear normal. Nose: Nose normal. No congestion or rhinorrhea. Mouth/Throat: Mouth: Mucous membranes are moist. Pharynx: No oropharyngeal exudate or posterior oropharyngeal erythema. Eyes: General: Right eye: No discharge. Left eye: No discharge. Extraocular Movements: Extraocular movements intact. Conjunctiva/sclera: Conjunctivae normal. Pupils: Pupils are equal, round, and reactive to light. Cardiovascular: Rate and Rhythm: Regular rhythm. Tachycardia present. Pulses: Normal pulses. Heart sounds: Normal heart sounds. No murmur heard. No friction rub. Pulmonary: Effort: Pulmonary effort is normal. No respiratory distress. Breath sounds: Normal breath sounds. No stridor. No wheezing, rhonchi or rales. Comments: Harsh deep cough with auscultation. Tightness noted. Chest: Chest wall: No tenderness. Abdominal: General: Abdomen is flat. There is no distension. Palpations: Abdomen is soft. There is no mass. Tenderness: There is no abdominal tenderness. There is no right CVA tenderness, left CVA tenderness, guarding or rebound. Hernia: No hernia is present. Musculoskeletal: General: No swelling, tenderness, deformity or signs of injury. Normal range of motion. Cervical back: Normal range of motion and neck supple. No rigidity. Right lower leg: No edema. Left lower leg: No edema. Lymphadenopathy: Cervical: No cervical adenopathy. Skin: General: Skin is warm and dry. Capillary Refill: Capillary refill takes less than 2 seconds. Coloration: Skin is not jaundiced or pale. Findings: No bruising, erythema, lesion or rash. Neurological: General: No focal deficit present. Mental Status: She is alert and oriented to person, place, and time. Cranial Nerves: No cranial nerve deficit. Sensory: No sensory deficit. Motor: No weakness. Coordination: Coordination normal. Gait: Gait normal. Psychiatric: Mood and Affect: Mood normal. Behavior: Behavior normal. Thought Content: Thought content normal. Judgment: Judgment normal. Rocio Zamora APRN.[employer]CH[employer] ASSESSMENT/PLAN: 1. Acute cough - ICD9: 786.2, ICD10: R05.1 (primary diagnosis) Ongoing for a week Progressively worsening. +fever Denies red flags, Given her age and along her vitals she truly looks good on presentation today. Sense of humor intact. - XR CHEST 2V FRONTAL/LAT - ACETAMINOPHEN 500 MG TABLET - ALBUTEROL SULFATE 2.5 MG/3 ML (0.083 %) SOLUTION FOR NEBULIZATION-provided 2. Bacterial pneumonia - ICD9: 482.9, ICD10: J15.9 CXR reveals bilateral infiltrates WIll cover with Doxycyline She was encouraged to follow up with her PCP Discussed red flags 3. Fever, unspecified fever cause - ICD9: 780.60, ICD10: R50.9 Tylenol provided here in clinic +response Heart rate decreased to 109. Temperature 101.7 Pulse ox 92 percent accompanies patient Discussed red flags and reasons to seek ED COVID obtained Rocio Zamora APRN.ELISA documented in this encounter [facility] 10-04-2021 Miscellaneous Notes Patient given results and verbalized understanding of instructions given. Karli Nixon Please inform patient of negative COVID. Continue treatment plan discussed at time of discharge. Follow up with PCP documented in this encounter [facility] 10-03-2021 Note HNO ID: [id number] Author: Gary Khan MD Service: ? Author Type: Physician Type: Progress Notes Filed: 10/03/2021 2:38 PM Note Text: Patient presents with: Sore Throat: Sore throat x3 days HPI: Feeling sick for 3-4 days. Positive symptoms: deep Cough, bad Sore throat, Earache, Post nasal drainage, hoarse voice, decreased appetite, Negative symptoms: Shortness of breath, Wheezing, Chest pain, Fever, Vomiting, Diarrhea, OTC: delsym, tylenol arthritis Had COVID 2 months ago without symptoms. Has had COVID vaccine. PAST MEDICAL HISTORY Diagnosis Date Female bladder prolapse 02/2011 Rheumatoid arthritis involving multiple sites with positive rheumatoid factor (HCC) 08/30/2016 MEDICATIONS: Current Outpatient Medications Medication Sig golimumab (SIMPONI ARIA) infusion Inject intravenously. methotrexate 2.5 mg tablet Take 10 mg by mouth one time only. No current facility-administered medications for this visit. ALLERGIES: ALLERGIES Allergen Reactions Macrobid [Nitrofura* Shortness of Breath, Other: See Comments Symptoms of heart attack VITALS: BP 110/64 Pulse 96 Temp 37.3 ?C (99.1 ?F) Resp 18 Wt 73.8 kg (162 lb 12.8 oz) SpO2 97% PHYSICAL EXAM: GEN: mildly ill appearing HEENT: PERRL, EOMI, conjunctiva clear Ears: hearing aids removed. canals clear. TMs without erythema, bulge, or effusion Sinuses: non-tender frontal sinus, non-tender maxillary sinuses Throat: moist mucous membranes, mild pharyneal erythema, no exudate Neck: supple, no thyromegaly, no lymphadenopathy, hoarse voice HEART: regular rate and rhythm, no murmurs LUNGS: clear to auscultation, no wheezes or crackles, no increased WOB; deep raspy cough. ASSESSMENT/PLAN: 1. Sore throat - ICD9: 462, ICD10: J02.9 (primary diagnosis) - STREP A MOLECULAR (POC) - negative - 2019 CORONAVIRUS 2. Acute cough - ICD9: 786.2, ICD10: R05.1 - suspect viral URI, differential includes COVID-19. - Discussed supportive care treatment with home isolation, rest, cough medicine, and analgesia. - Red flags to seek further treatment include chest pain, shortness of breath, and lethargy; in the ER if severe. - BENZONATATE 100 MG CAPSULE Gary Khan MD [facility] 10-03-2021 History of Presen t illness Narrative Patient presents with: Sore Throat: Sore throat x3 days HPI: Feeling sick for 3-4 days. Positive symptoms: deep Cough, bad Sore throat, Earache, Post nasal drainage, hoarse voice, decreased appetite, Negative symptoms: Shortness of breath, Wheezing, Chest pain, Fever, Vomiting, Diarrhea, OTC: delsym, tylenol arthritis Had COVID 2 months ago without symptoms. Has had COVID vaccine. PAST MEDICAL HISTORY Diagnosis Date Female bladder prolapse 02/2011 Rheumatoid arthritis involving multiple sites with positive rheumatoid factor (HCC) 08/30/2016 MEDICATIONS: Current Outpatient Medications Medication Sig golimumab (SIMPONI ARIA) infusion Inject intravenously. methotrexate 2.5 mg tablet Take 10 mg by mouth one time only. No current facility-administered medications for this visit. ALLERGIES: ALLERGIES Allergen Reactions Macrobid [Nitrofura* Shortness of Breath, Other: See Comments Symptoms of heart attack VITALS: BP 110/64 Pulse 96 Temp 37.3 C (99.1 F) Resp 18 Wt 73.8 kg (162 lb 12.8 oz) SpO2 97% PHYSICAL EXAM: GEN: mildly ill appearing HEENT: PERRL, EOMI, conjunctiva clear Ears: hearing aids removed. canals clear. TMs without erythema, bulge, or effusion Sinuses: non-tender frontal sinus, non-tender maxillary sinuses Throat: moist mucous membranes, mild pharyneal erythema, no exudate Neck: supple, no thyromegaly, no lymphadenopathy, hoarse voice HEART: regular rate and rhythm, no murmurs LUNGS: clear to auscultation, no wheezes or crackles, no increased WOB; deep raspy cough. ASSESSMENT/PLAN: 1. Sore throat - ICD9: 462, ICD10: J02.9 (primary diagnosis) - STREP A MOLECULAR (POC) - negative - 2019 CORONAVIRUS 2. Acute cough - ICD9: 786.2, ICD10: R05.1 - suspect viral URI, differential includes COVID-19. - Discussed supportive care treatment with home isolation, rest, cough medicine, and analgesia. - Red flags to seek further treatment include chest pain, shortness of breath, and lethargy; in the ER if severe. - BENZONATATE 100 MG CAPSULE Gary Khan MD documented in this encounter [facility] 09-02-2021 Miscellaneous Notes Phone call placed patient advised (see prior provider encounter) Patient verbalized understanding, agreed with plan of care. Jessica Mendez LPN Patient is positive for covid please notify and tell patient to follow current cdc guidelines. 5 days of quarantine and then 5 more days of masking. Follow up if symptoms worsen. Thank you negative for flu documented in this encounter [facility] 09-01-2021 Influenza virus A and B RNA and SARS-CoV-2 (COVID-19) N gene panel JEANMARIE+probe (Resp) COVID 19 RESULT: SARS-CoV-2 (Agent of COVID-19) Detected by RT-PCR or equivalent method. taylor [id number]_[employer] (DENIZ)_EUA This test was developed and its performance characteristics determined by [facility]'s [facility] [place]. This test has been authorized by FDA under an Emergency Use Authorization (EUA). This test has been validated in accordance with the FDA's Guidance Document Policy for Diagnostics Testing in Laboratories Certified to Perform High Complexity Testing under CLIA prior to Emergency use Authorization for Coronavirus Disease 2019 during the Public Health Emergency issued on April 19, 2019. Test performed by [facility], [facility] [place], [address] [place] [address]. INFLUENZA A PCR: Negative for Influenza A by RT-PCR INFLUENZA B PCR: Negative for Influenza B by RT-PCR [facility] Comment on above: Performed By: #### [id number] ####[facility] [id number] [address] [place] 09-01-2021 Note HNO ID: [id number] Author: Rocio Zamora APRN.ASSOCIATE MERCHANDISER Service: ? Author Type: Nurse Practitioner Type: Progress Notes Filed: 09/01/2021 10:45 AM Note Text: This note was created using LogicMonitor[employer]. Subjective Deana Roman is a 80 year old female. 80 year old female with PMH RA presents with I have COVID Acute onset of symptoms is unsure per patient. Endorses that last Sunday she felt super fatigued and tired. +body aches Lasted 24 hours, and I was okay Her tested positive for COVID this past Sunday. She took a home test Sunday and was positive. She denies that she is experiencing symptoms presently Denies fever or chills. Denies URI sx Mild cough States that she is to go shopping today and a picnic this weekend when can I go out and about The history is provided by the patient. No foreign language instructor was used. Cough This is a new problem. The current episode started more than 2 days ago. The problem has not changed since onset.The cough is non-productive. There has been no fever. Pertinent negatives include no chest pain, no chills, no sweats, no weight loss, no ear congestion, no ear pain, no headaches, no rhinorrhea, no sore throat, no myalgias, no shortness of breath, no wheezing and no eye redness. She has tried nothing for the symptoms. The treatment provided no relief. She is not a smoker. Her past medical history does not include bronchitis, pneumonia, bronchiectasis, COPD, emphysema or asthma. PAST MEDICAL HISTORY Diagnosis Date - Female bladder prolapse 02/2011 - Rheumatoid arthritis involving multiple sites with positive rheumatoid factor (HCC) 08/30/2016 PAST SURGICAL HISTORY Procedure Laterality Date - HYSTERECTOMY HX N/A ALLERGIES Macrobid [Nitrofurantoin Monohyd/M-Cryst] MEDICATIONS methotrexate 2.5 mg tablet Take 10 mg by mouth one time only. inFLIXimab (REMICADE) 100 mg injection Inject 100 mg intravenously every 3 months. No family history on file. Social History Tobacco Use - Smoking status: Never Smoker - Smokeless tobacco: Never Used Substance Use Topics - Alcohol use: Not on file - Drug use: Not on file Review of Systems Constitutional: Negative for chills and weight loss. HENT: Negative for congestion, dental problem, ear pain, rhinorrhea and sore throat. Eyes: Negative for redness. Respiratory: Positive for cough. Negative for apnea, chest tightness, shortness of breath and wheezing. Cardiovascular: Negative for chest pain, palpitations and leg swelling. Gastrointestinal: Negative for abdominal pain, diarrhea, nausea and vomiting. Musculoskeletal: Negative for arthralgias, back pain, gait problem and myalgias. Skin: Negative for color change, pallor, rash and wound. Allergic/Immunologic: Negative for environmental allergies, food allergies and immunocompromised state. Neurological: Negative for dizziness, facial asymmetry and headaches. Hematological: Negative for adenopathy. Does not bruise/bleed easily. Psychiatric/Behavioral: Negative for agitation and behavioral problems. Objective BP 148/82 Pulse 70 Temp 36.8 ?C (98.2 ?F) Resp 21 Wt 72.5 kg (159 lb 12.8 oz) SpO2 97% Physical Exam Vitals and nursing note reviewed. Constitutional: General: She is not in acute distress. Appearance: Normal appearance. She is normal weight. She is not ill-appearing, toxic-appearing or diaphoretic. HENT: Head: Normocephalic and atraumatic. Right Ear: Ear canal and external ear normal. Left Ear: Ear canal and external ear normal. Nose: Nose normal. No congestion or rhinorrhea. Mouth/Throat: Mouth: Mucous membranes are moist. Pharynx: No oropharyngeal exudate or posterior oropharyngeal erythema. Eyes: General: Right eye: No discharge. Left eye: No discharge. Extraocular Movements: Extraocular movements intact. Conjunctiva/sclera: Conjunctivae normal. Pupils: Pupils are equal, round, and reactive to light. Cardiovascular: Rate and Rhythm: Normal rate and regular rhythm. Pulses: Normal pulses. Heart sounds: Normal heart sounds. No murmur heard. No friction rub. Pulmonary: Effort: Pulmonary effort is normal. No respiratory distress. Breath sounds: Normal breath sounds. No stridor. No wheezing, rhonchi or rales. Chest: Chest wall: No tenderness. Abdominal: General: Abdomen is flat. There is no distension. Palpations: Abdomen is soft. There is no mass. Tenderness: There is no abdominal tenderness. There is no right CVA tenderness, left CVA tenderness, guarding or rebound. Hernia: No hernia is present. Musculoskeletal: General: No swelling, tenderness, deformity or signs of injury. Normal range of motion. Cervical back: Normal range of motion and neck supple. No rigidity. Right lower leg: No edema. Left lower leg: No edema. Lymphadenopathy: Cervical: No cervical adenopathy. Skin: General: Skin is warm and dry. Coloration: Skin is not jaundiced or p (more content not included)... [facility] 09-01-2021 Instructions Rocio Zamora APRN.[facility] - 09/01/2021 10:14 AM EDT Beginning Home Isolation Isolation is used to separate people infected with SARS-CoV-2, the virus that causes COVID-19, from people who are not infected. People who are in isolation should stay home until it s safe for them to be around others. In the home, anyone sick or infected should separate themselves from others by staying in a specific sick room or area and using a separate bathroom (if available). Isolation or Quarantine: What's the difference? Quarantine keeps someone who might have been exposed to the virus away from others. Isolation keeps someone who is infected with the virus away from others, even in their home. Who needs to isolate People who have COVID-19 People who have symptoms of COVID-19 and are able to recover at home People who have no symptoms (are asymptomatic) but have tested positive for infection with SARS-CoV-2 Steps to take Stay home except to get medical care Monitor your symptoms. Stay in a separate room from other household members, if possible Use a separate bathroom, if possible Avoid contact with other members of the household and pets Don t share personal household items, like cups, towels, and utensils Wear a mask when around other people, if you are able to When to seek emergency medical attention Look for emergency warning signs* for COVID-19. If someone is showing any of these signs, seek emergency medical care immediately: Trouble breathing Persistent pain or pressure in the chest New confusion Inability to wake or stay awake Bluish lips or face *This list is not all possible symptoms. Please call your medical provider for any other symptoms that are severe or concerning to you. Call 911 or call ahead to your local emergency facility: Notify the tie in machine operator that you are seeking care for someone who has or may have COVID-19. Ending Home Isolation - When you can be around others after you had or likely had COVID-19 When you can be around others after you had or likely had COVID-19 If You Test Positive for COVID-19 (Isolation) Everyone, regardless of vaccination status: 1. Stay home for 5 days. Note: Day 0 is your first day of symptoms or the date of collection of a positive viral test if no symptoms. Day 1 is the first full day after symptoms developed or test specimen was collected. 2. If you have no symptoms or your symptoms are resolving after 5 days, you can leave your house. 3. Continue to wear a mask around others for 5 additional days. If you have a fever, continue to stay home until your fever resolves, even if it is longer than 5 days. If You Were Exposed to Someone with COVID-19 (Quarantine) If you: 1. Have been boosted OR 2. Completed the primary series of Pfizer or Moderna vaccine within the last 6 months OR 3. Completed the primary series of J&J vaccine within the last 2 months THEN: 1. Wear a mask around others for 10 days. 2. Test on day 5, if possible. If you develop symptoms get a test and stay home. If You Were Exposed to Someone with COVID-19 (Quarantine) If you: 1. Completed the primary series of Pfizer or Moderna vaccine over 6 months ago and are not boosted OR 2. Completed the primary series of J&J over 2 months ago and are not boosted OR 3. Are unvaccinated THEN: 1. Stay home for 5 days. After that continue to wear a mask around others for 5 additional days. 2. If you can't quarantine you must wear a mask for 10 days. 3. Test on day 5 if possible. If you develop symptoms get a test and stay home. I had COVID-19 or I tested positive for COVID-19 and I have a weakened immune system If you have a weakened immune system (immunocompromised) due to a health condition or medication, you might need to stay home and isolate longer than 10 days. Talk to your healthcare provider for more information. Your doctor may work with an infectious disease expert at your local health department to determine when you can be around others. documented in this encounter [facility] 09-01-2021 History of Presen t illness Narrative This note was created using Adv[employer]. Subjective Deana Roman is a 80 year old female. 80 year old female with PMH RA presents with I have COVID Acute onset of symptoms is unsure per patient. Endorses that last Sunday she felt super fatigued and tired. +body aches Lasted 24 hours, and I was okay Her tested positive for COVID this past Sunday. She took a home test Sunday and was positive. She denies that she is experiencing symptoms presently Denies fever or chills. Denies URI sx Mild cough States that she is to go shopping today and a picnic this weekend when can I go out and about The history is provided by the patient. No foreign language instructor was used. Cough This is a new problem. The current episode started more than 2 days ago. The problem has not changed since onset.The cough is non-productive. There has been no fever. Pertinent negatives include no chest pain, no chills, no sweats, no weight loss, no ear congestion, no ear pain, no headaches, no rhinorrhea, no sore throat, no myalgias, no shortness of breath, no wheezing and no eye redness. She has tried nothing for the symptoms. The treatment provided no relief. She is not a smoker. Her past medical history does not include bronchitis, pneumonia, bronchiectasis, COPD, emphysema or asthma. PAST MEDICAL HISTORY Diagnosis Date Female bladder prolapse 02/2011 Rheumatoid arthritis involving multiple sites with positive rheumatoid factor (HCC) 08/30/2016 PAST SURGICAL HISTORY Procedure Laterality Date HYSTERECTOMY HX N/A ALLERGIES Macrobid [Nitrofurantoin Monohyd/M-Cryst] MEDICATIONS methotrexate 2.5 mg tablet Take 10 mg by mouth one time only. inFLIXimab (REMICADE) 100 mg injection Inject 100 mg intravenously every 3 months. No family history on file. Social History Tobacco Use Smoking status: Never Smoker Smokeless tobacco: Never Used Substance Use Topics Alcohol use: Not on file Drug use: Not on file Review of Systems Constitutional: Negative for chills and weight loss. HENT: Negative for congestion, dental problem, ear pain, rhinorrhea and sore throat. Eyes: Negative for redness. Respiratory: Positive for cough. Negative for apnea, chest tightness, shortness of breath and wheezing. Cardiovascular: Negative for chest pain, palpitations and leg swelling. Gastrointestinal: Negative for abdominal pain, diarrhea, nausea and vomiting. Musculoskeletal: Negative for arthralgias, back pain, gait problem and myalgias. Skin: Negative for color change, pallor, rash and wound. Allergic/Immunologic: Negative for environmental allergies, food allergies and immunocompromised state. Neurological: Negative for dizziness, facial asymmetry and headaches. Hematological: Negative for adenopathy. Does not bruise/bleed easily. Psychiatric/Behavioral: Negative for agitation and behavioral problems. Objective BP 148/82 Pulse 70 Temp 36.8 C (98.2 F) Resp 21 Wt 72.5 kg (159 lb 12.8 oz) SpO2 97% Physical Exam Vitals and nursing note reviewed. Constitutional: General: She is not in acute distress. Appearance: Normal appearance. She is normal weight. She is not ill-appearing, toxic-appearing or diaphoretic. HENT: Head: Normocephalic and atraumatic. Right Ear: Ear canal and external ear normal. Left Ear: Ear canal and external ear normal. Nose: Nose normal. No congestion or rhinorrhea. Mouth/Throat: Mouth: Mucous membranes are moist. Pharynx: No oropharyngeal exudate or posterior oropharyngeal erythema. Eyes: General: Right eye: No discharge. Left eye: No discharge. Extraocular Movements: Extraocular movements intact. Conjunctiva/sclera: Conjunctivae normal. Pupils: Pupils are equal, round, and reactive to light. Cardiovascular: Rate and Rhythm: Normal rate and regular rhythm. Pulses: Normal pulses. Heart sounds: Normal heart sounds. No murmur heard. No friction rub. Pulmonary: Effort: Pulmonary effort is normal. No respiratory distress. Breath sounds: Normal breath sounds. No stridor. No wheezing, rhonchi or rales. Chest: Chest wall: No tenderness. Abdominal: General: Abdomen is flat. There is no distension. Palpations: Abdomen is soft. There is no mass. Tenderness: There is no abdominal tenderness. There is no right CVA tenderness, left CVA tenderness, guarding or rebound. Hernia: No hernia is present. Musculoskeletal: General: No swelling, tenderness, deformity or signs of injury. Normal range of motion. Cervical back: Normal range of motion and neck supple. No rigidity. Right lower leg: No edema. Left lower leg: No edema. Lymphadenopathy: Cervical: No cervical adenopathy. Skin: General: Skin is warm and dry. Coloration: Skin is not jaundiced or pale. Findings: No bruising, erythema, lesion or rash. Neurological: General: No focal deficit present. Mental Status: She is alert and oriented to person, place, and time. Cranial Nerves: No cranial nerve deficit. Sensory: No sensory deficit. Motor: No weakness. Coordination: Coordination normal. Gait: Gait normal. Psychiatric: Mood and Affect: Mood normal. Behavior: Behavior normal. Thought Content: Thought content normal. Judgment: Judgment normal. Assessment and Plan ASSESSMENT/PLAN: 1. Suspected COVID-19 virus infection - ICD9: V01.79, ICD10: Z20.822 States symptoms last Sunday positive this past Sunday feel fine Reviewed and printed CDC recommendations related to COVID OTC supportive Follow up with PCP - COVID WITH FLUA+B, ROUTINE Rocio Zamora APRN.CNP documented in this encounter [facility] Evaluation note No assessment inform ation available [facility] Work Phone: Evaluation note Diagnosis Suspected COVID-19 virus infection- Primary documented in this encounter [facility] note* Diagnosis Sore throat- Primary Acute pharyngitis Acute cough documented in this encounter [facility] note* Diagnosis Acute cough- Primary Bacterial pneumonia Bacterial pneumonia, unspecified Fever, unspecified fever cause documented in this encounter [facility] note* Diagnosis Acute cough- Primary documented in this encounter [facility] note* Diagnosis Onset Date Resolution Status Pneumonia acute [facility] Work Phone: Evaluation note* Diagnosis Acute cough [facility]arrative[facility]No reason for referral information availableWCleveland [facility] Work Phone: Summary Purpose Family History No Family History Records FoundNo Family History Records FoundNo Family History Records Found Advance Directives Advance Directive Response Recorded Date/ Time Advance Directives Yes October 9:56am Living Will Yes November 04, 2015 9:56am Power of Chassis Mechanic Yes October 9:56am Advance Directive Response Recorded Date/ Time Advance Directives Yes October 9:56am Advance Directive Response Recorded Date/ Time Advance Directives Yes July 22 10:39am Chief Complaint and Reason for Visit Chief Complaint S/O-PAIN- COPY PCP SUSAN SANCHEZ Chief Complaint S/O-PAIN- COPY PCP SIMPONDavid SANCHEZ S/O- PAIN Chief Complaint S/O-PAIN- COPY PCP SUSAN SANCHEZ S/O- PAIN CHEST XRAY/PNEUMONIA xray SUSAN SANCHEZ Reason for Visit Pneumonia Chief Complaint PAIN- COPY PCP Chief Complaint PAIN- COPY PCP SUSAN SANCHEZ Chief Complaint Admit Date Pain July 16, 2024 10:07 am Chief Complaint Admit Date Pain July 16, 2024 10:07 am XRAY July 22, 2024 10:40 am Health Concerns Infection Onset Date Last Indicated Resolved Time COVID-19 Rule-Out 09/01/2021 09/01/2021 Infection Onset Date Last Indicated Resolved Time COVID-19 Confirmed 09/01/2021 09/01/2021 Infection Onset Date Last Indicated Resolved Time COVID-19 Rule-Out 10/03/2021 10/03/2021 Infection Onset Date Last Indicated Resolved Time COVID-19 Rule-Out 10/03/2021 10/03/2021 10/04/2021 3:42 AM EDT Infection Onset Date Last Indicated Resolved Time COVID-19 Rule-Out 10/07/2021 10/07/2021 Infection Onset Date Last Indicated Resolved Time COVID-19 Rule-Out 10/07/2021 10/07/2021 10/08/2021 2:15 AM EDT Medications Administered Section Inactive Administered Medications - up to 3 most recent administrations Medication Order MAR Action Action Date Dose Rate Site acetaminophen 1,000 mg tab(s) (TYLENOL) 1,000 mg, ORAL, ONCE, 1 dose, On Sun10/07/21 at 1130, If ordered PRN for pain, patient/guardian may elect to receive this medication for higher pain levels INSTEAD of the opioid, if preferred: Yes Given 10/07/2021 11:22 AM EDT 1,000 mg albuterol 2.5 mg /3 mL (0.083 %) 2.5 mg (PROVENTIL) 2.5 mg, INHALATION, ONCE, 1 dose, On Sun10/07/21 at 1130 Given 10/07/2021 11:24 AM EDT 2.5 mg Additional Source Comments INFORMATION SOURCE (unrecogn ized section and content) DATE CREATED AUTHOR 08/15/2017 [facility] DATE CREATED AUTHOR AUTHOR'S ORGANIZ ATION 10/21/2021 [facility] DATE CREATED AUTHOR AUTHOR'S ORGANIZ ATION 07/22/2024 [facility] Goals (unrecognized section and content) Goals may be documented in a n alternate sectionGoals may be documented in an alternate sectionGoals may be documented in an alternate sectionGoals may be documented in an alternate sectionGoals may be documented in an alternate sectionGoals may be documented in an alternate sectionGoals may be documented in an alternate sectionGoals may be documented in an alternate sectionGoals may be documented in an alternate section Source Comments (unrecognize d section and content) In the event this informatio n is protected by the Federal Confidentiality of Alcohol and Drug Abuse Patient Records regulations: The Federal rules restrict any use of the information to criminally investigate or prosecute any alcohol or drug abuse patient.[facility] the event this information is protected by the Federal Confidentiality of Alcohol and Drug Abuse Patient Records regulations: The Federal rules restrict any use of the information to criminally investigate or prosecute any alcohol or drug abuse patient.[facility] Hospital[facility] the event this information is protected by the Federal Confidentiality of Alcohol and Drug Abuse Patient Records regulations: The Federal rules restrict any use of the information to criminally investigate or prosecute any alcohol or drug abuse patient.[facility] Hospital[facility] the event this information is protected by the Federal Confidentiality of Alcohol and Drug Abuse Patient Records regulations: The Federal rules restrict any use of the information to criminally investigate or prosecute any alcohol or drug abuse patient.[facility] Hospital[facility] the event this information is protected by the Federal Confidentiality of Alcohol and Drug Abuse Patient Records regulations: The Federal rules restrict any use of the information to criminally investigate or prosecute any alcohol or drug abuse patient.[facility] Hospital[facility] the event this information is protected by the Federal Confidentiality of Alcohol and Drug Abuse Patient Records regulations: The Federal rules restrict any use of the information to criminally investigate or prosecute any alcohol or drug abuse patient.[facility] Hospital[facility] the event this information is protected by the Federal Confidentiality of Alcohol and Drug Abuse Patient Records regulations: The Federal rules restrict any use of the information to criminally investigate or prosecute any alcohol or drug abuse patient.[facility] Hospital[facility] the event this information is protected by the Federal Confidentiality of Alcohol and Drug Abuse Patient Records regulations: The Federal rules restrict any use of the information to criminally investigate or prosecute any alcohol or drug abuse patient.[facility] Reason for Visit (unrecogniz ed section and content) Reason Comments Chest Congestion cough x 3 days teste d positive at home Reason Comments Results Reason Comments Sore Throat Sore throat x3 days Reason Comments Cough Congestion, sob, wea kness x 6 days Reason Comments Results, Lab Reason Comments XRay Report Needs chest xray to prove absence of pneumonia Care Teams (unrecognized sec tion and content) [employer] Console Operator Track Relationship Specialty Start Date End Date León Marcano MD PCP - General Family Practice 10/19/15 Lucretia Babcock MD [address] [place] [address] Referring BARREL TESTER 09/13/16 [employer] Console Operator Track Relationship Specialty Start Date End Date León Marcano MD PCP - General Family Practice 10/19/15 Lucretia Babcock MD [address] [place] [address] Referring BARREL TESTER 09/13/16 [employer] Console Operator Track Relationship Specialty Start Date End Date León Marcano MD PCP - General Family Practice 10/19/15 Lucretia Babcock MD [address] [place] [address] Referring BARREL TESTER 09/13/16 [employer] Console Operator Track Relationship Specialty Start Date End Date León Marcano MD PCP - General Family Practice 10/19/15 Lucretia Babcock MD [address] [place] [address] Referring BARREL TESTER 09/13/16 [employer] Console Operator Track Relationship Specialty Start Date End Date León Marcano MD PCP - General Family Practice 10/19/15 Lucretia Babcock MD [address] [place] [address] Referring BARREL TESTER 09/13/16 [employer] Console Operator Track Relationship Specialty Start Date End Date León Marcano MD PCP - General Family Practice 10/19/15 Lucretia Babcock MD [address] [place] [address] Referring BARREL TESTER 09/13/16 [employer] Console Operator Track Relationship Specialty Start Date End Date León Marcano MD PCP - General Family Practice 10/19/15 Lucretia Babcock MD [address] [place], [place] [id number] Referring BARREL TESTER 09/13/16 Team Status: Active Member Role Status Dates Dr. León Marcano MD Family Provider Active No Primary Care Physician Primary Care Provider Active Team Status: Active Member Role Status Dates No Primary Care Physician Primary Care Provider Active Dr. Marissa Amezcua MD Attending Provider, Referring Provider Active Team Status: Inactive Member Role Status Dates No Primary Care Physician Primary Care Provider Active Dr. Marissa Amezcua MD Attending Provider, Referring Provider Active [employer] Console Operator Track Relationship Specialty Start Date End Date León Marcano MD PCP - General Family Medicine 10/19/15 Lucretia Babcock MD [address] [place] [address] Referring Agricultural Consultant 09/13/16 Team Status: Inactive Member Role Status Dates No Primary Care Physician Primary Care Provider Active Start: July 16, 2024 End: July 16, 2024 Dr. Marissa Amezcua MD Attending Provider Active Start: July 16, 2024 End: July 16, 2024 Dr. Marissa Amezcua MD Referring Provider Active Start: July 16, 2024 End: July 16, 2024 Team Status: Inactive Member Role Status Dates No Primary Care Physician Primary Care Provider Active Start: July 22, 2024 End: July 22, 2024 Dr. Kj Villa MD Attending Provider Active S tart: July 22, 2024 End: July 22, 2024 FOR RECORDS PERTAINING TO PATIENTS WHO ARE OR HAVE BEEN ENROLLED IN A CHEMICAL DEPENDENCY/SUBSTANCEABUSE PROGRAM, SOME INFORMATION MAY BE OMITTED. This clinical summary was aggregated from multiple sources. Caution should be exercised in using it in the provision of clinical care. This summary normalizes information from multiple sources, and as a consequence, information in this document may materially change the coding, format and clinical context of patient data. In addition, data may be omitted in some cases. CLINICAL DECISIONS SHOULD BE BASED ON THE PRIMARY CLINICAL RECORDS. [employer] provides no warranty or guarantee of the accuracy or completeness of information in this document.
[2024-08-28] MEDS: 0.9% NaCl IVPB Med Flush (100mL) 15 ML IV (09:47)
[2024-08-28] MEDS: GOLIMUMAB IV (09:47)
[2024-08-28] MEDS: NORMAL SALINE 0.9% IV (09:47)
[2024-08-28 10:37] VITALS: BP 142/59; PULSE 71; RESP 16
== END 2024-08-28 23:59 | disposition home or self-care (01) ==
LOC: MEDOUTP 08:53
PROVIDERS: Referring Provider Internal Medicine Rheumatology; Visit Provider Internal Medicine Rheumatology
DX: M06.00 Rheumatoid arthritis without rheumatoid factor, unspecified site (principal)
CPT/HCPCS: 96365; A4216; J1602

== ENCOUNTER → 2024-10-02 | Outpatient (CLI) | payer MEDICARE, BC, SELFPAY ==
[2024-10-02 13:06] LABS: AUTO B FLUID DILUENT BKGD CT WBC <0.1 RBC <0.01 (W<.1,R<.01); CRYSTALS, BODY FLUID NO CRYSTALS SEEN; Source / Synovial Fluid LEFT HIP; Source- Body Fluid SYNOVIAL
[2024-10-02 13:07] LABS: Appearance /Synovial Fluid Cloudy (CLEAR); Color / Synovial Fluid Yellow (Pale Yellow); Synovial Fld Polynuclear WBC # 0.021 10^3/uL; Synovial Fld Polynuclear WBC % 4.1 %; Total Cell Count Synovial Fld 0.5240 10^3/uL (0.000-0.000); WBC / Synovial Fluid 0.5030 10^3/uL (0.000-0.002)
[2024-10-02 13:08] LABS: RBC /Synovial Fluid 320 /mm3 (0); Synovial Fld Mononuclear WBC # 0.482 10^3/ul; Synovial Fld Mononuclear WBC % 95.9 %
[2024-10-02 13:19] LABS: Body Fluid QC Type(s) BF1,BF2; Monocyte /Synovial Fluid 27 %
== END | disposition home or self-care (01) ==
LOC: LABSPEC 11:23
PROVIDERS: Referring Provider Internal Medicine Rheumatology; Visit Provider Internal Medicine Rheumatology
DX: M06.00 Rheumatoid arthritis without rheumatoid factor, unspecified site (principal); Z79.899 Other long term (current) drug therapy
CPT/HCPCS: 87070; 87075; 87205; 89050; 89051; 89060

== ENCOUNTER → 2024-10-15 | Outpatient (CLI) | payer MEDICARE, BC, SELFPAY ==
[2024-10-15 15:18] LABS: Hematocrit 36.7 % (37-47); Hemoglobin 11.9 g/dL (12.0-15.0); Immature Granulocytes Count 0.040 X10^3/uL (0.0-0.0); Mean Corp Hgb Conc 32.4 g/dL (32-36); Mean Corpuscular Volume 102.2 fL (81-99); Mean Platelet Vol. 10.6 fl (6.2-12.0); NRBC Flagged by Analyzer 0 % (0-5); Platelet Count 287 K/mm3 (150-450); RBC Distribution Width CV 13.1 % (11.6-14.6); RBC Distribution Width SD 49.3 fl (35.1-43.9); Red Blood Count 3.59 M/mm3 (4.2-5.4); White Blood Count 7.9 K/mm3 (4.4-11.0)
[2024-10-15 15:52] LABS: AST(SGOT) 19 U/L (<=31); Alanine Aminotransfer ALT/SGPT 11 U/L (<=34); Albumin, Serum 3.9 g/dL (3.4-4.8); Alkaline Phosphatase 67 U/L (35-104); Anion Gap 6 (5-15); BUN 14 mg/dL (4-19); BUN/Creat Ratio 20.3 RATIO (10-20); Calcium,Total 8.9 mg/dL (7.6-11.0); Carbon Dioxide 29.3 mmol/L (21.0-32.0); Chloride 104 mmol/L (98-108); Globulin 2.3 g/dL (2.2-4.2); Glucose 95 mg/dL (70-99); Potassium 4.4 mmol/L (3.3-5.1)
--- OUTSIDE RECORDS SUMMARY | 2024-10-15 22:15 | XMS RPT_ITS | CCD ---
Author Organization [facility] Care Team Providers Care Curing Supervisor Name Role Phone León Marcano MD Primary Care Provider [phone] Lucretia Babcock MD Unavailable [facility] Doctor, Out of Primary Care Provider Unaangelito nichols [facility] Doctor, Out of Referring Provider Unavailab susie HERNANDEZ, DAVID Cornelius Attending Provider Dr. Kj Villa Attending Provider León Marcano MD Primary Care Provider Lucretia Babcock MD Unavailable Care Physician, No Primary Primary Care Provider Unavailable Dr. Marissa Amezcua MD Attending Provider Dr. Marissa Amezcua MD Referring Provider Daisy FRAIRE, Dr. Underwood Attending Provider Vellanki, Marissa Referring Unavailable Vellanki, Marissa Attending Unavailable Care Physician, No Primary Primary Care Unava ilable Gerardlanfatemeh, Marissa Referring Unavailable Marissa Amezcua Attending Unavailable Care Physician, No Primary Primary Care Unava ilable Vellanki, Marissa Referring Unavailable Care Physician, No Primary Primary Care Unava ilable Vellanki, Marissa Attending Unavailable Kj Villa Attending Unavailable Care Physician, No Primary Primary Care Unava ilable Vellanki, Marissa Referring Unavailable Goldie, Marissa Attending Unavailable Care Physician, No Primary Primary Care Unava ilable Vellanki, Marissa Referring Unavailable Care Physician, No Primary Primary Care Unava ilable Vellanki, Marissa Attending Unavailable Allergies Allergy Classification Reported Allergen(s) Allergy Type Date of Onset Reaction(s) Facility (8 sources) NITROFURANTOIN, MACROCRYSTALS / Nitrofurantoin, Monohydrate Drug Allergy 7 Shortness of Breath, Other: See Comments [facility] (2 sources) traMADol Drug Allergy 5 itching [facility] (1 source) traMADol Drug Allergy 5 [facility] Repository Medications Current Medications Medication Drug Class(es) Dates Sig (Normalized) Sig (Original) cholecalciferol 0.025 mg oral tablet (11 sources) Vitamin D Start: 11-04-2014 Cholecalciferol (Vitamin [...] days. folic acid 1 mg oral tablet (11 sources) Start: 10-29-2019 take 2 tablets by mouth once daily Folic Acid 1 MG tablet Active 2 mg PO DAILY October 29, 2019 12:00am Start: 10-29-2019 take 2 mg by mouth once daily Folic Acid Active 2 MG PO DAILY October 29, 2019 12:00am 4 ml golimumab 12.5 mg/ml injection (17 sources) Tumor Necrosis Factor Ziggy Start: 08-25-2021 golimumab (SIMPONI A LANEY) infusion Inject intravenously. 08/25/2021 Active Start: 08-25-2021 Golimumab (Sim poni Aria) 12.5 mg/mL Solution Active 0 .ROUTE .COMPLEX August 25, 2021 12:00am mg intravenously every 8 weeks Comment on above: Inject intravenously . methotrexate 2.5 mg oral tablet (19 sources) Folate Analog Metabolic Inhibitor Start: 10-29-19 take 4 tablets by mouth every week Methotrexate Sodium 2.5 mg tablet Active 10 mg PO EVERY WEEK October 29, 2019 12:00am Start: 10-29-2019 take 10 mg by mouth every week Methotrexate Sodium Active 10 MG PO EVERY WEEK October 29, 2019 12:00am Comment on above: Take 10 mg by mouth one time only. Completed/Discontinued Medications Medication Drug Class(es) Dates Sig [...] ashleigh hs. predniSONE 2.5 mg oral tablet (11 sources) Start: 09-03-2019 End: 09-13-2022 take 2 tablets by mouth once daily Prednisone 2.5 MG tablet Discontinued 5 mg PO DAILY September 03, 2019 12:00am September 13, 2022 8:36am Start: 09-03-2019 End: 09-13-2022 take 5 mg by mouth once daily Prednisone Discontinued 5 MG PO DAILY September 03, 2019 12:00am September 13, 2022 8:36am traMADol hydrochloride 50 mg oral tablet (11 sources) Opioid Agonist Start: 09-03-2013 End: 08-28-2024 take 1 tablet by mouth every four hours as needed for pain Tramadol 50 MG tablet Discontinued 50 mg PO EVERY 4 HOURS NEEDED as needed for Pain September 03, 2013 12:00am August 28, 2024 9:03am Problems Problem Classification Problem Date Documented Da te Episodic/Chronic Fever of unknown origin (1 source) Fever; Translations: [Fever, unspecified] Episodic Immunizations and screening for infectious disease (1 source) Suspected disease caused by 2019-nCoV; Translations: [Suspected COVID-19 virus infection] Episodic Other lower respiratory disease (12 sources) Cough; Translations: [Acute cough] Episodic Other lower respiratory disease (1 source) Cough; Translations: [Acute cough] 10-07-2021 Episodic Other upper respiratory infections (1 source) Sore throat symptom; Translations: [Acute pharyngitis, unspecified] Episodic Pneumonia (except that caused by tuberculosis or sexually transmitted disease) (11 sources) Bacterial pneumonia; Translations: [Unspecified bacterial pneumonia] Episodic 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 Normal [facility] Comment on above: Performed By: #### L 200.4175, M100.2000, M100.4001, M100.2900, L200.0400 #### [facility] [address] [place], [place], [id number] Culture, Anaerobic Any Sourc stanley 10-07-2024 CUAN UNK UNK No growth in 5 days. Normal [facility] Comment on above: Performed By: #### L 200.4175, M100.2000, M100.4001, M100.2900, L200.0400 #### [facility] [address] [place], [address] Gram Stainon 10-03-2024 GS UNK UNK Gram Stain No organisms seen Normal [facility] Comment on above: Performed By: #### L 200.4175, M100.2000, M100.4001, M100.2900, L200.0400 #### [facility] [address] [place], [address] Anaerobic cultureOrdered By: Marissa Amezcua on 10-02-2024 Bacteria identified Anaer cx Nom (Unsp spec) No growth in 5 days. [facility] Automated synovial fluid mon onuclear cell count (number/volume)Ordered By: Marissa Amezcua on 10-02-2024 Mononuclear cells Auto (Syn fld) [#/Vol] 0.482 10^3/ul [facility] Automated synovial fluid alexander ymorphonuclear cell count (number/volume)Ordered By: Marissa Amezcua on 10-02-2024 Polymorphonuclear cells Auto (Syn fld) [#/Vol] 0.021 10^3/uL [facility] Automated synovial fluid alexander ymorphonuclear cells as percentage of leukocytesOrdered By: Marissa Amezcua on 10-02-2024 Polymorphonuclear cells/100 WBC Auto (Syn fld) 4.1 % [facility] Blood lymphocytes/100 leukoc ytesOrdered By: [facility] Goldie on 10-02-2024 Lymphocytes/100 WBC (Bld) 68 % [facility] Body fluid crystal identific ation by light microscopyOrdered By: Marissa Amezcua on 10-02-2024 Crystals LM Nom (Body fld) NO CRYSTALS SEEN [facility] Comment on above: CRYSTAL RESULT IS PRELIMINARY. SEE PATH REVIEW FOR FINAL REPORT. Crystals, Body Fluidon 10-02 CRYSTALS/BF NO CRYSTALS SEEN Normal [facility] Comment on above: Result Comment: CR YSTAL RESULT IS PRELIMINARY. SEE PATH REVIEW FOR FINAL REPORT. Performed By: #### L 200.4175, M100.2000, M100.4001, M100.2900, L200.0400 #### [facility] [address] [place], [address] SOURCE/BF SYNOVIAL Normal [facility] Comment on above: Performed By: #### L 200.4175, M100.2000, M100.4001, M100.2900, L200.0400 #### [facility] [address] [place], [address] Determination of appearance of synovial fluid (nominal result)Ordered By: Marissa Amezcua on 10-02-2024 Appearance (Syn fld) Cloudy CLEAR [facility] Gram stainOrdered By: Marissa Amezcua on 10-02-2024 Microscopic observation Gram stain Nom (Unsp spec) [facility] Pathologist review of result s (narrative result)Ordered By: Marissa Amezcua on 10-02-2024 Pathologist review Sameer (Unsp spec) [Interp] Reviewed [facility] Comment on above: Previous reported re sult: May follow Edited by: SAVAGE on 10/02/24:1526NON-URATE CRYSTALS PRESENT, SUGGESTIVE OF CALCIUM PYROPHOSHATE CRYSTALS.Estella Alvares MD 10/02/2024 AMENDED REPORT 10/02/24 1526 PATH COM/SYFL previously reported as: May follow Specimen source identificati on of body fluidOrdered By: Marissa Amezcua on 10-02-2024 Specimen source Nom (Body fld) SYNOVIAL [facility] Specimen source Nom (Body fld) LEFT HIP [facility] Synovial Fluid RBC, WBC AND Diffon 10-02-2024 PATH COM/SYFL Reviewed Normal [facility] Comment on above: Result Comment: NON- URATE CRYSTALS PRESENT, SUGGESTIVE OF CALCIUM PYROPHOSHATE CRYSTALS. Estella Alvares MD 10/02/2024 AMENDED REPORT 10/02/24 1526 PATH COM/SYFL previously reported as: May follow Performed By: #### L 200.4175, M100.2000, M100.4001, M100.2900, L200.0400 #### [facility] [address] [place], [address] Synovial fluid color determi nation (nominal result)Ordered By: Marissa Amezcua on 10-02-2024 Color (Syn fld) Yellow Pale Yellow [facility] Synovial fluid erythrocytes count (number/volume)Ordered By: Marissa Amezcua on 10-02-2024 RBC (Syn fld) [#/Vol] 320 /mm3 High 0-0 [facility] Synovial fluid leukocytes co unt (number/volume)Ordered By: Marissa Amezcua on 10-02-2024 WBC (Syn fld) [#/Vol] 0.5030 10^3/uL High 0.00 0-0.00 2 [facility] Synovial fluid monocyte perc entageOrdered By: Marissa Amezcua on 10-02-2024 Monocytes/100 WBC (Syn fld) 27 % [facility] Synovial fluid mononuclear c ells/100 leukocytesOrdered By: Marissa Amezcua on 10-02-2024 Mononuclear cells/100 WBC (Syn fld) 95.9 % [facility] Synovial fluid neutrophil pe rcentageOrdered By: Marissa Amezcua on 10-02-2024 Neutrophils/100 WBC (Syn fld) 5 % 0-25 [facility] Synovial fluid total cell co untOrdered By: Marissa Amezcua on 10-02-2024 Cells Counted Total (Syn fld) [#] 0.5240 10^3/uL High 0.000-0.00 0 [facility] Comment on above: This is the Total Nu mber of Nucleated Cell Types in the Body Fluid. Hips B/L min 2 views w/ Pelv janis 07-22-2024 Hips B/L min 2 views w/ Pelvis [facility] [address], [place] [id number] Hips B/L min 2 views w/ Pelvis MR#: [id number] Acct: [id number] Name: DEANA GARCÍA Rep #: [id number] : 1940 F 83 From: Jose Elias Handy MD PCP: Care Physician,No Primary Status: DEP AMB Study: Hips B/L min 2 views w/ Pelvis Date of Exam: 0 07/22/24 Exam# [id number] Ordering Dr: Marissa Amezcua MD PROCEDURE: HIPS [...] described. Other findings as noted. Reading Location: [id number] CC: Dr. Marissa Amezcua MD; No Primary Care Physician Chief Relay Tester: Signed Normal [facility] Absolute lymphocyte countOrd ered By: Marissa Amezcua on 07-16-2024 Lymphocytes Auto (Unsp spec) [#/Vol] 2.41 10*3/uL 0.83-4.51 [facility] Absolute neutrophil countOrd ered By: Marissa Amezcua on 07-16-2024 Neutrophils (Bld) [#/Vol] 2.4 10*3/uL 2.0-7.7 [facility] Anion gap in Serum or Plasma Ordered By: Marissa Amezcua on 07-16-2024 Anion gap [Moles/Vol] 10 mmol/L 5-15 [facility] Automated lymphocyte count a s percentage of total leukocytesOrdered By: Marissa Amezcua on 07-16-2024 Lymphocytes/100 WBC Auto (Unsp spec) 43.1 % High 19-41 [facility] BUN/creatinine ratioOrdered By: Marissa Amezcua on 07-16-2024 Urea nitrogen/Creatinine [Mass ratio] 22.3 mg/mg High 10-20 [facility] Basophil percentageOrdered B y: Marissa Amezcua on 07-16-2024 Basophils/100 WBC (Bld) 0.7 % 0-1 [facility] Bilirubin, totalOrdered By: Marissa Amezcua on 07-16-2024 Bilirubin [Mass/Vol] 0.50 mg/dL 0.00-1.30 [facility] CBC W/Diff, Automatedon 06-20 Absolute Lymph 2.41 X10 3/uL Normal 0.83-4.51 [facility] Comment on above: Performed By: #### L 100.0100, L500.4050 #### [facility] [address] [place], [address] Absolute Neut 2.4 X10 3/uL Normal 2.0-7.7 [facility] Comment on above: Performed By: #### L 100.0100, L500.4050 #### [facility] [address] [place], [address] Basophils/100 WBC (Bld) 0.7 % Normal 0-1 [facility] Comment on above: Performed By: #### L 100.0100, L500.4050 #### [facility] [address] [place], [address] Eosinophils/100 WBC (Bld) 2.5 % Normal 0-5 [facility] Comment on above: Performed By: #### L 100.0100, L500.4050 #### [facility] [address] [place], [address] Erythrocyte distribution width (RBC) [Ratio] 14.0 % Normal 11.6-14.6 [facility] Comment on above: Performed By: #### L 100.0100, L500.4050 #### [facility] [address] [place], [address] Hematocrit (Bld) [Volume fraction] 38.3 % Normal 37-47 [facility] Comment on above: Performed By: #### L 100.0100, L500.4050 #### [facility] [address] [place], [address] Hemoglobin (Bld) [Mass/Vol] 12.4 g/dL Normal 12.0-15.0 [facility] Comment on above: Performed By: #### L 100.0100, L500.4050 #### [facility] [address] [place], [address] IG% 0.400 Normal 0.0-0.9 [facility] Comment on above: Result Comment: IG% - Immature Granulocytes (promyelocytes, myelocytes and metamyelocytes) > 1% indicates that a LEFT SHIFT is Present. Performed By: #### L 100.0100, L500.4050 #### [facility] [address] [place], [address] Lymphocytes/100 WBC (Bld) 43.1 % High 19-41 [facility] Comment on above: Performed By: #### L 100.0100, L500.4050 #### [facility] [address] [place], [address] MCH (RBC) [Entitic mass] 32.6 pg High 27.0-32.0 [facility] Comment on above: Performed By: #### L 100.0100, L500.4050 #### [facility] [address] [place], [address] MCHC (RBC) [Mass/Vol] 32.4 g/dL Normal 32-36 [facility] Comment on above: Performed By: #### L 100.0100, L500.4050 #### [facility] [address] [place], [address] MCV (RBC) [Entitic vol] 100.8 fL High 81-99 [facility] Comment on above: Performed By: #### L 100.0100, L500.4050 #### [facility] [address] [place], [address] Monocytes/100 WBC (Bld) 10.6 % High 0-10 [facility] Comment on above: Performed By: #### L 100.0100, L500.4050 #### [facility] [address] [place], [address] Neutrophils/100 WBC (Bld) 42.7 % Low 47-70 [facility] Comment on above: Performed By: #### L 100.0100, L500.4050 #### [facility] [address] [place], [address] Nucleated RBC (Bld) [#/Vol] 0 10*3/uL Normal 0-5 [facility] Comment on above: Performed By: #### L 100.0100, L500.4050 #### [facility] [address] [place], [address] Platelet mean volume (Bld) [Entitic vol] 10.2 fL Normal 6.2-12.0 [facility] Comment on above: Performed By: #### L 100.0100, L500.4050 #### [facility] [address] [place], [address] Platelets (Bld) [#/Vol] 308 10*3/uL Normal 150-450 [facility] Comment on above: Performed By: #### L 100.0100, L500.4050 #### [facility] [address] [place], [address] RBC (Bld) [#/Vol] 3.80 10*6/uL Low 4.2-5.4 [facility] Comment on above: Performed By: #### L 100.0100, L500.4050 #### [facility] [address] [place], [address] RDW SD 51.1 fl High 35.1-43.9 [facility] Comment on above: Performed By: #### L 100.0100, L500.4050 #### [facility] [address] [place], [address] WBC (Bld) [#/Vol] 5.6 10*3/uL Normal 4.4-11.0 [facility] Comment on above: Performed By: #### L 100.0100, L500.4050 #### [facility] [address] [place], [address] Carbon dioxide, total [Moles /volume] in Central venous bloodOrdered By: Marissa Amezcua on 07-16-2024 CO2 [Moles/Vol] 27.7 mmol/L 21.0-32.0 [facility] Chloride assayOrdered By: David Amezcua on 07-16-2024 Chloride [Moles/Vol] 101 mmol/L 98-108 [facility] Comprehensive Metabolic Prof ilon 07-16-2024 Albumin [Mass/Vol] 4.1 g/dL Normal 3.4-4.8 [facility] Comment on above: Performed By: #### L 100.0100, L500.4050 #### [facility] [address] [place], [address] Albumin/Globulin [Mass ratio] 1.6 {ratio} Normal 0.9-2.4 [facility] Comment on above: Performed By: #### L 100.0100, L500.4050 #### [facility] [address] [place], [address] ALK PHOS 72 U/L Normal 35-104 [facility] Comment on above: Performed By: #### L 100.0100, L500.4050 #### [facility] [address] [place], [address] ALT [Catalytic activity/Vol] 20 U/L Normal <=34 [facility] Comment on above: Performed By: #### L 100.0100, L500.4050 #### [facility] [address] [place], [address] AST [Catalytic activity/Vol] 25 U/L Normal <=31 [facility] Comment on above: Performed By: #### L 100.0100, L500.4050 #### [facility] [address] [place], [address] Bilirubin [Mass/Vol] 0.50 mg/dL Normal 0.00-1.30 [facility] Comment on above: Performed By: #### L 100.0100, L500.4050 #### [facility] [address] [place], [address] BUN/CRE 22.3 RATIO High 10-20 [facility] Comment on above: Performed By: #### L 100.0100, L500.4050 #### [facility] [address] [place], [address] Calcium [Mass/Vol] 9.3 mg/dL Normal 7.6-11.0 [facility] Comment on above: Performed By: #### L 100.0100, L500.4050 #### [facility] [address] [place], [address] Chloride [Moles/Vol] 101 mmol/L Normal 98-108 [facility] Comment on above: Performed By: #### L 100.0100, L500.4050 #### [facility] [address] [place], [address] CO2 [Moles/Vol] 27.7 mmol/L Normal 21.0-32.0 [facility] Comment on above: Performed By: #### L 100.0100, L500.4050 #### [facility] [address] [place], [address] Creatinine [Mass/Vol] 0.82 mg/dL Normal 0.70-1.20 [facility] Comment on above: Performed By: #### L 100.0100, L500.4050 #### [facility] [address] [place], [address] GAP 10 Normal 5-15 [facility] Comment on above: Performed By: #### L 100.0100, L500.4050 #### [facility] [address] [place], [address] GFR/1.73 sq M.predicted among non-blacks MDRD (S/P/Bld) [Vol rate/Area] 70 mL/min/{1.73_m2} Normal >60 [facility] Comment on above: Result Comment: mL/m in/1.73m2 CKD-EPI Creatinine Equation (2020) Performed By: #### L 100.0100, L500.4050 #### [facility] [address] [place], [address] Globulin (S) [Mass/Vol] 2.6 g/dL Normal 2.2-4.2 [facility] Comment on above: Performed By: #### L 100.0100, L500.4050 #### [facility] [address] [place], [address] Glucose [Mass/Vol] 103 mg/dL High 70-99 [facility] Comment on above: Performed By: #### L 100.0100, L500.4050 #### [facility] [address] [place], [address] Potassium [Moles/Vol] 4.1 mmol/L Normal 3.3-5.1 [facility] Comment on above: Performed By: #### L 100.0100, L500.4050 #### [facility] [address] [place], [address] Sodium [Moles/Vol] 138 mmol/L Normal 133-145 [facility] Comment on above: Performed By: #### L 100.0100, L500.4050 #### [facility] [address] [place], [address] T PROT 6.7 g/dL Normal 5.9-8.4 [facility] Comment on above: Performed By: #### L 100.0100, L500.4050 #### [facility] [address] [place], [address] Urea nitrogen [Mass/Vol] 18 mg/dL Normal 4-19 [facility] Comment on above: Performed By: #### L 100.0100, L500.4050 #### [facility] [address] [place], [address] Eosinophil percentageOrdered By: Marissa Amezcua on 07-16-2024 Eosinophils/100 WBC (Bld) 2.5 % 0-5 [facility] Erythrocyte distribution wid th ratioOrdered By: Marissa Amezcua on 07-16-2024 Erythrocyte distribution width (RBC) [Ratio] 14.0 % 11.6-14.6 [facility] Erythrocyte distribution wid th standard deviationOrdered By: Marissa Amezcua on 07-16-2024 Erythrocyte distribution width (RBC) [Ratio] 51.1 fl High 35.1-43.9 [facility] Glomerular filtration rate ( GFR) estimation/1.73 sq m using serum, plasma, or whole bOrdered By: Marissa Amezcua on 07-16-2024 GFR/1.73 sq M.predicted among non-blacks MDRD (S/P/Bld) [Vol rate/Area] 70 mL/min/{1.73_m2} >60 [facility] Comment on above: mL/min/1.73m2 CKD-EP I Creatinine Equation (2020) Hematocrit Auto (Bld) [Volum e fraction]Ordered By: Marissa Amezcua on 07-16-2024 Hematocrit (Bld) [Volume fraction] 38.3 % 37-47 [facility] Hemoglobin measurementOrdere d By: Marissa Amezcua on 07-16-2024 Hemoglobin (Bld) [Mass/Vol] 12.4 g/dL 12.0-15.0 [facility] Immature granulocytes/100 WB C Auto (Bld)Ordered By: Marissa Amezcua on 07-16-2024 Immature granulocytes/100 WBC (Bld) 0.400 % 0.0-0.9 [facility] Comment on above: IG% - Immature Granu locytes (promyelocytes, myelocytes and metamyelocytes) > 1% indicates that a LEFT SHIFT is Present. Laboratory - Chemistry and C hemistry - challengeOrdered By: Marissa Amezcua on 07-16-2024 AST [Catalytic activity/Vol] 25 U/L <32 [facility] MCV (mean corpuscular volume ) determinationOrdered By: Marissa Amezcua on 07-16-2024 MCV (RBC) [Entitic vol] 100.8 fL High 81-99 [facility] Mean corpuscular hemoglobin (MCH) determinationOrdered By: Marissa Amezcua on 07-16-2024 MCH (RBC) [Entitic mass] 32.6 pg High 27.0-32.0 [facility] Mean corpuscular hemoglobin concentration (MCHC) determinationOrdered By: Marissa Amezcua on 07-16-2024 MCHC (RBC) [Mass/Vol] 32.4 g/dL 32-36 [facility] Mean platelet volume determi nationOrdered By: Marissa Amezcua on 07-16-2024 Platelet mean volume (Bld) [Entitic vol] 10.2 fL 6.2-12.0 [facility] Monocyte percentageOrdered B y: Marissa Amezcua on 07-16-2024 Monocytes/100 WBC (Bld) 10.6 % High 0-10 [facility] Neutrophil percentageOrdered By: Marissa Amezcua on 07-16-2024 Neutrophils/100 WBC (Bld) 42.7 % Low 47-70 [facility] Nucleated red blood cell per centageOrdered By: Marissa Amezcua on 07-16-2024 Nucleated RBC/100 WBC (Bld) [Ratio] 0 % 0-5 [facility] Platelet countOrdered By: David Amezcua on 07-16-2024 Platelets (Bld) [#/Vol] 308 10*3/uL 150-450 [facility] Potassium measurement (mass/ volume)Ordered By: Marissa Amezcua on 07-16-2024 Potassium (Unsp spec) [Mass/Vol] 4.1 mmol/L 3.3-5.1 [facility] RBC Auto (Bld) [#/Vol]Ordere d By: Marissa Amezcua on 07-16-2024 RBC (Bld) [#/Vol] 3.80 10*6/uL Low 4.2-5.4 [facility] Serum creatinine measurement (mass/volume)Ordered By: Marissa Amezcua on 07-16-2024 Creatinine [Mass/Vol] 0.82 mg/dL 0.70-1.20 [facility] Serum globulin measurementOr dered By: Marissa Amezcua on 07-16-2024 Globulin (S) [Mass/Vol] 2.6 g/dL 2.2-4.2 [facility] Serum glucose measurement (m ass/volume)Ordered By: Marissa Amezcua on 07-16-2024 Glucose [Mass/Vol] 103 mg/dL High 70-99 [facility] Serum or plasma alanine stoddard otransferase (ALT) measurementOrdered By: Marissa Amezcua on 07-16-2024 ALT [Catalytic activity/Vol] 20 U/L <35 [facility] Serum or plasma albumin bentley urement (mass/volume)Ordered By: Marissa Amezcua on 07-16-2024 Albumin [Mass/Vol] 4.1 g/dL 3.4-4.8 [facility] Serum or plasma albumin/glob ulin mass ratioOrdered By: Marissa Amezcua on 07-16-2024 Albumin/Globulin [Mass ratio] 1.6 {ratio} 0.9-2.4 [facility] Serum or plasma alkaline raven sphatase measurementOrdered By: Marissa Amezcua on 07-16-2024 ALP [Catalytic activity/Vol] 72 U/L 35-104 [facility] Serum or plasma calcium bentley urement (mass/volume)Ordered By: Marissa Amezcua on 07-16-2024 Calcium [Mass/Vol] 9.3 mg/dL 7.6-11.0 [facility] Serum or plasma urea nitroge n measurement (mass/volume)Ordered By: Marissa Amezcua on 07-16-2024 Urea nitrogen [Mass/Vol] 18 mg/dL 4-19 [facility] Sodium levelOrdered By: Huang Amezcua on 07-16-2024 Sodium [Moles/Vol] 138 mmol/L 133-145 [facility] Total proteinOrdered By: Renetta Amezcua on 07-16-2024 Protein [Mass/Vol] 6.7 g/dL 5.9-8.4 [facility] White blood cell (WBC) count Ordered By: Marissa Amezcua on 07-16-2024 WBC (Bld) [#/Vol] 5.6 10*3/uL 4.4-11.0 [facility] CBC W/Diff, Automatedon 09-0 Absolute Lymph 2.30 X10 3/uL Normal 0.83-4.51 [facility] Comment on above: Performed By: #### L 100.0100, L500.4050 #### [facility] [address] [place], [address] Absolute Neut 2.8 X10 3/uL Normal 2.0-7.7 [facility] Comment on above: Performed By: #### L 100.0100, L500.4050 #### [facility] [address] [place], [address] Basophils/100 WBC (Bld) 0.7 % Normal 0-1 [facility] Comment on above: Performed By: #### L 100.0100, L500.4050 #### [facility] [address] [place], [address] Eosinophils/100 WBC (Bld) 2.3 % Normal 0-5 [facility] Comment on above: Performed By: #### L 100.0100, L500.4050 #### [facility] [address] [place], [address] Erythrocyte distribution width (RBC) [Ratio] 13.2 % Normal 11.6-14.6 [facility] Comment on above: Performed By: #### L 100.0100, L500.4050 #### [facility] [address] [place], [address] Hematocrit (Bld) [Volume fraction] 36.8 % Low 37-47 [facility] Comment on above: Performed By: #### L 100.0100, L500.4050 #### [facility] [address] [place], [address] Hemoglobin (Bld) [Mass/Vol] 11.8 g/dL Low 12.0-15.0 [facility] Comment on above: Performed By: #### L 100.0100, L500.4050 #### [facility] [address] [place], [address] IG% 0.300 Normal 0.0-0.9 [facility] Comment on above: Result Comment: IG% - Immature Granulocytes (promyelocytes, myelocytes and metamyelocytes) > 1% indicates that a LEFT SHIFT is Present. Performed By: #### L 100.0100, L500.4050 #### [facility] [address] [place], [address] Lymphocytes/100 WBC (Bld) 38.4 % Normal 19-41 [facility] Comment on above: Performed By: #### L 100.0100, L500.4050 #### [facility] [address] [place], [address] MCH (RBC) [Entitic mass] 32.3 pg High 27.0-32.0 [facility] Comment on above: Performed By: #### L 100.0100, L500.4050 #### [facility] [address] [place], [address] MCHC (RBC) [Mass/Vol] 32.1 g/dL Normal 32-36 [facility] Comment on above: Performed By: #### L 100.0100, L500.4050 #### [facility] [address] [place], [address] MCV (RBC) [Entitic vol] 100.8 fL High 81-99 [facility] Comment on above: Performed By: #### L 100.0100, L500.4050 #### [facility] [address] [place], [address] Monocytes/100 WBC (Bld) 12.4 % High 0-10 [facility] Comment on above: Performed By: #### L 100.0100, L500.4050 #### [facility] [address] [place], [address] Neutrophils/100 WBC (Bld) 45.9 % Low 47-70 [facility] Comment on above: Performed By: #### L 100.0100, L500.4050 #### [facility] [address] [place], [address] Nucleated RBC (Bld) [#/Vol] 0 10*3/uL Normal 0-5 [facility] Comment on above: Performed By: #### L 100.0100, L500.4050 #### [facility] [address] [place], [address] Platelet mean volume (Bld) [Entitic vol] 10.3 fL Normal 6.2-12.0 [facility] Comment on above: Performed By: #### L 100.0100, L500.4050 #### [facility] [address] [place], [address] Platelets (Bld) [#/Vol] 302 10*3/uL Normal 150-450 [facility] Comment on above: Performed By: #### L 100.0100, L500.4050 #### [facility] [address] [place], [address] RBC (Bld) [#/Vol] 3.65 10*6/uL Low 4.2-5.4 [facility] Comment on above: Performed By: #### L 100.0100, L500.4050 #### [facility] [address] [place], [address] RDW SD 48.7 fl High 35.1-43.9 [facility] Comment on above: Performed By: #### L 100.0100, L500.4050 #### [facility] [address] [place], [address] WBC (Bld) [#/Vol] 6.0 10*3/uL Normal 4.4-11.0 [facility] Comment on above: Performed By: #### L 100.0100, L500.4050 #### [facility] [address] [place], [address] Comprehensive Metabolic [facility] 10-23-2023 Albumin [Mass/Vol] 3.4 g/dL Normal 3.2-5.0 [facility] Comment on above: Performed By: #### L 100.0100, L500.4050 #### [facility] [address] [place], [address] Albumin/Globulin [Mass ratio] 1.0 {ratio} Normal 0.9-2.4 [facility] Comment on above: Performed By: #### L 100.0100, L500.4050 #### [facility] [address] [place], [address] ALK P 73 U/L Normal 45-117 [facility] Comment on above: Performed By: #### L 100.0100, L500.4050 #### [facility] [address] [place], [address] ALT [Catalytic activity/Vol] 16 U/L Normal 13-56 [facility] Comment on above: Performed By: #### L 100.0100, L500.4050 #### [facility] [address] [place], [address] AST [Catalytic activity/Vol] 18 U/L Normal 15-37 [facility] Comment on above: Performed By: #### L 100.0100, L500.4050 #### [facility] [address] [place], [address] Bilirubin [Mass/Vol] 0.50 mg/dL Normal 0.20-1.00 [facility] Comment on above: Result Comment: For patients on eltrombopag therapy, use of Dimension [place] TBIL is not recommended. Performed By: #### L 100.0100, L500.4050 #### [facility] [address] [place], [address] BUN/CRE 18.1 RATIO Normal 10-20 [facility] Comment on above: Performed By: #### L 100.0100, L500.4050 #### [facility] [address] [place], [address] CA,Total 9.1 mg/dL Normal 8.5-10.1 [facility] Comment on above: Performed By: #### L 100.0100, L500.4050 #### [facility] [address] [place], [address] Chloride [Moles/Vol] 104 mmol/L Normal 98-107 [facility] Comment on above: Performed By: #### L 100.0100, L500.4050 #### [facility] [address] [place], [address] CO2 [Moles/Vol] 29.0 mmol/L Normal 21.0-32.0 [facility] Comment on above: Performed By: #### L 100.0100, L500.4050 #### [facility] [address] [place], [address] Creatinine [Mass/Vol] 0.88 mg/dL Normal 0.55-1.02 [facility] Comment on above: Result Comment: The validity of the calculated GFR GFRAA in patients over 70 years has not been determined. Clinical correlation is essential. Performed By: #### L 100.0100, L500.4050 #### [facility] [address] [place], [address] EST GFR - AA 78 mL/min Normal >60 [facility] Comment on above: Result Comment: Afri can Nauruan GFR Calc Performed By: #### L 100.0100, L500.4050 #### [facility] [address] [place], [address] GAP 6 Normal 5-15 [facility] Comment on above: Performed By: #### L 100.0100, L500.4050 #### [facility] [address] [place], [address] GFR/1.73 sq M.predicted among non-blacks MDRD (S/P/Bld) [Vol rate/Area] 65 mL/min/{1.73_m2} Normal >60 [facility] Comment on above: Result Comment: Non- GFR Calc Performed By: #### L 100.0100, L500.4050 #### [facility] [address] [place], [address] Globulin (S) [Mass/Vol] 3.3 g/dL Normal 2.2-4.2 [facility] Comment on above: Performed By: #### L 100.0100, L500.4050 #### [facility] [address] [place], [address] Glucose [Mass/Vol] 98 mg/dL Normal 74-106 [facility] Comment on above: Performed By: #### L 100.0100, L500.4050 #### [facility] [address] [place], [address] Potassium [Moles/Vol] 4.2 mmol/L Normal 3.5-5.1 [facility] Comment on above: Performed By: #### L 100.0100, L500.4050 #### [facility] [address] [place], [address] Sodium [Moles/Vol] 139 mmol/L Normal 136-145 [facility] Comment on above: Performed By: #### L 100.0100, L500.4050 #### [facility] [address] [place], [address] T PROT 6.7 g/dL Normal 6.4-8.2 [facility] Comment on above: Performed By: #### L 100.0100, L500.4050 #### [facility] [address] [place], [address] Urea nitrogen [Mass/Vol] 16 mg/dL Normal 7-18 [facility] Comment on above: Performed By: #### L 100.0100, L500.4050 #### [facility] [address] [place], [address] Absolute lymphocyte countOrd ered By: Marissa Amezcua on 10-16-2022 Lymphocytes Auto (Unsp spec) [#/Vol] 2.24 10*3/uL 0.83-4.51 [facility] Basophil percentageOrdered B y: Marissa Amezcua on 10-16-2022 Basophils/100 WBC (Bld) 0.9 % 0-1 [facility] Bilirubin [Mass/Vol] 0.50 mg/dL 0.20-1.00 [facility] Comment on above: For patients on eltr ombopag therapy, use of Dimension [place] TBIL is not recommended. Chloride [Moles/Vol] 105 mmol/L 98-107 [facility] Eosinophils/100 WBC (Bld) 2.5 % 0-5 [facility] Glucose [Mass/Vol] 69 mg/dL 74-106 [facility] Neutrophils (Bld) [#/Vol] 2.2 10*3/uL 2.0-7.7 [facility] Neutrophils/100 WBC (Bld) 41.2 % 47-70 [facility] Potassium [Moles/Vol] 4.1 mmol/L 3.5-5.1 [facility] Protein [Mass/Vol] 6.7 g/dL 6.4-8.2 [facility] Sodium [Moles/Vol] 138 mmol/L 136-145 [facility] WBC (Bld) [#/Vol] 5.3 10*3/uL 4.4-11.0 [facility] Blood erythrocytes count (nu mber/volume)Ordered By: Marissa Amezcua on 10-16-2022 RBC (Bld) [#/Vol] 3.88 10*6/uL 4.2-5.4 [facility] Blood hemoglobin measurement (mass/volume)Ordered By: Marissa Amezcua on 10-16-2022 Hemoglobin (Bld) [Mass/Vol] 12.4 g/dL 12.0-15.0 [facility] Blood lymphocytes/100 leukoc ytesOrdered By: Marissa Amezcua on 10-16-2022 Lymphocytes/100 WBC (Bld) 42.5 % 19-41 [facility] Blood monocytes/100 leukocyt esOrdered By: Marissa Amezcua on 10-16-2022 Monocytes/100 WBC (Bld) 12.7 % 0-10 [facility] Blood platelet mean volumeOr dered By: Marissa Amezcua on 10-16-2022 Platelet mean volume (Bld) [Entitic vol] 10.5 fL 6.2-12.0 [facility] Determination of erythrocyte mean corpuscular volume (MCV)Ordered By: Marissa Amezcua on 10-16-2022 MCV (RBC) [Entitic vol] 103.6 fL 81-99 [facility] Hematocrit Auto (Bld) [Volum e fraction]Ordered By: Marissa Amezcua on 10-16-2022 Hematocrit (Bld) [Volume fraction] 40.2 % 37-47 [facility] - Chemistry and C hemistry - challengeOrdered By: Marissa Amezcua on 10-16-2022 ALP [Catalytic activity/Vol] 77 U/L 45-117 [facility] ALT [Catalytic activity/Vol] 17 U/L 13-56 [facility] CO2 [Moles/Vol] 30.0 mmol/L 21.0-32.0 [facility] Globulin (S) [Mass/Vol] 3.4 g/dL 2.2-4.2 [facility] Urea nitrogen/Creatinine [Mass ratio] 22.4 mg/mg 10-20 [facility] - Hematology and Cell countsOrdered By: Marissa Amezcua on 10-16-2022 Erythrocyte distribution width (RBC) [Entitic vol] 48.2 fL 35.1-43.9 [facility] Erythrocyte distribution width (RBC) [Ratio] 12.7 % 11.6-14.6 [facility] Immature granulocytes/100 WBC (Bld) 0.200 % 0.0-0.9 [facility] Comment on above: IG% - Immature Granu locytes (promyelocytes, myelocytes and metamyelocytes) > 1% indicates that a LEFT SHIFT is Present. MCH (RBC) [Entitic mass] 32.0 pg 27.0-32.0 [facility] Nucleated RBC/100 WBC (Bld) [Ratio] 0 % 0-5 [facility] MCHC Auto (RBC) [Mass/Vol]Or dered By: Marissa Amezcua on 10-16-2022 MCHC (RBC) [Mass/Vol] 30.8 g/dL 32-36 [facility] No Panel InformationOrdered By: Marissa Amezcua on 10-16-2022 Estimated GFR (MDRD) Amer 87 mL/min >60 [facility] Comment on above: GFR Calc Estimated GFR (MDRD) Non-Af Amer 72 mL/min >60 [facility] Comment on above: Non- GFR Calc Platelets bldOrdered By: Renetta Amezcua on 10-16-2022 Platelets (Bld) [#/Vol] 282 10*3/uL 150-450 [facility] Serum or plasma albumin bentley urement (mass/volume)Ordered By: Marissa Amezcua on 10-16-2022 Albumin [Mass/Vol] 3.3 g/dL 3.2-5.0 [facility] Serum or plasma albumin/glob ulin mass ratioOrdered By: Marissa Amezcua on 10-16-2022 Albumin/Globulin [Mass ratio] 1.0 {ratio} 0.9-2.4 [facility] Serum or plasma calcium bentley urement (mass/volume)Ordered By: Marissa Amezcua on 10-16-2022 Calcium [Mass/Vol] 8.7 mg/dL 8.5-10.1 [facility] Serum or plasma creatinine m easurement (mass/volume)Ordered By: Marissa Amezcua on 10-16-2022 Creatinine [Mass/Vol] 0.80 mg/dL 0.55-1.02 [facility] Comment on above: The validity of the calculated GFR & GFRAA in patients over 70 years has not been determined. Clinical correlation is essential. Serum or plasma urea nitroge n measurement (mass/volume)Ordered By: Marissa Amezcua on 10-16-2022 Urea nitrogen [Mass/Vol] 18 mg/dL 7-18 [facility] Thin prep Papanicolaou smear with manual screeningOrdered By: Marissa Amezcua on 10-16-2022 Thin prep Papanicolaou smear with manual screening 17 U/L 15-37 [facility] Thin prep Papanicolaou smear with manual screening 3 5-15 [facility] Qualitative QuantiFERON-TB g old in tube testOrdered By: Dr. Amezcua on 07-21-2022 M. tuberculosis tuberculin stim IFN-g Ql (Bld) 0.15 IU/mL . [facility] Thin prep Papanicolaou smear with manual screeningOrdered By: Dr. Amezcua on 07-21-2022 Thin prep Papanicolaou smear with manual screening Comment . [facility] Comment on above: QuantiFERON-TB Gold Plus is [...] smear with manual screening 0.14 IU/mL . [facility] Thin prep Papanicolaou smear with manual screening 0.30 IU/mL . [facility] Thin prep Papanicolaou smear with manual screening > 10.00 IU/mL . [facility] Thin prep Papanicolaou smear with manual screening Negative Negative [facility] Comment on above: No response to M [...] the productionof interferon gamma. Chemiluminescence immunoassaymethodologyPerformed at: [facility] [id number] Director: Reagan Weiss PhD, Phone: [phone] Absolute lymphocyte countOrd ered By: Dr. Amezcua on 07-19-2022 Lymphocytes Auto (Unsp spec) [#/Vol] 1.96 10*3/uL 0.83-4.51 [facility] Basophil percentageOrdered B y: Dr. Amezcua on 07-19-2022 Basophils/100 WBC (Bld) 0.9 % 0-1 [facility] Bilirubin [Mass/Vol] 0.70 mg/dL 0.20-1.00 [facility] Comment on above: For patients on eltr ombopag therapy, use of Dimension [place] TBIL is not recommended. Chloride [Moles/Vol] 106 mmol/L 98-107 [facility] Eosinophils/100 WBC (Bld) 2.8 % 0-5 [facility] Glucose [Mass/Vol] 114 mg/dL 74-106 [facility] Comment on above: Fasting Glucose resu lt from 100 to 125 mg/dL suggests IMPAIRED HOMEOSTASIS per A.D.A. criteria. Neutrophils (Bld) [#/Vol] 1.7 10*3/uL 2.0-7.7 [facility] Neutrophils/100 WBC (Bld) 39.2 % 47-70 [facility] Potassium [Moles/Vol] 4.2 mmol/L 3.5-5.1 [facility] Protein [Mass/Vol] 6.8 g/dL 6.4-8.2 [facility] Sodium [Moles/Vol] 142 mmol/L 136-145 [facility] WBC (Bld) [#/Vol] 4.3 10*3/uL 4.4-11.0 [facility] Blood erythrocytes count (nu mber/volume)Ordered By: Dr. Amezcua on 07-19-2022 RBC (Bld) [#/Vol] 3.76 10*6/uL 4.2-5.4 [facility] Blood hemoglobin measurement (mass/volume)Ordered By: Dr. Amezcua on 07-19-2022 Hemoglobin (Bld) [Mass/Vol] 12.2 g/dL 12.0-15.0 [facility] Blood lymphocytes/100 leukoc ytesOrdered By: Dr. Amezcua on 07-19-2022 Lymphocytes/100 WBC (Bld) 45.7 % 19-41 [facility] Blood monocytes/100 leukocyt esOrdered By: Dr. Amezcua on 07-19-2022 Monocytes/100 WBC (Bld) 11.2 % 0-10 [facility] Blood platelet mean volumeOr dered By: Dr. Amezcua on 07-19-2022 Platelet mean volume (Bld) [Entitic vol] 10.2 fL 6.2-12.0 [facility] Determination of erythrocyte mean corpuscular volume (MCV)Ordered By: Dr. Amezcua on 07-19-2022 MCV (RBC) [Entitic vol] 102.1 fL 81-99 [facility] Hematocrit Auto (Bld) [Volum e fraction]Ordered By: Dr. Amezcua on 07-19-2022 Hematocrit (Bld) [Volume fraction] 38.4 % 37-47 [facility] - Chemistry and C hemistry - challengeOrdered By: Dr. Amezcua on 07-19-2022 ALP [Catalytic activity/Vol] 76 U/L 45-117 [facility] ALT [Catalytic activity/Vol] 20 U/L 13-56 [facility] CO2 [Moles/Vol] 29.0 mmol/L 21.0-32.0 [facility] Globulin (S) [Mass/Vol] 3.2 g/dL 2.2-4.2 [facility] Urea nitrogen/Creatinine [Mass ratio] 19.2 mg/mg 10-20 [facility] - Hematology and Cell countsOrdered By: Dr. Amezcua on 07-19-2022 Erythrocyte distribution width (RBC) [Entitic vol] 49.0 fL 35.1-43.9 [facility] Erythrocyte distribution width (RBC) [Ratio] 13.0 % 11.6-14.6 [facility] Immature granulocytes/100 WBC (Bld) 0.200 % 0.0-0.9 [facility] Comment on above: IG% - Immature Granu locytes (promyelocytes, myelocytes and metamyelocytes) > 1% indicates that a LEFT SHIFT is Present. MCH (RBC) [Entitic mass] 32.4 pg 27.0-32.0 [facility] Nucleated RBC/100 WBC (Bld) [Ratio] 0 % 0-5 [facility] MCHC Auto (RBC) [Mass/Vol]Or dered By: Dr. Amezcua on 07-19-2022 MCHC (RBC) [Mass/Vol] 31.8 g/dL 32-36 [facility] No Panel InformationOrdered By: Dr. Amezcua on 07-19-2022 Estimated GFR (MDRD) Amer 90 mL/min >60 [facility] Comment on above: GFR Calc Estimated GFR (MDRD) Non-Af Amer 75 mL/min >60 [facility] Comment on above: Non- GFR Calc Platelets bldOrdered By: Dr. Amezcua on 07-19-2022 Platelets (Bld) [#/Vol] 290 10*3/uL 150-450 [facility] Serum or plasma albumin bentley urement (mass/volume)Ordered By: Dr. Amezcua on 07-19-2022 Albumin [Mass/Vol] 3.6 g/dL 3.2-5.0 [facility] Serum or plasma albumin/glob ulin mass ratioOrdered By: Dr. Amezcua on 07-19-2022 Albumin/Globulin [Mass ratio] 1.1 {ratio} 0.9-2.4 [facility] Serum or plasma calcium bentley urement (mass/volume)Ordered By: Dr. Amezcua on 07-19-2022 Calcium [Mass/Vol] 9.2 mg/dL 8.5-10.1 [facility] Serum or plasma creatinine m easurement (mass/volume)Ordered By: Dr. Amezcua on 07-19-2022 Creatinine [Mass/Vol] 0.78 mg/dL 0.55-1.02 [facility] Comment on above: The validity of the calculated GFR & GFRAA in patients over 70 years has not been determined. Clinical correlation is essential. Serum or plasma urea nitroge n measurement (mass/volume)Ordered By: Dr. Amezcua on 07-19-2022 Urea nitrogen [Mass/Vol] 15 mg/dL 7-18 [facility] Thin prep Papanicolaou smear with manual screeningOrdered By: Dr. Amezcua on 07-19-2022 Thin prep Papanicolaou smear with manual screening 25 U/L 15-37 [facility] Thin prep Papanicolaou smear with manual screening 7 5-15 [facility] CNOVon 10-20-2021 CNOV Office Visit (UCWSTR ) DEANA ROMAN ([id number]) 1940 F Date Time Provider Department 10/20/21 11:15 AM [facility] During your visit today, we recorded the following information about you: Temperature Pulse Respiration Blood pressure 98.3 degrees 86/minute 21/minute 130/68 Weight 71.3 kg Che Boyle APRN.CNP 10/20/2021 6:30 PM Signed Subjective HPI HPI [...] 786.2, ICD10: R05.1 Patient was to go [facility] and get xray [place] hospital. I called patient after few hours, patient stated [facility]. - XR CHEST 2V FRONTAL/LAT Che Boyle APRN.REPRODUCTION ORDER PROCESSOR Referring Provider: SELF [200] Allergies As of [...] Status:Closed by CHE BOYLE on 10/20/21 Normal [facility] Absolute lymphocyte counton 10-13-2021 Lymphocytes Auto (Unsp spec) [#/Vol] 2.92 10*3/uL 0.83-4.51 [facility] Work Phone: [phone] Basophil percentageon 2021 Basophil percentage Not Reportable [facility] Work Phone: [phone] Bilirubin [Mass/Vol] 0.30 mg/dL 0.20-1.00 [facility] Work Phone: Comment on above: For patients on eltr ombopag therapy, use of Dimension [place] TBIL is not recommended. Chloride [Moles/Vol] 101 mmol/L 98-107 [facility] Work Phone: [phone] Glucose [Mass/Vol] 140 mg/dL 74-106 [facility] Work Phone: Comment on above: Fasting Glucose resu lt greater than or equal to 126 mg/dL suggests DIABETES MELLITUS per A.D.A. criteria. Neutrophils (Bld) [#/Vol] 3.5 10*3/uL 2.0-7.7 [facility] Work Phone: [phone] Potassium [Moles/Vol] 4.0 mmol/L 3.5-5.1 [facility] Work Phone: [phone] Protein [Mass/Vol] 6.9 g/dL 6.4-8.2 [facility] Work Phone: [phone] Sodium [Moles/Vol] 138 mmol/L 136-145 [facility] Work Phone: [phone] WBC (Bld) [#/Vol] 7.5 10*3/uL 4.4-11.0 [facility] Work Phone: Blood band neutrophil count as percentage of total leukocyteson 10-13-2021 Band form neutrophils/100 WBC (Bld) 2 % 0-5 [facility] Work Phone: Blood erythrocytes count (nu mber/volume)on 10-13-2021 RBC (Bld) [#/Vol] 3.60 10*6/uL 4.2-5.4 [facility] Work Phone: Blood hemoglobin measurement (mass/volume)on 10-13-2021 Hemoglobin (Bld) [Mass/Vol] 11.6 g/dL 12.0-15.0 [facility] Work Phone: Blood lymphocytes/100 leukoc yteson 10-13-2021 Lymphocytes/100 WBC (Bld) 39 % 19-41 [facility] Work Phone: Blood metamyelocytes/100 edouard kocyteson 10-13-2021 Metamyelocytes/100 WBC (Bld) 1 % 0-1 [facility] Work Phone: Blood monocytes/100 leukocyt eson 10-13-2021 Monocytes/100 WBC (Bld) 8 % 0-10 [facility] Work Phone: Blood platelet adequacy dete ction by light microscopyon 10-13-2021 Platelets LM Ql (Bld) ADEQUATE ADEQ [facility] Work Phone: Blood platelet mean volumeon 10-13-2021 Platelet mean volume (Bld) [Entitic vol] 9.6 fL 6.2-12.0 [facility] Work Phone: Blood segmented neutrophils/ 100 leukocyteson 10-13-2021 Segmented neutrophils/100 WBC (Bld) 45 % 47-70 [facility] Work Phone: Determination of erythrocyte mean corpuscular volume (MCV)on 10-13-2021 MCV (RBC) [Entitic vol] 100.3 fL 81-99 [facility] Work Phone: Hematocrit Auto (Bld) [Volum e fraction]on 10-13-2021 Hematocrit (Bld) [Volume fraction] 36.1 % 37-47 [facility] Work Phone: Laboratory - Chemistry and C hemistry - challengeon 10-13-2021 ALP [Catalytic activity/Vol] 86 U/L 45-117 [facility] Work Phone: [phone] ALT [Catalytic activity/Vol] 48 U/L 13-56 [facility] Work Phone: [phone] CO2 [Moles/Vol] 31.0 mmol/L 21.0-32.0 [facility] Work Phone: [phone] Globulin (S) [Mass/Vol] 4.1 g/dL 2.2-4.2 [facility] Work Phone: [phone] Urea nitrogen/Creatinine [Mass ratio] 18.3 mg/mg 10-20 [facility] Work Phone: [phone] Laboratory - Hematology and Cell countson 10-13-2021 Erythrocyte distribution width (RBC) [Entitic vol] 49.4 fL 35.1-43.9 [facility] Work Phone: [phone] Erythrocyte distribution width (RBC) [Ratio] 13.4 % 11.6-14.6 [facility] Work Phone: [phone] MCH (RBC) [Entitic mass] 32.2 pg 27.0-32.0 [facility] Work Phone: [phone] Myelocytes/100 WBC (Bld) 5 % 0-0 [facility] Work Phone: MCHC Auto (RBC) [Mass/Vol]on 10-13-2021 MCHC (RBC) [Mass/Vol] 32.1 g/dL 32-36 [facility] Work Phone: No Panel Informationon 10-13 Estimated GFR (MDRD) Amer 86 mL/min >60 [facility] Work Phone: Comment on above: GFR Calc Estimated GFR (MDRD) Non-Af Amer 71 mL/min >60 [facility] Work Phone: Comment on above: Non- GFR Calc Platelets bldon 10-13-2021 Platelets (Bld) [#/Vol] 474 10*3/uL 150-450 [facility] Work Phone: RBC morphologyon 10-13-2021 RBC morphology finding Nom (Bld) NORM C+C NORMAL NORM C&C [facility] Work Phone: Review by pathologiston 09-20 Pathologist review Sameer (Unsp spec) [Interp] Reviewed [facility] Work Phone: Comment on above: Previous reported re sult: [place] amanda Edited by: IAN on 10/14/21:1511Macrocytic anemia.Neutrophilic left shift.Thrombocytosis.Clinical correlation necessary.Joshua Driver M.D. 10/14/21 AMENDED REPORT 10/14/21 1511 PATH REV previously reported as: [place] patel Serum or plasma albumin bentley urement (mass/volume)on 10-13-2021 Albumin [Mass/Vol] 2.8 g/dL 3.2-5.0 [facility] Work Phone: Serum or plasma albumin/glob ulin mass ratioon 10-13-2021 Albumin/Globulin [Mass ratio] 0.7 {ratio} 0.9-2.4 [facility] Work Phone: Serum or plasma calcium bentley urement (mass/volume)on 10-13-2021 Calcium [Mass/Vol] 9.3 mg/dL 8.5-10.1 [facility] Work Phone: Serum or plasma creatinine m easurement (mass/volume)on 10-13-2021 Creatinine [Mass/Vol] 0.82 mg/dL 0.55-1.02 [facility] Work Phone: Comment on above: The validity of the calculated GFR & GFRAA in patients over 70 years has not been determined. Clinical correlation is essential. Serum or plasma urea nitroge n measurement (mass/volume)on 10-13-2021 Urea nitrogen [Mass/Vol] 15 mg/dL 7-18 [facility] Work Phone: Thin prep Papanicolaou smear with manual screeningon 10-13-2021 Thin prep Papanicolaou smear with manual screening 47 U/L 15-37 [facility] Work Phone: Thin prep Papanicolaou smear with manual screening 6 5-15 [facility] Work Phone: Total cell counton Cells counted Molgen (Bld/Tiss) [#] 100 MANUAL DIFF [facility] Work Phone: CNPNon 10-08-2021 CNPN Telephone (UCWSTR) ROBELDEANA MEDINA ([id number]) 1940 F Date Time Provider Department 10/08/21 SELENE MCGILL [facility] During your visit today, we recorded the following information about you: Karli Nixon 10/08/2021 9:10 AM Signed ----- Message from Selene Mcgill APRN.REPRODUCTION ORDER PROCESSOR sent at 10/08/2021 8:06 AM EDT ----- [...] Encounter Status:Closed by KARLI NIXON on 10/08/21 [facility] CNOVon 10-07-2021 CNOV Office Visit (UCWSTR ) DEANA ROMAN ([id number]) 1940 F Date Time Provider Department 10/07/21 11:15 AM [facility] During your visit today, we recorded the following information about you: Temperature Pulse Respiration Blood pressure 103.5 degrees 125/minute 20/minute 148/62 Weight 69.4 kg Rocio Zamora APRN.REPRODUCTION ORDER PROCESSOR 10/07/2021 1:42 PM Signed This note was created using GlySureriter. 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 The history is provided by the patient. No speech language therapist was used. Cough This is a new [...] General: A (more content not included)... Normal [facility] Influenza virus A and B RNA and SARS-CoV-2 (COVID-19) N gene panel JEANMARIE+probe (Resp)on 10-07-2021 FLUAV RNA JEANMARIE+probe Ql (Unsp spec) Negative Normal Negative for Influenza A by RT-PCR [facility] Comment on above: Order Comment: Speci men Type: SWAB OF INTERNAL NOSEOrdering Facility: [facility] Address: [address] [place] [address] Performed By: #### 9 5422-2 ####[facility] LABCLIA [id number] [address] OF [place] FLUBV RNA JEANMARIE+probe Ql (Unsp spec) Negative Normal Negative for Influenza B by RT-PCR [facility] Comment on above: Order Comment: Speci men Type: SWAB OF INTERNAL NOSEOrdering Facility: [facility] Address: [address] [place] [address] Performed By: #### 9 5422-2 ####[facility] LABCLIA [id number] [place] [address] [place] SARS-CoV-2 (COVID-19) RNA JEANMARIE+probe Ql (Resp) SARS-CoV-2 (Agent of COVID-19) Not Detected by RT-PCR or equivalent method. Normal Not Detected [facility] Comment on above: Order Comment: Speci men Type: SWAB OF INTERNAL NOSEOrdering Facility: [facility] Address: [address] [place] [address] Result Comment: xiao s [id number]_[employer] (DENIZ)_EUA This test was developed and its performance characteristics determined by [facility]'s [facility] [place]. This test has been authorized by FDA under an Emergency Use Authorization (EUA). This test has been validated in accordance with the FDA's Guidance Document Policy for Diagnostics Testing in Laboratories Certified to Perform High Complexity Testing under CLIA prior to Emergency use Authorization for Coronavirus Disease 2019 during the Public Health Emergency issued on April 19, 2019. Test performed by [facility], [facility] [place], [address] [place] [address]. Performed By: #### 9 5422-2 ####[facility] LABCLIA [id number] [place] [address] [place] XR CHEST 2V [...] x-ray follow-up to document resolution is recommended. Chief Relay Tester: PSCB Transcribe Date/Time: Oct 07 2021 11:58A Dictated by : LORENA CABAN MD This examination was interpreted and the report reviewed and electronically signed by: LORENA CABAN MD on Oct 07 2021 12:00PM EST [id number] Normal [facility] XR Chest PA and Lateralon IMPRESSION: Bibasilar airspace disease suggestive of infiltrates. Atelectasis less likely. Chest x-ray follow-up to document resolution is recommended. Chief Relay Tester: PSCB Transcribe Date/Time: Oct 07 2021 11:58A Dictated by : LORENA CABAN MD This examination was interpreted and the report reviewed and electronically signed by: LORENA CABAN MD on Oct 07 2021 12:00PM EST DIVISION OF RADIOLOGY * * *Final Report* [...] shoulder joint replacement DIVISION OF RADIOLOGY Provider, [facility] - 10/07/2021 * * *Final Report* * [...] x-ray follow-up to document resolution is recommended. Chief Relay Tester: ORALIA Transcribe Date/Time: Oct 07 2021 11:58A Dictated by : LORENA CABAN MD This examination was interpreted and the report reviewed and electronically signed by: LORENA CABAN MD on Oct 07 2021 12:00PM EST [facility] Radiology Study observation (narrative) [facility] XR Chest PA and LateralOrder ed By: Ccf Provider on 10-07-2021 [facility] 10-04-2021 CNPN Telephone (UCWSTR) ROBELDEANA MEDINA ([id number]) 1940 F Date Time Provider Department 10/04/21 ROCIO ZAMORA [facility] During your visit today, we recorded the following information about you: Rocio Zamora APRN.[facility] 10/04/2021 7:14 AM Signed Please inform [...] attack Date Reviewed: 10/03/2021 Reviewed by: Christen Pacheco, MA - Fully Assessed Reason for Visit: [...] Encounter Status:Closed by KARLI NIXON on 10/04/21 [facility] CNOVon 10-03-2021 CNOV Office Visit (UCWSTR ) DEANA ROMAN ([id number]) 1940 F Date Time Provider Department 10/03/21 1:45 PM GARY KHAN [facility] During your visit today, we recorded the [...] Diagnosis:Acute cough [R05.1] Order(s):STREP A MOLECULAR (POC) [9473940] Order #: [id number]. #:[id number] 2019 CORONAVIRUS [SQCOVID] Order #: [id number] FUTURE 2019 CORONAVIRUS [SQCOVID] Order #: [id number]. #:[id number] benzonatate (TESSALON PERLE) 100 mg capsuleTake 1 [...] Encounter Status:Closed by GARY KHAN on 10/03/21 [facility] SARS-CoV-2 RNA Resp Ql JEANMARIE+p gaudencio 10-03-2021 SARS-CoV-2 (COVID-19) RNA JEANMARIE+probe Ql (Resp) COVID 19 RESULT: SARS-CoV-2 (Agent of COVID-19) Not Detected by RT-PCR or equivalent method. This test was developed and its performance characteristics determined by [facility]'s [facility] [place]. This test has been authorized by FDA under an Emergency Use Authorization (EUA). This test has been validated in accordance with the FDA's Guidance Document Policy for Diagnostics Testing in Laboratories Certified to Perform High Complexity Testing under CLIA prior to Emergency use Authorization for Coronavirus Disease 2019 during the Public Health Emergency issued on April 19, 2019. Test performed by [facility], [facility] [place], [address] [place] [address]. Normal [facility] Comment on above: Performed By: #### 9 4500-6 ####[facility] LABCLIA [id number] [address] [id number] [id number] [place] STREP A MOLECULAR (POC)on Procedural Control Valid [facility] Strep A (POCT) Negative Negative [facility] CNPNon 09-02-2021 CNPN Telephone (UCWSTR) DEANA ROMAN ([id number]) 1940 F Date Time Provider Department 09/02/21 HARJIT GARCIA [facility] During your visit today, we recorded the following information about you: Harjit Garcia APRN.REPRODUCTION ORDER PROCESSOR 09/02/2021 8:39 AM Signed Patient is positive [...] bladder prolapse [N81.10] 02/19/2011 Encounter Status:Closed by LEELAFREDDYJESSICAYVETTE PABLO on 09/02/21 [facility] CNOVon 09-01-2021 CNOV Office Visit (UCWSTR ) DEANA ROMAN ([id number]) 1940 F Date Time Provider Department 09/01/21 10:00 AM ROCIO ZAMORA [facility] During your visit today, we recorded the following information about you: Temperature Pulse Respiration Blood pressure 98.2 degrees 70/minute 21/minute 148/82 Weight 72.5 kg Rocio Zamora APRN.REPRODUCTION ORDER PROCESSOR 09/01/2021 10:45 AM Signed This note was created using Neolane. Subjective Deana Roman is a 80 year [...] go shopping today and a picnic this when can I go out and about The history is provided by the patient. No speech language therapist was used. Cough This is a new [...] injury. No (more content not included)... Normal [facility] Absolute lymphocyte counton 07-15-2021 Lymphocytes Auto (Unsp spec) [#/Vol] 1.71 10*3/uL 0.83-4.51 [facility] Work Phone: [phone] Basophil percentageon 2021 Basophils/100 WBC (Bld) 0.9 % 0-1 [facility] Work Phone: Bilirubin [Mass/Vol] 0.50 mg/dL 0.20-1.00 [facility] Work Phone: Comment on above: For patients on eltr ombopag therapy, use of Dimension [place] TBIL is not recommended. Chloride [Moles/Vol] 102 mmol/L 98-107 [facility] Work Phone: [phone] Eosinophils/100 WBC (Bld) 1.8 % 0-5 [facility] Work Phone: [phone] Glucose [Mass/Vol] 102 mg/dL 74-106 [facility] Work Phone: [phone] Comment on above: Fasting Glucose resu lt from 100 to 125 mg/dL suggests IMPAIRED HOMEOSTASIS per A.D.A. criteria. Neutrophils (Bld) [#/Vol] 2.1 10*3/uL 2.0-7.7 [facility] Work Phone: Neutrophils/100 WBC (Bld) 46.4 % 47-70 [facility] Work Phone: Potassium [Moles/Vol] 3.9 mmol/L 3.5-5.1 [facility] Work Phone: Protein [Mass/Vol] 7.0 g/dL 6.4-8.2 [facility] Work Phone: Sodium [Moles/Vol] 139 mmol/L 136-145 [facility] Work Phone: WBC (Bld) [#/Vol] 4.4 10*3/uL 4.4-11.0 [facility] Work Phone: Blood erythrocytes count (nu mber/volume)on 07-15-2021 RBC (Bld) [#/Vol] 3.50 10*6/uL 4.2-5.4 [facility]: Blood hemoglobin measurement (mass/volume)on 07-15-2021 Hemoglobin (Bld) [Mass/Vol] 11.6 g/dL 12.0-15.0 [facility] Work Phone: Blood lymphocytes/100 leukoc yteson 07-15-2021 Lymphocytes/100 WBC (Bld) 38.8 % 19-41 [facility] Work Phone: Blood monocytes/100 leukocyt eson 07-15-2021 Monocytes/100 WBC (Bld) 11.6 % 0-10 [facility] Work Phone: Blood platelet mean volumeon 07-15-2021 Platelet mean volume (Bld) [Entitic vol] 10.3 fL 6.2-12.0 [facility] Work Phone: Determination of erythrocyte mean corpuscular volume (MCV)on 07-15-2021 MCV (RBC) [Entitic vol] 102.6 fL 81-99 [facility] Work Phone: Hematocrit Auto (Bld) [Volum e fraction]on 07-15-2021 Hematocrit (Bld) [Volume fraction] 35.9 % 37-47 [facility] Work Phone: [phone] Laboratory - Chemistry and C hemistry - challengeon 07-15-2021 ALP [Catalytic activity/Vol] 64 U/L 45-117 [facility] Work Phone: ALT [Catalytic activity/Vol] 17 U/L 13-56 [facility] Work Phone: CO2 [Moles/Vol] 32.0 mmol/L 21.0-32.0 [facility] Work Phone: [phone] Globulin (S) [Mass/Vol] 3.6 g/dL 2.2-4.2 [facility] Work Phone: [phone] Urea nitrogen/Creatinine [Mass ratio] 27.1 mg/mg 10-20 [facility] Work Phone: [phone] Laboratory - Hematology and Cell countson 07-15-2021 Erythrocyte distribution width (RBC) [Entitic vol] 46.6 fL 35.1-43.9 [facility] Work Phone: [phone] Erythrocyte distribution width (RBC) [Ratio] 12.5 % 11.6-14.6 [facility] Work Phone: [phone] Immature granulocytes/100 WBC (Bld) 0.500 % 0.0-0.9 [facility] Work Phone: [phone] Comment on above: IG% - Immature Granu locytes (promyelocytes, myelocytes and metamyelocytes) > 1% indicates that a LEFT SHIFT is Present. MCH (RBC) [Entitic mass] 33.1 pg 27.0-32.0 [facility] Work Phone: [phone] Nucleated RBC/100 WBC (Bld) [Ratio] 0 % 0-5 [facility] Work Phone: MCHC Auto (RBC) [Mass/Vol]on 07-15-2021 MCHC (RBC) [Mass/Vol] 32.3 g/dL 32-36 [facility] Work Phone: [phone] No Panel Informationon 07-15 Estimated GFR (MDRD) Amer 87 mL/min >60 [facility] Work Phone: Comment on above: GFR Calc Estimated GFR (MDRD) Non-Af Amer 72 mL/min >60 [facility] Work Phone: Comment on above: Non- GFR Calc Platelets bldon 07-15-2021 Platelets (Bld) [#/Vol] 321 10*3/uL 150-450 [facility] Work Phone: Serum or plasma albumin bentley urement (mass/volume)on 07-15-2021 Albumin [Mass/Vol] 3.4 g/dL 3.2-5.0 [facility] Work Phone: Serum or plasma albumin/glob ulin mass ratioon 07-15-2021 Albumin/Globulin [Mass ratio] 0.9 {ratio} 0.9-2.4 [facility] Work Phone: Serum or plasma calcium bentley urement (mass/volume)on 07-15-2021 Calcium [Mass/Vol] 9.1 mg/dL 8.5-10.1 [facility] Work Phone: Serum or plasma creatinine m easurement (mass/volume)on 07-15-2021 Creatinine [Mass/Vol] 0.81 mg/dL 0.55-1.02 [facility] Work Phone: Comment on above: The validity of the calculated GFR & GFRAA in patients over 70 years has not been determined. Clinical correlation is essential. Serum or plasma urea nitroge n measurement (mass/volume)on 07-15-2021 Urea nitrogen [Mass/Vol] 22 mg/dL 7-18 [facility] Work Phone: Thin prep Papanicolaou smear with manual screeningon 07-15-2021 Thin prep Papanicolaou smear with manual screening 18 U/L 15-37 [facility] Work Phone: Thin prep Papanicolaou smear with manual screening 5 5-15 [facility] Work Phone: CNCOon 09-13-2016 CNCO Letter Text Jovany Huertas [facility] [id number] [facility], [address] [place], [place] [address]Zspoz: [phone]: [phone] 2016Desara Babcock,I wanted to take this opportunity to thank you for referring Deana Reynoso [facility] for a consultation. Deana Roman isscheduled to meet with me on 10/09/16.It is a privilege to assist you in the treatment of your patient and I willkeep you informed of all treatment plans and procedures performed.Thank you again for referring to [facility].Sincerely,Jovany Huertas MD(Electronically signed to expedite care) Normal [facility] Vital Signs Date Time Vital Sign Value Performing Clinician Facility 08-28-2024 10:37-0400 Diastolic blood pressure 59 mm[Hg] No Primary Care Physician [facility] 08-28-2024 10:37-0400 Heart rate 71 /min No Primary Care Physician [facility] 08-28-2024 10:37-0400 Respiratory rate 16 /min No Primary Care Physician [facility] 08-28-2024 10:37-0400 Systolic blood pressure 142 mm[Hg] No Primary Care Physician [facility] 08-28-2024 09:04-0400 Body height 165.1 cm No Primary Care Physician [facility] 08-28-2024 09:04-0400 Body mass index (BMI) [Ratio] 27.3 kg/m2 No Primary Care Physician [facility] 08-28-2024 09:04-0400 Body temperature 98 [degF] No Primary Care Physician [facility] 08-28-2024 09:04-0400 Body weight 74.38 kg No Primary Care Physician [facility] 08-28-2024 09:04-0400 SaO2% (BldA) [Mass fraction] 97 % No Primary Care Physician [facility] 07-22-2024 10:39-0400 Body height 165.1 cm No Primary Care Physician [facility] 09-13-2022 10:05-0400 Body temperature 96.9 [degF] [facility] 09-13-2022 10:05-0400 Diastolic blood pressure 61 mm[Hg] [facility] 09-13-2022 10:05-0400 Heart rate 62 /min [facility] 09-13-2022 10:05-0400 Respiratory rate 16 /min [facility] 09-13-2022 10:05-0400 SaO2% (BldA) [Mass fraction] 96 % [facility] 09-13-2022 10:05-0400 Systolic blood pressure 103 mm[Hg] [facility] 09-13-2022 08:37-0400 Body height 165.1 cm [facility] 09-13-2022 08:37-0400 Body mass index (BMI) [Ratio] 26.2 kg/m2 [facility] 09-13-2022 08:37-0400 Body weight 71.66 kg [facility] 10-28-2021 10:04-0400 Diastolic blood pressure 65 mm[Hg] [facility] Work Phone: 10-28-2021 10:04-0400 Heart rate 65 /min [facility] Work Phone: 10-28-2021 10:04-0400 Systolic blood pressure 117 mm[Hg] [facility] Work Phone: 10-28-2021 08:28-0400 Body height 165.1 cm [facility] Work Phone: 10-28-2021 08:28-0400 Body mass index (BMI) [Ratio] 25.8 kg/m2 [facility] Work Phone: 10-28-2021 08:28-0400 Body temperature 96.6 [degF] Out [facility] Work Phone: 10-28-2021 08:28-0400 Body weight 70.39 kg [facility] Work Phone: 10-28-2021 08:28-0400 Respiratory rate 16 /min [facility] Work Phone: 10-28-2021 08:28-0400 SaO2% (BldA) [Mass fraction] 95 % [facility] [facility] Work Phone: 10-20-2021 12:05-0400 Body mass index (BMI) [Ratio] 26.1 kg/m2 Out [facility] Work Phone: 10-20-2021 12:05-0400 Body temperature 98.6 [degF] Out [facility] Work Phone: 10-20-2021 12:05-0400 Body weight 71.21 kg Out [facility] Work Phone: 10-20-2021 12:05-0400 Diastolic blood pressure 74 mm[Hg] Out [facility] Work Phone: 10-20-2021 12:05-0400 Heart rate 88 /min Out [facility] Work Phone: 10-20-2021 12:05-0400 Respiratory rate 14 /min Out [facility] Work Phone: 10-20-2021 12:05-0400 SaO2% (BldA) [Mass fraction] 94 % Out [facility] Work Phone: 10-20-2021 12:05-0400 Systolic blood pressure 126 mm[Hg] Out [facility] Work Phone: 10-20-2021 11:22-0400 Body temperature 98.29 [degF] Che Boyle APRN.REPRODUCTION ORDER PROCESSOR Work Phone: [facility] 10-20-2021 11:22-0400 Body weight 71.31 kg Che Boyle APRN.REPRODUCTION ORDER PROCESSOR Work Phone: [facility] 10-20-2021 11:22-0400 Diastolic blood pressure 68 mm[Hg] Che Boyle APRN.REPRODUCTION ORDER PROCESSOR Work Phone: [facility] 10-20-2021 11:22-0400 Heart rate 86 /min Che Montana ADAPTED PHYSICAL EDUCATION TEACHER.REPRODUCTION ORDER PROCESSOR Work Phone: [facility] 10-20-2021 11:22-0400 Respiratory rate 21 /min Che Montana ADAPTED PHYSICAL EDUCATION TEACHER.REPRODUCTION ORDER PROCESSOR Work Phone: [facility] 10-20-2021 11:22-0400 SaO2% (BldA) [Mass fraction] 98 % Che Montana ADAPTED PHYSICAL EDUCATION TEACHER.REPRODUCTION ORDER PROCESSOR Work Phone: [facility] 10-20-2021 11:22-0400 Systolic blood pressure 130 mm[Hg] Che Montana ADAPTED PHYSICAL EDUCATION TEACHER.REPRODUCTION ORDER PROCESSOR Work Phone: [facility] 10-07-2021 11:00-0400 Body temperature 103.5 [degF] Rocio Zamora ADAPTED PHYSICAL EDUCATION TEACHER.REPRODUCTION ORDER PROCESSOR Work Phone: [facility] 10-07-2021 11:00-0400 Body weight 69.4 kg Rocio Zamora ADAPTED PHYSICAL EDUCATION TEACHER.REPRODUCTION ORDER PROCESSOR Work Phone: [facility] 10-07-2021 11:00-0400 Diastolic blood pressure 62 mm[Hg] Rocio Zamora ADAPTED PHYSICAL EDUCATION TEACHER.REPRODUCTION ORDER PROCESSOR Work Phone: [facility] 10-07-2021 11:00-0400 Heart rate 125 /min Rocio Zamora ADAPTED PHYSICAL EDUCATION TEACHER.REPRODUCTION ORDER PROCESSOR Work Phone: [facility] 10-07-2021 11:00-0400 Respiratory rate 20 /min Rocio Zamora ADAPTED PHYSICAL EDUCATION TEACHER.REPRODUCTION ORDER PROCESSOR Work Phone: [facility] 10-07-2021 11:00-0400 SaO2% (BldA) [Mass fraction] 90 % Rocio Zamora ADAPTED PHYSICAL EDUCATION TEACHER.REPRODUCTION ORDER PROCESSOR Work Phone: [facility] 10-07-2021 11:00-0400 Systolic blood pressure 148 mm[Hg] Rocio Zamora ADAPTED PHYSICAL EDUCATION TEACHER.REPRODUCTION ORDER PROCESSOR Work Phone: [facility] 10-03-2021 13:56-0400 Body temperature 99.1 [degF] Gary Khan MD Work Phone: [facility] 10-03-2021 13:56-0400 Body weight 73.85 kg Gary Khan MD Work Phone: [facility] 10-03-2021 13:56-0400 Diastolic blood pressure 64 mm[Hg] Gary Khan MD Work Phone: [facility] 10-03-2021 13:56-0400 Heart rate 96 /min Gary Khan MD Work Phone: [facility] 10-03-2021 13:56-0400 Respiratory rate 18 /min Gary Khan MD Work Phone: [facility] 10-03-2021 13:56-0400 SaO2% (BldA) [Mass fraction] 97 % Gary Khan MD Work Phone: [facility] 10-03-2021 13:56-0400 Systolic blood pressure 110 mm[Hg] Gary Khan MD Work Phone: [facility] 09-01-2021 09:59-0400 Body temperature 98.2 [degF] Rocio Zamora ADAPTED PHYSICAL EDUCATION TEACHER.REPRODUCTION ORDER PROCESSOR Work Phone: [facility] 09-01-2021 09:59-0400 Body weight 72.48 kg Rocio Zamora ADAPTED PHYSICAL EDUCATION TEACHER.REPRODUCTION ORDER PROCESSOR Work Phone: [facility] 09-01-2021 09:59-0400 Diastolic blood pressure 82 mm[Hg] Rocio Zamora ADAPTED PHYSICAL EDUCATION TEACHER.REPRODUCTION ORDER PROCESSOR Work Phone: [facility] 09-01-2021 09:59-0400 Heart rate 70 /min Rocio Zamora ADAPTED PHYSICAL EDUCATION TEACHER.REPRODUCTION ORDER PROCESSOR Work Phone: [facility] 09-01-2021 09:59-0400 Respiratory rate 21 /min Rocio Zamora ADAPTED PHYSICAL EDUCATION TEACHER.REPRODUCTION ORDER PROCESSOR Work Phone: [facility] 09-01-2021 09:59-0400 SaO2% (BldA) [Mass fraction] 97 % Rocio Zamora ADAPTED PHYSICAL EDUCATION TEACHER.REPRODUCTION ORDER PROCESSOR Work Phone: [facility] 09-01-2021 09:59-0400 Systolic blood pressure 148 mm[Hg] Rocio Zamora REPRODUCTION ORDER PROCESSOR Work Phone: [facility] 08-25-2021 09:24-0400 Body temperature 99.1 [degF] [facility] Work Phone: 08-25-2021 09:24-0400 Diastolic blood pressure 60 mm[Hg] [facility] Work Phone: 08-25-2021 09:24-0400 Heart rate 81 /min [facility] Work Phone: 08-25-2021 09:24-0400 SaO2% (BldA) [Mass fraction] 96 % [facility] Work Phone: 08-25-2021 09:24-0400 Systolic blood pressure 118 mm[Hg] [facility] Work Phone: 08-25-2021 08:24-0400 Body height 163.83 cm [facility] Work Phone: 08-25-2021 08:24-0400 Body mass index (BMI) [Ratio] 27.1 kg/m2 [facility] Work Phone: 08-25-2021 08:24-0400 Body weight 73.02 kg [facility] Work Phone: 08-25-2021 08:24-0400 Respiratory rate 16 /min [facility] Work Phone: Encounters Encounter Date Encounter Type Care Provider Facility Start: 10-02-2024 End: 10-02-2024 ambulatory No Primary Care Physician -Laboratory Specimen Start: 10-02-2024 End: 10-02-[address] Marissa Amezcua MD -Laboratory Specimen Work Phone: Start: 10-02-2024 End: 10-02-2024 ambulatory Marissa Amezcua Facility:[facility] Start: 08-28-2024 End: 08-28-[address] Marissa Amezcua MD -Medical Out Work Phone: Start: 08-28-2024 End: 08-28-2024 ambulatory No Primary Care Physician -Medical Out Start: 07-22-2024 End: 07-22-[address] Kj Villa MD -[facility] Start: 07-22-2024 End: 07-22-2024 ambulatory No Primary Care Physician [facility] Work Phone: Start: 07-16-2024 End: 07-16-2024 ambulatory No Primary Care Physician [facility] Work Phone: Start: 07-16-2024 End: 07-16-[address] Marissa Amezcua MD -Laboratory [place] Work Phone: Start: 07-16-2024 End: 07-16-2024 ambulatory [facility] Facility:[facility] Start: 10-23-2023 End: 10-23-2023 ambulatory [facility] Facility:[facility] Start: 2023 End: 2023 ambulatory [facility] Facility:[facility] Start: 10-16-2022 End: 10-16-2022 ambulatory [facility] Work Phone: Start: 10-16-2022 End: 10-16-2022 Patient encounter procedure [facility]-Laboratory, [place] Work Phone: Start: 09-13-2022 End: 09-13-2022 ambulatory [facility] Work Phone: Start: 09-13-2022 End: 09-13-2022 Patient encounter procedure [facility]-Medical Out Work Phone: Start: 07-21-2022 End: 07-21-2022 ambulatory [facility] Work Phone: Start: 07-21-2022 End: 07-21-2022 Patient encounter procedure [facility]-Laboratory, [place] Start: 07-19-2022 End: 07-19-2022 ambulatory [facility] Work Phone: Start: 07-19-2022 End: 07-19-2022 Patient encounter procedure [facility] Start: 10-28-2021 End: 10-28-2021 ambulatory Out of [facility] Doctor [facility] Work Phone: Start: 10-28-2021 End: 10-28-2021 Patient encounter procedure [place] [facility]-Medical Out Start: 10-20-2021 End: 10-20-2021 Patient encounter procedure Che Boyle ADAPTED PHYSICAL EDUCATION TEACHER.REPRODUCTION ORDER PROCESSOR Work Phone: [facility] Comment on above: Acute cough (Primary Dx) Start: 10-13-2021 End: 10-13-2021 ambulatory [facility] Work Phone: Start: 10-13-2021 End: 10-13-2021 Patient encounter procedure [facility] Start: 10-08-2021 Telephone encounter Selene Chamberlain ADAPTED PHYSICAL EDUCATION TEACHER.REPRODUCTION ORDER PROCESSOR Work Phone: [facility] Comment on above: Results, Lab Start: 10-07-2021 End: 10-07-2021 Patient encounter procedure Rocio Zamora ADAPTED PHYSICAL EDUCATION TEACHER.REPRODUCTION ORDER PROCESSOR Work Phone: [facility] Comment on above: Acute cough (Primary Dx); Bacterial pneumonia; Fever, unspecified fever cause Start: 10-07-2021 End: 10-07-2021 Subsequent hospital visit by physician [facility] Work Phone: Radiology Comment on above: Acute cough [R05.1] Start: 10-04-2021 Telephone encounter Rocio clinton ADAPTED PHYSICAL EDUCATION TEACHER.REPRODUCTION ORDER PROCESSOR Work Phone: [facility] Comment on above: Results Start: 10-03-2021 End: 10-03-2021 Patient encounter procedure Gary Khan MD Work Phone: [facility] Comment on above: Sore throat (Primary Dx); Acute cough Start: 09-02-2021 Telephone encounter Harjit Garcia APRN.REPRODUCTION ORDER PROCESSOR Work Phone: [facility] Comment on above: Results Start: 09-01-2021 End: 09-01-2021 Patient encounter procedure Rocio Zamora APRN.REPRODUCTION ORDER PROCESSOR Work Phone: [facility] Comment on above: Suspected COVID-19 v irus infection (Primary Dx) Start: 08-25-2021 End: 08-25-2021 Patient encounter procedure [facility]-Medical Out Start: 07-15-2021 End: 07-15-2021 Patient encounter procedure [facility]-Laboratory, [place] Procedures Date Procedure Procedure Detail Performing Clinician Start: 10-02-2024 Anaerobic microbial culture No Primary Care Physician Start: 10-02-2024 Gram stain microscopy N o Primary Care Physician Start: 10-02-2024 End: 10-02-2024 Microbial culture, body fluid No Primary Care Physician Start: 07-22-2024 Plain x-ray of pelvi s and lower extremity No Primary Care Physician Start: 10-20-2021 Plain chest X-ray Out T own Doctor Start: 10-07-2021 Radiologic exam ches t 2 views Rocio Zamora APRN.REPRODUCTION ORDER PROCESSOR Work Phone: Start: 10-03-2021 STREP A MOLECULAR (POC) Gary Khan MD Work Phone: Plan of Treatment Date Care Activity Detail Author Start: 08-28-2024 Iv infusion therapy/prophylaxis /dx 1st to 1 hr THER/PROPH/DIAG IV INF [facility] Start: 07-22-2024 Plain x-ray of pelvi s and lower extremity Hips B/L min 2 views w/ Pelvis [facility] Start: 10-21-2023 Influenza vaccination Influenza Vacc ine (#1) [facility] Start: 02-19-2023 Advance Directive Discussion Advance Directive Discussion [facility] Start: 09-13-2022 Iv infusion therapy/prophylaxis /dx 1st to 1 hr THER/PROPH/DIAG IV INF [facility] Start: 10-28-2021 Iv infusion therapy/prophylaxis /dx 1st to 1 hr THER/PROPH/DIAG IV INF [facility] Work Phone: Start: 10-20-2021 Influenza vaccination INFLUENZA (#1) [facility] Start: 10-07-2021 End: 10-21-2021 Influenza virus A and B RNA and SARS-CoV-2 (COVID-19) N gene panel - Respiratory specimen by JEANMARIE with probe detection COVID WITH FLUA+B, ROUTINE Microbiology Routine Acute cough Bacterial pneumonia Fever, unspecified fever cause Expected: 10/07/2021, Expires: 10/21/2021 [facility] Work Phone: Comment on above: Expected: 10/07/2021 , Expires: 10/21/2021 Start: 10-03-2021 End: 10-17-2021 SARS-CoV-2 (COVID-19) RNA [Presence] in Respiratory specimen by JEANMARIE with probe detection 2019 CORONAVIRUS Microbiology Routine Sore throat Expected: 10/03/2021, Expires: 10/17/2021 [facility] Work Phone: Comment on above: Expected: 10/03/2021 , Expires: 10/17/2021 Start: 09-01-2021 End: 09-15-2021 Influenza virus A and B RNA and SARS-CoV-2 (COVID-19) N gene panel - Respiratory specimen by JEANMARIE with probe detection [facility] Work Phone: Comment on above: Expected: 09/01/2021 , Expires: 09/15/2021 Start: 08-25-2021 Iv infusion therapy/prophylaxis /dx 1st to 1 hr THER/PROPH/DIAG IV INF [facility] Work Phone: Start: 02-19-2021 ADVANCE DIRECTIVE DISCUSSION ADVANCE DIRECTIVE DISCUSSION [facility] Start: 2013 RSV Vaccine (1 - 1-d ose 75+ series) RSV Vaccine (1 - 1-dose 75+ series) [facility] Start: 02-19-2013 Pneumococcal Vaccine : 65+ (2 of 2 - PCV) Pneumococcal Vaccine: 65+ (2 of 2 - PCV) [facility] Start: 04-16-2009 Shingrix Vaccine (1 of 2) Shingrix Vaccine (1 of 2) [facility] Start: 10-20-2003 BONE DENSITY BONE DENSITY [facility] Start: 10-20-2003 Screening for osteoporosis Bone Density Screening [facility] Start: 10-20-1983 DIABETES SCREEN DIABETES SCREEN [facility] Start: 10-20-1983 Diabetes Screening Diabetes Screenin g [facility] Start: 1957 SHINGRIX VACCINE (1 of 2) SHINGRIX VACCINE (1 of 2) [facility] Start: 1957 Urine microalbumin profile [facility] Start: 1956 Anxiety Screening Anxiety Screening [facility] Start: 1956 Depression Screening Depression Scre ening [facility] Start: 1949 Screening for malign ant neoplasm of cervix Cervical Cancer Screening [facility] Start: 1944 PNEUMOCOCCAL: 65+ (1 - PCV) PNEUMOCOCCAL: 65+ (1 - PCV) [facility] Start: 10-20-1943 COVID-19 VACCINE (#1) COVID-19 VACCI NE (#1) [facility] Start: 04-19-1939 COVID-19 VACCINE (#1) COVID-19 VACCI NE (#1) [facility] Payers Date Payer Category Payer Self-pay [id number] 2023 Unknown [id number] 2021 Medicare AETNA MEDICARE A ETNA MEDICARE PPO [id number] 2021-Present [phone] [address] [place] [address] PPO [id number] 2021 Medicare AETNA MEDICARE A ETNA MEDICARE PPO [id number] 2021-Present [phone] [address] [place] [address] PPO [id number] 2011 Unknown [id number] 2003 Medicare [id number] 2003 Medicare [id number] Private Health Insurance 101 [id number] Unknown [id number] 62 Unknown [id number] 62 Unknown [id number] 62 Unknown [id number] 62 Unknown [id number] 62 Unknown [id number] 62 Social History Date Type Detail [facility] Work Phone: Start: 1940 Sex Assigned At Female [facility] Start: 10-03-2021 [facility] tobacco [facility] Start: 09-01-2021 End: 10-07-2021 Alcohol intake Not Asked [facility] Start: 1940 Sex Assigned At Not on file [facility] Start: 08-22-2021 End: 09-01-2021 Exposure to SARS-CoV-2 (event) Yes [facility] Work Phone: Start: 10-03-2021 Tobacco use and exposure Smokeless tobacco non-user [facility] Start: 09-23-2021 End: 10-20-2021 Exposure to SARS-CoV-2 (event) Not sure [facility] Start: 10-07-2021 History of Social function [facility] Start: 10-07-2021 Tobacco use panel [facility] Work Phone: Mental Status Date Assessment Result Facility 08-28-2024 Cognitive function Voice/Name [facility] Work Phone: 09-13-2022 Cognitive function Voice/Name [facility] Work Phone: 10-28-2021 Cognitive function Awake;Alert;A ppropriate;Fol lows Commands [facility] Work Phone: 08-25-2021 Cognitive function Awake;Alert;A ppropriate;Fol lows Commands [facility] Work Phone: Clinical Notes 09-01-2021 to 10-20-2021 Che Boyle APRN.REPRODUCTION ORDER PROCESSOR - 10/20/2021 12:06 PM EDTTelephone Encounter - Karli Nixon - 10/08/2021 9:10 AM EDTTelephone Encounter - Karli Nixon - 10/08/2021 9:10 AM EDTPatient Instructions Note Date & Type Note Facility 10-20-2021 Note HNO ID: [id number] Author: Che Boyle APRN.REPRODUCTION ORDER PROCESSOR Service: ? Author Type: Nurse Practitioner Type: [...] 786.2, ICD10: R05.1 Patient was to go [facility] and get xray as xray services [place] in [facility]. I called patient after few hours, patient stated [facility]. - XR CHEST 2V FRONTAL/LAT Che Boyle APRN.[facility] 10-20-2021 History of Presen t illness Narrative [...] 786.2, ICD10: R05.1 Patient was to go [facility] and get xray as xray services [place] in [facility]. I called patient after few hours, patient stated [facility]. - XR CHEST 2V FRONTAL/LAT Che Boyle APRN.REPRODUCTION ORDER PROCESSOR documented in this encounter [facility] 10-08-2021 Miscellaneous Notes Patient given results and verbalized understanding of instructions given. Karli Nixon ----- Message from Selene Mcgill APRN.REPRODUCTION ORDER PROCESSOR sent at 10/08/2021 8:06 AM EDT ----- Please advise patient of negative COVID and flu test. documented in this encounter [facility] 10-07-2021 Note HNO ID: [id number] Author: Leidy Martinez RT(R) Service: Nuclear Medicine Author Type: Technologist [...] PERIPHERAL IV DATA: Not applicable SIGNED BY: Leidy Martinez RT(R) October 07, 2021 11:35 AM [facility] 10-07-2021 Note HNO ID: [id number] Author: Rocio Zamora APRN.REPRODUCTION ORDER PROCESSOR Service: ? Author Type: Nurse Practitioner Type: Progress Notes Filed: 10/07/2021 1:42 PM Note Text: This note was created using Particle Codeter. 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 The history is provided by the patient. No speech language therapist was used. Cough This is a new [...] General: No swelling, (more content not included)... [facility] 10-07-2021 Instructions Rocio Zamora APRN.[facility] - 10/07/2021 12:16 PM EDT GENERAL [...] or feel confused. documented in this encounter [facility] 10-07-2021 Nurse Note Pt given albuterol treatment O2 before 92. After treatment O2 was 90. Christen Pacheco MA documented in this encounter [facility] 10-07-2021 History of Presen t illness [...] 2021 11:35 AM documented in this encounter [facility] 10-07-2021 History of Presen t illness Narrative This note was created using Neolane. 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 The history is provided by the patient. No speech language therapist was used. Cough This is a new [...] Macrobid [Nitrofurantoin Monohyd/M-Cryst] MEDICATIONS golimumab (SIMPONI ARIA) infusion^Inject intravenously.^Disp: ^Rfl: benzonatate (TESSALON PERLE) 100 [...] content normal. Judgment: Judgment normal. Rocio Zamora APRN.REPRODUCTION ORDER PROCESSOR ASSESSMENT/PLAN: 1. Acute cough - ICD9: 786.2, [...] to seek ED COVID obtained Rocio Zamora APRN.REPRODUCTION ORDER PROCESSOR documented in this encounter [facility] 10-04-2021 Miscellaneous Notes Patient given results and verbalized understanding of instructions given. Karli Nixon Please inform patient of negative COVID. Continue treatment plan discussed at time of discharge. Follow up with PCP documented in this encounter [facility] 10-03-2021 Note HNO ID: [id number] Author: Gary Khan MD Service: ? Author [...] BENZONATATE 100 MG CAPSULE Gary Khan MD [facility] 10-03-2021 History of Presen t illness Narrative [...] Gary Khan MD documented in this encounter [facility] 09-02-2021 Miscellaneous Notes Phone call placed [...] negative for flu documented in this encounter [facility] 09-01-2021 Influenza virus A and B RNA and SARS-CoV-2 (COVID-19) N gene panel JEANMARIE+probe (Resp) COVID 19 RESULT: SARS-CoV-2 (Agent of COVID-19) Detected by RT-PCR or equivalent method. taylor [id number] (DENIZ)_EUA This test was developed and its performance characteristics determined by [facility]'s [facility] [place]. This test has been authorized by FDA under an Emergency Use Authorization (EUA). This test has been validated in accordance with the FDA's Guidance Document Policy for Diagnostics Testing in Laboratories Certified to Perform High Complexity Testing under CLIA prior to Emergency use Authorization for Coronavirus Disease 2019 during the Public Health Emergency issued on April 19, 2019. Test performed by [facility], Donato Quintero [facility] [place], [facility] [place] [address]. INFLUENZA A PCR: Negative for Influenza A by RT-PCR INFLUENZA B PCR: Negative for Influenza B by RT-PCR [facility] Comment on above: Performed By: #### [id number] ####[facility] LABCL[facility] [id number] [place] [address] [place] 09-01-2021 Note HNO ID: [id number] Author: Rocio Zamora APRN.REPRODUCTION ORDER PROCESSOR Service: ? Author Type: Nurse Practitioner Type: Progress Notes Filed: 09/01/2021 10:45 AM Note Text: This note was created using [employer]. Subjective Deana Roman is a 80 year [...] history is provided by the patient. No speech language therapist was used. Cough This is a new [...] jaundiced or p (more content not included)... [facility] 09-01-2021 Instructions Rocio Zamora APRN.[facility] - 09/01/2021 10:14 AM EDT Beginning [...] to your local emergency facility: Notify the brownell operator that you are seeking care for [...] be around others. documented in this encounter [facility] 09-01-2021 History of Presen t illness Narrative This note was created using Neolane. Subjective Deana Roman is a 80 year [...] go shopping today and a picnic this when can I go out and about The history is provided by the patient. No speech language therapist was used. Cough This is a new [...] - COVID WITH FLUA+B, ROUTINE Rocio Zamora APRN.ELISA documented in this encounter [facility] Evaluation note No assessment inform ation available [facility] Work Phone: Evaluation note Diagnosis Suspected COVID-19 virus infection- Primary [facility] Sore throat- Primary Acute pharyngitis Acute cough documented in this encounter [facility] note* Diagnosis Acute cough- Primary Bacterial pneumonia Bacterial pneumonia, unspecified Fever, unspecified fever cause documented in this encounter [facility] note* Diagnosis Acute cough- Primary documented in this encounter [facility] note* Diagnosis Onset Date Resolution Status Pneumonia acute [facility] Work Phone: Evaluation note* Diagnosis Acute cough documented in this encounter [facility] for referral (narrative)No reason for referral information availableWTriHealth Work Phone: Summary Purpose Family History No Family History Records FoundNo Family History Records FoundNo Family History Records Found Advance Directives No Advanced Directives Records Found Advance Directive Response Recorded Date/ Time Advance Directives Yes October 9:56am Living Will Yes November 04, 2015 9:56am Power of Tone Regulator Yes October 9:56am Advance Directive Response Recorded Date/ Time Advance Directives Yes October 9:56am Advance Directive Response Recorded Date/ Time Advance Directives Yes July 22 10:39am Chief Complaint and Reason for Visit Chief Complaint S/O-PAIN- COPY PCP SUSAN SANCHEZ Chief Complaint S/O-PAIN- COPY PCP SUSAN SANCHEZ S/O- PAIN Chief Complaint S/O-PAIN- COPY PCP SUSAN SANCHEZ S/O- PAIN CHEST XRAY/PNEUMONIA xray SUSAN SANCHEZ Reason for Visit Pneumonia Chief Complaint PAIN- COPY PCP Chief Complaint PAIN- COPY PCP SUSAN SANCHEZ Chief Complaint Admit Date Pain July 16, 2024 10:07 am Chief Complaint Admit Date Pain July 16, 2024 10:07 am XRAY July 22, 2024 10:40 am Chief Complaint Admit Date Pain July 16, 2024 10:07 am XRAY July 22, 2024 10:40 am KATALINAI ARIA August 28, 2024 8:50 am Health Concerns Infection Onset Date Last [...] section and content) DATE CREATED AUTHOR 08/15/2017 [facility] DATE CREATED AUTHOR AUTHOR'S ORGANIZ ATION 10/21/2021 [facility] DATE CREATED AUTHOR AUTHOR'S ORGANIZ ATION 10/11/2024 [facility] Goals (unrecognized section and content) Goals [...] or prosecute any alcohol or drug abuse patient.[facility] the event this information is protected by the Federal Confidentiality of Alcohol and Drug Abuse Patient Records regulations: The Federal rules restrict any use of the information to criminally investigate or prosecute any alcohol or drug abuse patient.[facility] HospitalIn the event this information is protected by the Federal Confidentiality of Alcohol and Drug Abuse Patient Records regulations: The Federal rules restrict any use of the information to criminally investigate or prosecute any alcohol or drug abuse patient.[facility] HospitalIn the event this information is protected by the Federal Confidentiality of Alcohol and Drug Abuse Patient Records regulations: The Federal rules restrict any use of the information to criminally investigate or prosecute any alcohol or drug abuse patient.[facility] HospitalIn the event this information is protected by the Federal Confidentiality of Alcohol and Drug Abuse Patient Records regulations: The Federal rules restrict any use of the information to criminally investigate or prosecute any alcohol or drug abuse patient.[facility] HospitalIn the event this information is protected by the Federal Confidentiality of Alcohol and Drug Abuse Patient Records regulations: The Federal rules restrict any use of the information to criminally investigate or prosecute any alcohol or drug abuse patient.[facility] HospitalIn the event this information is protected by the Federal Confidentiality of Alcohol and Drug Abuse Patient Records regulations: The Federal rules restrict any use of the information to criminally investigate or prosecute any alcohol or drug abuse patient.[facility] HospitalIn the event this information is protected by the Federal Confidentiality of Alcohol and Drug Abuse Patient Records regulations: The Federal rules restrict any use of the information to criminally investigate or prosecute any alcohol or drug abuse patient.[facility] Reason for Visit (unrecogniz ed section [...] Care Teams (unrecognized sec tion and content) Curing Supervisor Relationship Specialty Start Date End Date León Marcano MD PCP - General Family Practice 10/19/15 Lucretia Babcock MD [address] [place] [address] Referring REGULATORY AFFAIRS ANALYST 09/13/16 Curing Supervisor Relationship Specialty Start Date End Date León Marcano MD PCP - General Family Practice 10/19/15 Lucretia Babcock MD [address] [place] [address] Referring REGULATORY AFFAIRS ANALYST 09/13/16 Curing Supervisor Relationship Specialty Start Date End Date León Marcano MD PCP - General Family Practice 10/19/15 Lucretia Babcock MD [address] [place] [address] Referring REGULATORY AFFAIRS ANALYST 09/13/16 Curing Supervisor Relationship Specialty Start Date End Date León Marcano MD PCP - General Family Practice 10/19/15 Lucretia Babcock MD [address] [place] [address] Referring REGULATORY AFFAIRS ANALYST 09/13/16 Curing Supervisor Relationship Specialty Start Date End Date León Marcano MD PCP - General Family Practice 10/19/15 Lucretia Babcock MD [address] [place], [place] [id number] Referring REGULATORY AFFAIRS ANALYST 09/13/16 Curing Supervisor Relationship Specialty Start Date End Date León Marcano MD PCP - General Family Practice 10/19/15 Lucretia Babcock MD [address] [place], [place] [address] Referring REGULATORY AFFAIRS ANALYST 09/13/16 Curing Supervisor Relationship Specialty Start Date End Date León Marcano MD PCP - General Family Practice 10/19/15 Lucretia Babcock MD [address] [place], [place] [id number] Referring REGULATORY AFFAIRS ANALYST 09/13/16 Team Status: Active Member Role Status [...] Amezcua MD Attending Provider, Referring Provider Active Curing Supervisor Relationship Specialty Start Date End Date León Marcano MD PCP - General Family Medicine 10/19/15 Lucretia Babcock MD [address] [place], [place] [phone] Referring Voip Technician 09/13/16 Team Status: Inactive Member Role Status [...] July 22, 2024 End: July 22, 2024 Team Status: Active Member Role/Relationship Status Dates No Primary Care Physician Primary Care Provider Active Team Status: Inactive Member Role/Relationship Status Dates No Primary Care Physician Primary Care Provider Active Start: July 16, 2024 End: July 16, 2024 Dr. Marissa Amezcua MD Attending Provider Active Start: July 16, 2024 End: July 16, 2024 Dr. Marissa Amezcua MD Referring Provider Active Start: July 16, 2024 End: July 16, 2024 Team Status: Inactive Member Role/Relationship Status Dates No Primary Care Physician Primary Care Provider Active Start: July 22, 2024 End: July 22, 2024 Dr. Kj Villa MD Attending Provider Active S tart: July 22, 2024 End: July 22, 2024 Team Status: Inactive Member Role/Relationship Status Dates No Primary Care Physician Primary Care Provider Active Start: August 28, 2024 End: August 28, 2024 Dr. Marissa Amezcua MD Attending Provider Active Start: August 28, 2024 End: August 28, 2024 Dr. Marissa Amezcua MD Referring Provider Active Start: August 28, 2024 End: August 28, 2024 Team Status: Inactive Member Role/Relationship Status Dates No Primary Care Physician Primary Care Provider Active Start: October 02, 2024 End: October 02, 2024 Dr. Marissa Amezcua MD Attending Provider Active Start: October 02, 2024 End: October 02, 2024 Dr. Marissa Amezcua MD Referring Provider Active Start: October 02, 2024 End: October 02, 2024 FOR RECORDS PERTAINING TO PATIENTS WHO [...] BE BASED ON THE PRIMARY CLINICAL RECORDS. [facility] [employer] [facility]. provides no warranty or guarantee of the accuracy or completeness of information in this document.
== END | disposition home or self-care (01) ==
LOC: MTLAB 13:16
PROVIDERS: Referring Provider Internal Medicine Rheumatology; Visit Provider Internal Medicine Rheumatology
DX: M06.00 Rheumatoid arthritis without rheumatoid factor, unspecified site (principal); Z79.899 Other long term (current) drug therapy; M17.0 Bilateral primary osteoarthritis of knee; M25.552 Pain in left hip; M47.897 Other spondylosis, lumbosacral region
CPT/HCPCS: 36415; 80053; 85025

== ENCOUNTER 2024-10-23 08:49 | Outpatient (CLI) | payer MEDICARE, BC, SELFPAY ==
[2024-10-23 09:01] VITALS: BP 117/59; PULSE 80; RESP 16; TEMP 36.4; O2SAT 94; BMI 27.1
[2024-10-23] MEDS: 0.9% NaCl IVPB Med Flush (100mL) 15 ML IV (09:34)
[2024-10-23] MEDS: NORMAL SALINE 0.9% IV (09:35)
[2024-10-23] MEDS: GOLIMUMAB IV (09:35)
[2024-10-23] MEDS: 0.9% NaCl Peripheral Flush Adult IV (09:36)
[2024-10-23 10:26] VITALS: BP 107/59; PULSE 71; RESP 16; TEMP 36.9; O2SAT 93
== END 2024-10-23 23:59 | disposition home or self-care (01) ==
LOC: MEDOUTP 08:52
PROVIDERS: Referring Provider Internal Medicine Rheumatology; Visit Provider Internal Medicine Rheumatology
DX: M06.00 Rheumatoid arthritis without rheumatoid factor, unspecified site (principal)
CPT/HCPCS: 96365; A4216; J1602